=== PATIENT | male | born 1985 | race Two or more races ===

== ENCOUNTER 2020-09-03 09:59 | Emergency (ER) | payer MEDICAID, SELFPAY ==
[2020-09-03 12:18] VITALS: BP 126/74; PULSE 61; RESP 16; TEMP 36.6; O2SAT 99; BMI 31.0
--- NOTE | 2020-09-03 12:18 | ED.CHESTPAIN ---
HPI - Chest Pain General Chief Complaint: Chest Pain Stated Complaint: chest pain Time Seen by Provider: 09/03/20 12:18 Source: patient Mode of arrival: ambulatory Limitations: no limitations History of Present Illness MD complaint: chest pain Pertinent past history: other (costochondritis) Onset (ago): day(s) (yesterday) Timing of current episode: constant Prior episodes: Yes Onset: during rest Pain location: right chest Pain radiation: none Severity: moderate Quality: aching Relieving factors: nothing Exacerbating factors: movement Treatment prior to arrival: other (tried flexeril without relief) Related Data Allergies Allergy/AdvReac Type Severity Reaction Status Date / Time penicillin V Allergy Unknown rash Verified 09/21/18 00:00 Penicillins [PENICILLINS] Allergy Unknown RASH Unverified 07/26/20 17:41 pravastatin Allergy Unknown chest Verified 09/21/18 00:00 pain, constipation Review of Systems Review of Systems: Constitutional : No Weight loss, No Fever, No Chills ENT/Mouth : No sore throat, No Rhinorrhea Eyes: No Eye Pain, No Swelling Cardiovascular : pos Chest Pain, no SOB, no Dyspnea on Exertion, No Orthopnea, No Edema, No Palpitations Respiratory : No Cough, No Sputum Gastrointestinal : no Nausea, No Vomiting, No Diarrhea, No abdominal Pain, No Hematochezia, No Melena Genitourinary : No Dysuria, No Urinary Frequency Musculoskeletal : No joint pain, No Myalgias, No Joint Swelling Skin : No Skin Lesions, No rash Neuro : No Weakness, No Numbness, No Dizziness, No Headache Psych : No Anxiety/Panic, No Depression Heme/Lymph: No Bruising, No Lymphadenopathy Endocrine : No Polyuria, No Polydipsia All other systems reviewed and are negative [facility] Past Medical History Attestation statement: The following information was validated with the patient. Medical History Costochondritis Social History Social History Alcohol intake: never Smoking Status: Never smoker Use of substances other than those prescribed or required for medical reasons: No Advance Directives: No Advance Directives Information Provided: Yes Physical Exam Vital Signs: Vital Signs: Vital Signs Temp Pulse Resp BP Pulse Ox 09/03/20 12:18 97.9 F 61 16 126/74 99 Body Mass Index 31.0 Appearance: Alert. Oriented X3. No acute distress. Eyes: Pupils equal, round and reactive to light. ENT: Pharynx normal. Neck: Normal inspection. Neck supple. CVS: Normal heart rate and rhythm. Pulses normal. R sided chest ttp reproduces pain Respiratory: No respiratory distress. Breath sounds normal. Abdomen: Soft and nontender. Skin: Skin warm and dry. Normal skin color. Normal skin turgor. Extremities: No lower extremity edema. No calf ttp Neuro: Oriented X 3. No motor deficit. No sensory deficit. Course Course Course Narrative: no acute findings, stable for DC MDM - Chest Pain MDM Narrative Medical decision making narrative: 35 yo male with hx of chronic chest pain and costochondritis here with pain no change from baseline, at this time will need labs, troponin x 1, EKG, CXR seems more MSK in nature Lab Data Result diagrams: 09/03/20 12:46 09/03/20 12:46 Labs: Lab Results 09/03/20 09/03/20 09/03/20 Range/Units 12:46 12:46 12:46 WBC 8.3 (4.8-10.8) X10*3/uL RBC 4.93 (4.60-5.80) X10*6/uL Hgb 14.9 (14.0-18.0) g/dl Hct 44.3 (42-52) % MCV 89.9 (80-98) fL MCH 30.2 (27.0-33.0) pg MCHC 33.6 (31.0-36.0) g/dl RDW 13.2 (11.0-16.0) % Plt Count 226 (160-400) X10*3/uL MPV 11.5 (9.4-12.4) fL Immature Gran % (Auto) 0.4 (0.0-0.4) % Neut % (Auto) 71.1 (45-73) % Lymph % (Auto) 19.6 L (20-40) % [place] % (Auto) 7.8 (2-11) % Eos % (Auto) 0.7 (0-4) % Baso % (Auto) 0.4 (0-2) % Lymph # (Auto) 1.6 (1.2-4.9) X10*3/uL [place] # (Auto) 0.7 (0.1-1.2) X10*3/uL Eos # (Auto) 0.1 (0.0-0.4) X10*3/uL Baso # (Auto) 0.0 (0.0-0.2) X10*3/uL Abs Immat Gran (auto) 0.03 (0.00-0.03) X10*3/uL Absolute Neuts (auto) 5.9 (2.0-8.3) X10*3/uL Absolute Nucleated RBC 0.000 (0.0-0.012) X10*3/uL Nucleated RBC % (auto) 0.0 (0.0-0.2) /100WBC Hold Blue Top SEE NOTE Sodium 138 (135-145) mmol/L Potassium 4.5 (3.3-5.1) mmol/l Chloride 105 (96-108) mmol/L Carbon Dioxide 24 (22-29) mmol/L Anion Gap 14 (12-20) BUN 21 H (9-16) mg/dL Creatinine 1.17 (0.5-1.4) mg/dL Estim Creat Clear Calc 100.3 Estimated GFR > 60 Random Glucose 92 (60-115) mg/dL Calcium 9.4 (8.4-10.2) mg/dL Troponin I High Sens (<3.5-35.0) ng/L 09/03/20 Range/Units 12:46 WBC (4.8-10.8) X10*3/uL RBC (4.60-5.80) X10*6/uL Hgb (14.0-18.0) g/dl Hct (42-52) % MCV (80-98) fL MCH (27.0-33.0) pg MCHC (31.0-36.0) g/dl RDW (11.0-16.0) % Plt Count (160-400) X10*3/uL MPV (9.4-12.4) fL Immature Gran % (Auto) (0.0-0.4) % Neut % (Auto) (45-73) % Lymph % (Auto) (20-40) % [place] % (Auto) (2-11) % Eos % (Auto) (0-4) % Baso % (Auto) (0-2) % Lymph # (Auto) (1.2-4.9) X10*3/uL [place] # (Auto) (0.1-1.2) X10*3/uL Eos # (Auto) (0.0-0.4) X10*3/uL Baso # (Auto) (0.0-0.2) X10*3/uL Abs Immat Gran (auto) (0.00-0.03) X10*3/uL Absolute Neuts (auto) (2.0-8.3) X10*3/uL Absolute Nucleated RBC (0.0-0.012) X10*3/uL Nucleated RBC % (auto) (0.0-0.2) /100WBC Hold Blue Top Sodium (135-145) mmol/L Potassium (3.3-5.1) mmol/l Chloride (96-108) mmol/L Carbon Dioxide (22-29) mmol/L Anion Gap (12-20) BUN (9-16) mg/dL Creatinine (0.5-1.4) mg/dL Estim Creat Clear Calc Estimated GFR Random Glucose (60-115) mg/dL Calcium (8.4-10.2) mg/dL Troponin I High Sens 5.0 (<3.5-35.0) ng/L ECG Data ECG #1: Attestation: I personally reviewed and interpreted this ECG as follows: ECG interpretation date: 09/03/20 ECG interpretation time: 13:27 Interpretation: Rate: 76 Rhythm: NSR [place]: normal Normal P waves. Normal JAELYN. Normal QRS complex. ST T wave : normal , tall T wvae V2 qTC: normal prior studies: no change no acute ischemia The study has been interpreted contemporaneously by me. .
[2020-09-03 12:22] VITALS: PULSE 61
--- NOTE | 2020-09-03 12:23 | XR_ITS ---
EXAMINATION: XR CHEST CLINICAL INFORMATION: Pain COMPARISON: Chest radiographs 07/12/2020, 10/18/2019 TECHNIQUE: Portable upright AP view of the chest was obtained. FINDINGS: The lungs are clear. There is no pneumothorax, pleural reaction, airspace consolidation, or effusion. The heart is normal in size. The hilar and mediastinal contours are normal. Bony structures show subchondral cysts or subchondral erosive changes distal clavicle, new from 10/18/2019. No acromioclavicular separation. Remainder of the bony structures are unremarkable. XR/XR chest 1V IMPRESSION: 1. Lungs clear. No pneumothorax, infiltrate, or effusion. 2. Subchondral cysts or erosions distal left clavicle, new from 10/18/2019. No AC separation.
[2020-09-03 12:52] LABS: MANUAL DIFF FLAG NO
[2020-09-03] MEDS: Ketorolac Tromethamine 30 MG/ML VIAL IVPUSH (12:53)
[2020-09-03 12:57] LABS: Basophils Percent Auto 0.4 % (0-2); Eosinophils Absolute Auto 0.1 X10*3/uL (0.0-0.4); Eosinophils Percent Auto 0.7 % (0-4); Hematocrit 44.3 % (42-52); Hemoglobin 14.9 g/dl (14.0-18.0); Imm Gran Abs Auto 0.03 X10*3/uL (0.00-0.03); Imm Gran Pct Auto 0.4 % (0.0-0.4); Lymphocytes Absolute Auto 1.6 X10*3/uL (1.2-4.9); Lymphocytes Percent Auto 19.6 % (20-40); Mean Corpuscular HGB Conc 33.6 g/dl (31.0-36.0); Mean Corpuscular Hemoglobin 30.2 pg (27.0-33.0); Mean Corpuscular Volume 89.9 fL (80-98); Mean Platelet Volume 11.5 fL (9.4-12.4); Monocytes Absolute Auto 0.7 X10*3/uL (0.1-1.2); Monocytes Percent Auto 7.8 % (2-11); Neutrophils Absolute Auto 5.9 X10*3/uL (2.0-8.3); Neutrophils Percent Auto 71.1 % (45-73); Platelet Count 226 X10*3/uL (160-400); Red Blood Count 4.93 X10*6/uL (4.60-5.80); Red Cell Distribution Width 13.2 % (11.0-16.0); White Blood Count 8.3 X10*3/uL (4.8-10.8)
[2020-09-03 13:16] LABS: Anion Gap 14 (12-20); Blood Urea Nitrogen 21 mg/dL (9-16); Calcium 9.4 mg/dL (8.4-10.2); Carbon Dioxide 24 mmol/L (22-29); Chloride 105 mmol/L (96-108); Creatinine Clr Calc Pharmacy 100.3; Estimated Glomerular Filt Rate > 60; Glucose Random 92 mg/dL (60-115); Potassium 4.5 mmol/l (3.3-5.1); Sodium 138 mmol/L (135-145)
--- NOTE | 2020-09-04 07:56 | ECG_ITS ---
Test Reason : CP Blood Pressure : / mmHG Vent. Rate : 076 BPM Atrial Rate : 076 BPM P-R Int : 148 ms QRS Dur : 090 ms QT Int : 372 ms P-R-T Axes : 059 008 019 degrees QTc Int : 418 ms Normal sinus rhythm Normal ECG When compared with ECG of 12-JUL-2020 11:02, No significant change was found Referred By: Lucrecia Rose Electronically Signed By:ARLENE RUBY MD
== END 2020-09-03 14:07 | disposition home or self-care (01) ==
PROVIDERS: Emergency Provider Emergency Medicine
DX: R07.9 Chest pain, unspecified (principal)
CPT/HCPCS: 36415; 71045; 80048; 84484; 85025; 93005; 96374; 99284; J1885

== ENCOUNTER 2020-12-26 14:34 | Emergency (ER) | payer MEDICAID, SELFPAY | END 2020-12-26 21:32 | disposition left against medical advice (07) | PROVIDERS: Emergency Provider Emergency Medicine | DX: M79.10 Myalgia, unspecified site (principal) ==

== ENCOUNTER 2020-12-27 06:17 | Emergency (ER) | payer MEDICAID, SELFPAY ==
--- NOTE | ~2020-12-27 | XR_ITS ---
EXAMINATION: XR CHEST CLINICAL INFORMATION: Chest pain COMPARISON: 09/03/2020 TECHNIQUE: Frontal view of the chest was obtained. FINDINGS: The lungs are well expanded. There is no focal consolidation, edema, or effusion. No pneumothorax. The cardiomediastinal silhouette is within normal limits. No acute osseous abnormality. XR/XR chest 1V IMPRESSION: Clear lungs.
--- NOTE | 2020-12-27 06:22 | ECG_ITS ---
Test Reason : CHEST PAIN Blood Pressure : / mmHG Vent. Rate : 067 BPM Atrial Rate : 067 BPM P-R Int : 156 ms QRS Dur : 092 ms QT Int : 378 ms P-R-T Axes : 059 025 018 degrees QTc Int : 399 ms Normal sinus rhythm Normal ECG When compared to the previous EKG of No significant changes seen Referred By: Generic ED Physician Electronically Signed By:Drew Sweeney
[2020-12-27 08:19] VITALS: BP 121/78; PULSE 64; RESP 16; TEMP 36.7; O2SAT 99; BMI 32.5
--- NOTE | 2020-12-27 08:28 | ED_ITS ---
HPI - General Adult General Chief complaint: General Medical Stated complaint: chest pain Time Seen by Provider: 12/27/20 08:26 Source: patient Mode of arrival: ambulatory Limitations: no limitations History of Present Illness HPI narrative: 35 y/o male presenting with intermittent chest pain for the last 2-3 days, headaches, and sinus pressure for the last 1 week. He reports the pain is all along his lower chest wall and worse when he moves, lifts, coughs and touches it. He is not short of breath or having any difficultly breathing. No fever, chills, N/V/D or abdominal pain. He has nasal congestion with yellow discharge. He has constant headache and has a history of migraines and sinus infection in the past. He has no personal or family history of early cardiac disease. No personal or family history of blood clots. MD complaint: chest pain & headache Onset (ago): day(s) (3) Location: head and chest Radiation: non-radiation Severity: moderate Quality: aching Pain Consistency: constant Relieving factors: rest Exacerbating factors: movement and other (palpation) Associated symptoms: headaches Treatments prior to arrival: none Related Data Previous Rx's Medication Instructions Recorded ibuprofen 600 mg PO Q6H PRN #30 tab 09/03/20 doxycycline monohydrate 100 mg PO BID #14 cap 12/27/20 fluticasone propionate [Flonase 1 spray INTRANASAL Q12H #16 g 12/27/20 Allergy Relief] ibuprofen 600 mg PO Q6H PRN #20 tab 12/27/20 Allergies Allergy/AdvReac Type Severity Reaction Status Date / Time penicillin V Allergy Unknown rash Verified 09/21/18 00:00 Penicillins [PENICILLINS] Allergy Unknown RASH Verified 12/27/20 08:24 pravastatin Allergy Unknown chest Verified 09/21/18 00:00 pain, constipation Review of Systems Review of Systems: Constitutional: No Fever, No Chills ENT/Mouth: No sore throat, + Rhinorrhea, No Swallowing Difficulty Eyes: No Eye Pain, No Swelling, No Redness Cardiovascular: + Chest Pain, No SOB, No Orthopnea, No Edema Respiratory: No Cough, No Sputum, No Wheezing, No dyspnea Gastrointestinal: No Nausea, No Vomiting, No Diarrhea, No abdominal Pain, No Hematochezia, No Melena Genitourinary: No Dysuria, No Urinary Frequency, No Hematuria Musculoskeletal: No joint pain, + Myalgias Skin: No Skin Lesions, No rash Neuro: No Weakness, No Numbness, No Dizziness, + Headache Psych: No Anxiety/Panic, No Depression Heme/Lymph: No Bruising, No Lymphadenopathy Endocrine: No Polyuria, No Polydipsia [facility] Past Medical History Attestation statement: The following information was validated with the patient. Medical History Asthma Costochondritis Migraines Sinus congestion Surgical History (Updated 12/27/20 @ 08:23 by Dyana Bonilla) No significant past surgical history Social History Social History Alcohol intake: never Smoking Status: Never smoker Advance Directives: No Advance Directives Information Provided: Yes Physical Exam Vital Signs: Vital Signs: Last Vital Signs Temp 98.0 F 12/27/20 08:19 Pulse 64 12/27/20 08:19 Resp 16 12/27/20 08:19 BP 121/78 12/27/20 08:19 Pulse Ox 99 12/27/20 08:19 Body Mass Index 32.5 Appearance: Alert. Oriented X3. No acute distress. Eyes: Pupils equal, round and reactive to light. ENT: Pharynx normal. Nasal turbinates are erythematous w/ yellow nasal discharge. Neck: Normal inspection. Neck supple. CVS: Normal heart rate and rhythm. Pulses normal. Lower bilateral ribs are tender to touch. Respiratory: No respiratory distress. Breath sounds normal. Abdomen: Soft and nontender. +BS x4 Skin: Skin warm and dry. Normal skin color. Normal skin turgor. No rashes. Extremities: No lower extremity edema. Negative Eladia's sign. Neuro: Oriented X 3. No motor deficit. No sensory deficit. Course Course Course Narrative: 35 y/o male presenting with reproducible, non-radiating chest pain. 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 Reassuring PE with normal VS and EKG. Doubt ACS or cardiac etiology but will get troponin and medical workup. PERC negative. CXR pending. Also concern for acute sinusitis - will plan to treat with Augmentin and Flonase. Reevaluation(s) Reevaluation #1: CXR negative. EKG normal. Troponin negative. COVID is pending. Reevaluation #2: Resp viral panel is negative. Patient is resting in bed comfortably watching TV on his phone. Discussed results and plan to treat for costochondritis and acute sinusitis. Medical Decision Making Lab Data Result diagrams: 12/27/20 09:20 12/27/20 09:20 Labs: Lab Results 12/27/20 12/27/20 12/27/20 Range/Units 09:20 09:20 09:20 WBC 7.2 (4.8-10.8) X10*3/uL RBC 4.63 (4.60-5.80) X10*6/uL Hgb 13.8 L (14.0-18.0) g/dl Hct 41.7 L (42-52) % MCV 90.1 (80-98) fL MCH 29.8 (27.0-33.0) pg MCHC 33.1 (31.0-36.0) g/dl RDW 13.1 (11.0-16.0) % Plt Count 199 (160-400) X10*3/uL MPV 11.4 (9.4-12.4) fL Immature Gran % (Auto) 0.3 (0.0-0.4) % Neut % (Auto) 69.9 (45-73) % Lymph % (Auto) 19.5 L (20-40) % [place] % (Auto) 9.2 (2-11) % Eos % (Auto) 0.7 (0-4) % Baso % (Auto) 0.4 (0-2) % Lymph # (Auto) 1.4 (1.2-4.9) X10*3/uL [place] # (Auto) 0.7 (0.1-1.2) X10*3/uL Eos # (Auto) 0.1 (0.0-0.4) X10*3/uL Baso # (Auto) 0.0 (0.0-0.2) X10*3/uL Abs Immat Gran (auto) 0.02 (0.00-0.03) X10*3/uL Absolute Neuts (auto) 5.0 (2.0-8.3) X10*3/uL Absolute Nucleated RBC 0.000 (0.0-0.012) X10*3/uL Nucleated RBC % (auto) 0.0 (0.0-0.2) /100WBC Hold Blue Top SEE NOTE Sodium 139 (135-145) mmol/L Potassium 4.8 (3.3-5.1) mmol/L Chloride 106 (96-108) mmol/L Carbon Dioxide 28 (22-29) mmol/L Anion Gap 10 L (12-20) BUN 20 H (9-16) mg/dL Creatinine 0.90 (0.5-1.4) mg/dL Estim Creat Clear Calc 133.4 Estimated GFR > 60 Random Glucose 99 (60-115) mg/dL Calcium 8.7 D (8.4-10.2) mg/dL Troponin I High Sens (<3.5-35.0) ng/L Coronavirus (PCR) (Negative) Influenza Type A (PCR) (Negative) Influenza Type B (PCR) (Negative) RSV RNA Qual (PCR) (Negative) 12/27/20 12/27/20 Range/Units 09:20 09:20 WBC (4.8-10.8) X10*3/uL RBC (4.60-5.80) X10*6/uL Hgb (14.0-18.0) g/dl Hct (42-52) % MCV (80-98) fL MCH (27.0-33.0) pg MCHC (31.0-36.0) g/dl RDW (11.0-16.0) % Plt Count (160-400) X10*3/uL MPV (9.4-12.4) fL Immature Gran % (Auto) (0.0-0.4) % Neut % (Auto) (45-73) % Lymph % (Auto) (20-40) % [place] % (Auto) (2-11) % Eos % (Auto) (0-4) % Baso % (Auto) (0-2) % Lymph # (Auto) (1.2-4.9) X10*3/uL [place] # (Auto) (0.1-1.2) X10*3/uL Eos # (Auto) (0.0-0.4) X10*3/uL Baso # (Auto) (0.0-0.2) X10*3/uL Abs Immat Gran (auto) (0.00-0.03) X10*3/uL Absolute Neuts (auto) (2.0-8.3) X10*3/uL Absolute Nucleated RBC (0.0-0.012) X10*3/uL Nucleated RBC % (auto) (0.0-0.2) /100WBC Hold Blue Top Sodium (135-145) mmol/L Potassium (3.3-5.1) mmol/L Chloride (96-108) mmol/L Carbon Dioxide (22-29) mmol/L Anion Gap (12-20) BUN (9-16) mg/dL Creatinine (0.5-1.4) mg/dL Estim Creat Clear Calc Estimated GFR Random Glucose (60-115) mg/dL Calcium (8.4-10.2) mg/dL Troponin I High Sens 4.3 (<3.5-35.0) ng/L Coronavirus (PCR) NEGATIVE (Negative) Influenza Type A (PCR) NEGATIVE (Negative) Influenza Type B (PCR) NEGATIVE (Negative) RSV RNA Qual (PCR) NEGATIVE (Negative) ECG Data Attestation: I personally reviewed and interpreted this ECG as follows: Prior ECG tracings: available for review Interpretation: normal sinus rhythm, HR 67 bpm, normal CO interval, normal QTc, no ST segment elevations or depressions. Scores Heart Score History: -0- slightly suspicious ECG: -0- normal Age: -0- < or = 45 Risk factory: -0- no risk factors known Troponin: -0- < or = normal limit Score: 0 Risk: 1.7% Critical Care Time Critical Care Time Critical Care Time: No Discharge Plan Discharge Clinical Impression: Acute costochondritis Acute sinusitis Qualifiers: Sinusitis location: frontal Recurrence: recurrent Qualified Code(s): J01.11 - Acute recurrent frontal sinusitis Patient Disposition: Home, Self-Care Instructions: Sinusitis (ED), Costochondritis (ED) Additional Instructions: You were tested for COVID, Influenza and RSV - all were negative. Your EKG was normal. Your blood workup was normal. Your chest x-ray was normal. It is likely that your pain is muscular. Recommend rest, no strenuous activity or heavy lifting. Take the prescribed anti-inflammatory medication as needed for pain. Take the prescribed antibiotic as directed for sinus infection. Follow up with your doctor on Thursday. If your symptoms worsen, come back to the ER for further evaluation. Prescriptions: New doxycycline monohydrate 100 mg capsule 100 mg PO BID Qty: 14 RF: 0 fluticasone propionate [Flonase Allergy Relief] 50 mcg/actuation spray,suspension 1 spray intranasal Q12H Qty: 16 RF: 0 ibuprofen 600 mg tablet 600 mg PO Q6H PRN (Reason: pain) Qty: 20 RF: 0 No Action ibuprofen 600 mg tablet 600 mg PO Q6H PRN (Reason: pain) Qty: 30 RF: 0 Stand Alone Forms: Work/School Release Interventions: ED Discharge Assessment Last Done: 12/27/20 10:57 Discharge Date/Time: 12/27/20 10:57
[2020-12-27 09:27] LABS: MANUAL DIFF FLAG NO
[2020-12-27 09:28] LABS: Basophils Percent Auto 0.4 % (0-2); Eosinophils Absolute Auto 0.1 X10*3/uL (0.0-0.4); Eosinophils Percent Auto 0.7 % (0-4); Hematocrit 41.7 % (42-52); Hemoglobin 13.8 g/dl (14.0-18.0); Imm Gran Abs Auto 0.02 X10*3/uL (0.00-0.03); Imm Gran Pct Auto 0.3 % (0.0-0.4); Lymphocytes Absolute Auto 1.4 X10*3/uL (1.2-4.9); Lymphocytes Percent Auto 19.5 % (20-40); Mean Corpuscular HGB Conc 33.1 g/dl (31.0-36.0); Mean Corpuscular Hemoglobin 29.8 pg (27.0-33.0); Mean Corpuscular Volume 90.1 fL (80-98); Mean Platelet Volume 11.4 fL (9.4-12.4); Monocytes Absolute Auto 0.7 X10*3/uL (0.1-1.2); Monocytes Percent Auto 9.2 % (2-11); Neutrophils Percent Auto 69.9 % (45-73); Platelet Count 199 X10*3/uL (160-400); Red Blood Count 4.63 X10*6/uL (4.60-5.80); Red Cell Distribution Width 13.1 % (11.0-16.0); White Blood Count 7.2 X10*3/uL (4.8-10.8)
[2020-12-27 10:01] LABS: Troponin-I High Sensitivity 4.3 ng/L (<3.5-35.0)
[2020-12-27 10:08] LABS: Anion Gap 10 (12-20); Blood Urea Nitrogen 20 mg/dL (9-16); Calcium 8.7 mg/dL (8.4-10.2); Carbon Dioxide 28 mmol/L (22-29); Chloride 106 mmol/L (96-108); Creatinine Clr Calc Pharmacy 133.4; Estimated Glomerular Filt Rate > 60; Glucose Random 99 mg/dL (60-115); Potassium 4.8 mmol/L (3.3-5.1); Sodium 139 mmol/L (135-145)
[2020-12-27 10:38] LABS: Influenza A PCR NEGATIVE (Negative); Influenza B PCR NEGATIVE (Negative); Resp Syncy Virus RNA Qual PCR NEGATIVE (Negative); SARS COV2 PCR INHOUSE NEGATIVE (Negative)
== END 2020-12-27 10:57 | disposition home or self-care (01) ==
PROVIDERS: Physician Assistant; Emergency Provider Emergency Medicine
DX: M94.0 Chondrocostal junction syndrome [Tietze] (principal); J01.11 Acute recurrent frontal sinusitis; Z20.822 Contact with and (suspected) exposure to COVID-19; J45.909 Unspecified asthma, uncomplicated
CPT/HCPCS: 0241U; 36415; 71045; 80048; 84484; 85025; 93005; 99283

== ENCOUNTER 2021-01-23 07:10 | Emergency (ER) | payer MEDICAID, SELFPAY ==
[2021-01-23 07:24] VITALS: BP 117/69; PULSE 65; RESP 18; TEMP 36.8; O2SAT 97; BMI 32.5
--- NOTE | 2021-01-23 07:26 | ED.HA ---
HPI - Headache General Chief Complaint: Headache Stated Complaint: headache, ear pain Time Seen by Provider: 01/23/21 07:26 Source: patient Mode of arrival: ambulatory Limitations: no limitations History of Present Illness HPI Narrative: Patient history of migraine headaches complaining of headache since yesterday most located localized in the frontal area with photosensitivity denies any nausea /vomiting headache is similar to that in the past also patient complaining of both ears blocked left more than the right for last few days MD elicited complaint: headache Onset (ago): day(s) Onset description: gradually Location: frontal Severity: moderate Quality & Timing: throbbing and similar to previous headaches Exacerbating factors: light Relieving factors: nothing Context: occurred at rest Associated symptoms: none Treatments prior to arrival: ibuprofen Related Data Previous Rx's Medication Instructions Recorded ibuprofen 600 mg PO Q6H PRN #30 tab 09/03/20 doxycycline monohydrate 100 mg PO BID #14 cap 12/27/20 fluticasone propionate [Flonase 1 spray INTRANASAL Q12H #16 g 12/27/20 Allergy Relief] ibuprofen 600 mg PO Q6H PRN #20 tab 12/27/20 [id number] 1 cap PO Q6H PRN #20 cap 01/23/21 [Fioricet] sumatriptan succinate [Imitrex] See Rx Instructions .ROUTE 01/23/21 .COMPLEX #7 tab Allergies Allergy/AdvReac Type Severity Reaction Status Date / Time penicillin V Allergy Unknown rash Verified 09/21/18 00:00 Penicillins [PENICILLINS] Allergy Unknown RASH Verified 12/27/20 08:24 pravastatin Allergy Unknown chest Verified 09/21/18 00:00 pain, constipation Review of Systems Review of Systems: Yes all other systems are reviewed and are negative [facility] Past Medical History Medical History Asthma Costochondritis Migraines Sinus congestion Surgical History No significant past surgical history Social History Social History Alcohol intake: never Smoking Status: Never smoker Advance Directives: Yes Advance Directives Information Provided: Yes Advance Directives on File: No Physical Exam Vital Signs: Vital Signs: Last Vital Signs Temp 98.2 F 01/23/21 07:24 Pulse 65 01/23/21 07:24 Resp 18 01/23/21 07:24 BP 117/69 01/23/21 07:24 Pulse Ox 97 01/23/21 07:24 Body Mass Index 32.5 Appearance: Alert. Oriented X3. No acute distress. Eyes: Pupils equal, round and reactive to light. ENT: Pharynx normal. Wax in both ears blocking the tympanic membrane, nontender temporal arteries Neck: Normal inspection. Neck supple. CVS: Normal heart rate and rhythm. Pulses normal. Respiratory: No respiratory distress. Breath sounds normal. Abdomen: Soft and nontender. Bowel sounds are present, no mass palpable, Skin: Skin warm and dry. Normal skin color. Normal skin turgor. Extremities: No lower extremity edema. Neuro: Oriented X 3. No motor deficit. No sensory deficit. Procedures Ear Wax Removal Both Ears: Results: Re-examined: cerumen removed completely TM Examination: TM(s) intact, normal appearance Ear Canal Exam: atraumatic Patient Tolerated Procedure: well Complications: no problems Technique: ear canal irrigated Discharge Plan Discharge Clinical Impression: Migraine Qualifiers: Migraine type: without aura Status migrainosus presence: without status migrainosus Intractability: not intractable Qualified Code(s): G43.009 - Migraine without aura, not intractable, without status migrainosus Impacted ear wax Qualifiers: Laterality: bilateral Qualified Code(s): H61.23 - Impacted cerumen, bilateral Patient Disposition: Home, Self-Care Instructions: Migraine Headache (ED) Additional Instructions: Take medication as prescribed. Care for earwax as advised Prescriptions: New sumatriptan succinate [Imitrex] 50 mg tablet See Rx Instructions .ROUTE .COMPLEX Qty: 7 RF: 0 [id number] [Fioricet] 50-300-40 mg capsule 1 cap PO Q6H PRN (Reason: headache) Qty: 20 RF: 0 No Action ibuprofen 600 mg tablet 600 mg PO Q6H PRN (Reason: pain) Qty: 30 RF: 0 doxycycline monohydrate 100 mg capsule 100 mg PO BID Qty: 14 RF: 0 fluticasone propionate [Flonase Allergy Relief] 50 mcg/actuation spray,suspension 1 spray intranasal Q12H Qty: 16 RF: 0 ibuprofen 600 mg tablet 600 mg PO Q6H PRN (Reason: pain) Qty: 20 RF: 0 Stand Alone Forms: Work/School Release
== END 2021-01-23 09:05 | disposition home or self-care (01) ==
PROVIDERS: Emergency Provider Internal Medicine
DX: G43.009 Migraine without aura, not intractable, without status migrainosus (principal); H61.23 Impacted cerumen, bilateral; J45.909 Unspecified asthma, uncomplicated
CPT/HCPCS: 69209; 96372; 99283; 99284; J3030

== ENCOUNTER 2021-01-31 08:14 | Emergency (ER) | payer MEDICAID, SELFPAY ==
[2021-01-31 08:22] VITALS: BP 125/84; PULSE 71; RESP 16; TEMP 36.6; O2SAT 97; BMI 32.5
--- NOTE | 2021-01-31 08:30 | ED.HA ---
HPI - Headache General Chief Complaint: Headache Stated Complaint: headache Time Seen by Provider: 01/31/21 08:29 Source: patient Mode of arrival: ambulatory Limitations: language barrier (Some broken Occitan deaf interpreter present) History of Present Illness HPI Narrative: 35-year-old male with history of migraine headaches which usually are exacerbated by changes in weather states he has been suffering from this for majority of his adult life and his symptoms are consistent with his prior episodes which are pressure-like pain in the frontal sinuses and wrapping around to the side of the head. States he usually does well with Fioricet for this. States he was most recently seen at this facility a week ago he was given amitriptyline which he is not familiar with any took and help but still has episodes of the headache. He denies any fever chills. No neck pain. No vision changes. States last time he thought he was going to get a prescription of Fioricet which works for him. MD elicited complaint: migraine Pertinent past history: migraines Onset (ago): day(s) Onset description: gradually Location: frontal and temporal Severity: moderate Quality & Timing: aching Exacerbating factors: none Relieving factors: prescription medication Context: other (During weather change) Associated symptoms: none Treatments prior to arrival: none Related Data Previous Rx's Medication Instructions Recorded ibuprofen 600 mg PO Q6H PRN #30 tab 09/03/20 doxycycline monohydrate 100 mg PO BID #14 cap 12/27/20 fluticasone propionate [Flonase 1 spray INTRANASAL Q12H #16 g 12/27/20 Allergy Relief] ibuprofen 600 mg PO Q6H PRN #20 tab 12/27/20 cytseivmhi-sqwviajemmryl-ofpg 1 cap PO Q6H PRN #20 cap 01/23/21 [Fioricet] sumatriptan succinate [Imitrex] See Rx Instructions .ROUTE 01/23/21 .COMPLEX #7 tab tvslydhcqk-nyxsutnxlmuld-yivf 1 cap PO Q8H PRN #14 cap 01/31/21 [Fioricet] doxycycline monohydrate 100 mg PO BID 7 Days #14 cap 01/31/21 Allergies Allergy/AdvReac Type Severity Reaction Status Date / Time penicillin V Allergy Unknown rash Verified 09/21/18 00:00 Penicillins [PENICILLINS] Allergy Unknown RASH Verified 12/27/20 08:24 pravastatin Allergy Unknown chest Verified 09/21/18 00:00 pain, constipation Review of Systems Review of Systems: Constitutional: No Weight loss, No Fever, No Chills, No Night Sweats, No Fatigue, No Malaise ENT/Mouth: No Hearing loss, No Ear Pain, No Nasal Congestion, + Sinus Pain, No Hoarseness, No sore throat, No Rhinorrhea, No Swallowing Difficulty Eyes: No Eye Pain, No Swelling, No Redness, No Foreign Body, No Discharge, No Vision Changes Cardiovascular: No Chest Pain, No SOB, No Dyspnea on Exertion, No Orthopnea, No Edema, No Palpitations Respiratory: No Cough, No Sputum, No Wheezing, No Smoke Exposure, No Dyspnea Gastrointestinal: No Nausea, No Vomiting, No Diarrhea, No Constipation, No abdominal Pain, No Hematochezia, No Melena Genitourinary: No Dysuria, No Urinary Frequency, No Hematuria, No Urinary Incontinence, No Urgency, No Flank Pain, No Urinary Flow Changes, No Hesitancy Musculoskeletal: No joint pain, No Myalgias, No Joint Swelling Skin: No Skin Lesions, No rash Neuro: No Weakness, No Numbness, No Paresthesias, No Loss of Consciousness, No Dizziness, No Headache Psych: No Social Issues Heme/Lymph: No Bruising, No Bleeding,No Lymphadenopathy Endocrine: No Polyuria, No Polydipsia, No Temperature Intolerance Yes all other systems are reviewed and are negative [facility] Past Medical History Medical History Asthma Costochondritis Migraines Sinus congestion Surgical History No significant past surgical history Social History Social History Alcohol intake: never Smoking Status: Never smoker Advance Directives: No Advance Directives Information Provided: No Physical Exam Vital Signs: Vital Signs: Last Vital Signs Temp 97.8 F 01/31/21 08:22 Pulse 71 01/31/21 08:22 Resp 16 01/31/21 08:22 BP 125/84 01/31/21 08:22 Pulse Ox 97 01/31/21 08:22 Body Mass Index 32.5 Reviewed Const: General: cooperative and healthy appearing; No acute distress or intoxicated appearing Nutritional Appearance: average body habitus Orientation/consciousness: patient oriented x3 HENMT: Head: Yes normal to inspection Ears: hearing grossly normal bilaterally General nose exam: Normal external nose present Face and sinus: Yes sinus tenderness (Forntal sinuses) Eyes: General: appearance normal, both eyes and all related structures Visual Bolivar: normal visual bolivar by confrontation Neck: Neck: Yes normal visual inspection, No positive Brudzinski's sign, No positive Kernig's sign and No tender Thyroid: Thyroid normal Chest: Chest palpation & inspection: normal inspection of the chest Resp: Effort & Inspection: normal respiratory effort Auscultation: clear to auscultation bilaterally Cardio: Jugular venous distension: no JVD Rhythm: regular rhythm Heart sounds: S1 normal heart sound present and S2 normal heart sound present GI: Inspection: Yes normal to inspection Percussion: Yes normal to percussion Auscultation: normal bowel sounds : General: Yes no CVA tenderness Back/Spine/Pelvis: Back: no CVA tenderness Skin: General skin exam: no rashes or lesions noted Neuro: General: patient oriented x3 Extrem: General: Yes normal to inspection Course Course Course Narrative: AP consistent with migraine headache with superimposed sinusitis usually does better with Fioricet last visit appears that that was the plan however was not transmitted to his pharmacy. Will give prescription of Fioricet. Also doxycycline as there is sinus involvement and he has a penicillin allergy which is described as a rash and throat closing. He otherwise overall nontoxic appearing on his phone, no findings to suggest acute meningitis, SYED red flags. Findings/plan reviewed with him and he is comfortable plan. Stable for discharge. MDM - Headache Lab Data Labs: Lab Results 01/31/21 Range/Units 09:16 Coronavirus (PCR) NEGATIVE (Negative) Influenza Type A (PCR) NEGATIVE (Negative) Influenza Type B (PCR) NEGATIVE (Negative) RSV RNA Qual (PCR) NEGATIVE (Negative) Discharge Plan Discharge Clinical Impression: Headache, Sinusitis Patient Disposition: Home, Self-Care Instructions: Sinusitis (ED), Migraine Headache (ED) Additional Instructions: Your COVID test was negative I will give her prescription for Fioricet Also start home care for sinus infection as well as antibiotics as prescribed Return if any concerns or worsening symptoms otherwise follow-up with her primary care doctor as discussed Thank you Prescriptions: New mgaccsuczv-kwkhgqbzkacla-rnxn [Fioricet] 50-300-40 mg capsule 1 cap PO Q8H PRN (Reason: pain) Qty: 14 RF: 0 doxycycline monohydrate 100 mg capsule 100 mg PO BID 7 Days Qty: 14 RF: 0 No Action ibuprofen 600 mg tablet 600 mg PO Q6H PRN (Reason: pain) Qty: 30 RF: 0 doxycycline monohydrate 100 mg capsule 100 mg PO BID Qty: 14 RF: 0 fluticasone propionate [Flonase Allergy Relief] 50 mcg/actuation spray,suspension 1 spray intranasal Q12H Qty: 16 RF: 0 ibuprofen 600 mg tablet 600 mg PO Q6H PRN (Reason: pain) Qty: 20 RF: 0 sumatriptan succinate [Imitrex] 50 mg tablet See Rx Instructions .ROUTE .COMPLEX Qty: 7 RF: 0 nyhyiubnzt-sshhoxytfgltg-rucm [Fioricet] 50-300-40 mg capsule 1 cap PO Q6H PRN (Reason: headache) Qty: 20 RF: 0 Referrals: Jackelin Kuo MD [Primary Care Provider] - 1 week Stand Alone Forms: Work/School Release
[2021-01-31 10:09] LABS: Influenza A PCR NEGATIVE (Negative); Influenza B PCR NEGATIVE (Negative); Resp Syncy Virus RNA Qual PCR NEGATIVE (Negative); SARS COV2 PCR INHOUSE NEGATIVE (Negative)
== END 2021-01-31 11:11 | disposition home or self-care (01) ==
PROVIDERS: Nurse Practitioner Primary Care; Emergency Provider Emergency Medicine; PCP Internal Medicine
DX: R51.9 Headache, unspecified (principal); J32.9 Chronic sinusitis, unspecified; Z20.822 Contact with and (suspected) exposure to COVID-19
CPT/HCPCS: 0241U; 36415; 99283

== ENCOUNTER → 2021-03-20 14:06 | Outpatient (BNVA) | payer SELFPAY | PROVIDERS: PCP Internal Medicine; Visit Provider Physician Assistant Medical | DX: Z02.79 Encounter for issue of other medical certificate (principal) ==

== ENCOUNTER 2021-05-09 09:57 | Emergency (ER) | payer MEDICAID, SELFPAY ==
--- NOTE | ~2021-05-09 | XR_ITS ---
EXAMINATION: LEFT HAND AND RIGHT HAND. CLINICAL INFORMATION: Pain all over COMPARISON: None TECHNIQUE: 3 views each hand. FINDINGS: Right hand: There is subchondral lucency seen in the proximal segment mid phalanx second digit. No visible acute fracture, dislocation seen. The joint spaces throughout the right hand maintain normal. The soft tissues are normal. Left hand: There is no visible acute fracture, dislocation. The joint spaces are maintained normal. There is a small radiopaque metallic foreign body adjacent to the ulnar aspect of the rest measuring 3 mm. Otherwise rest of the soft tissues are normal. XR/XR hand LT min 3V IMPRESSION: Subchondral lucency proximal end mid phalanx second digit right hand likely geode. There is no acute fracture or, dislocation or subluxation involving either hands. There is a small radiopaque metallic foreign body along the ulnar aspect of the wrist left hand.
--- NOTE | ~2021-05-09 | XR_ITS ---
EXAMINATION: LEFT HAND AND RIGHT HAND. CLINICAL INFORMATION: Pain all over COMPARISON: None TECHNIQUE: 3 views each hand. FINDINGS: Right hand: There is subchondral lucency seen in the proximal segment mid phalanx second digit. No visible acute fracture, dislocation seen. The joint spaces throughout the right hand maintain normal. The soft tissues are normal. Left hand: There is no visible acute fracture, dislocation. The joint spaces are maintained normal. There is a small radiopaque metallic foreign body adjacent to the ulnar aspect of the rest measuring 3 mm. Otherwise rest of the soft tissues are normal. XR/XR hand RT min 3V IMPRESSION: Subchondral lucency proximal end mid phalanx second digit right hand likely geode. There is no acute fracture or, dislocation or subluxation involving either hands. There is a small radiopaque metallic foreign body along the ulnar aspect of the wrist left hand.
[2021-05-09 10:38] VITALS: BP 126/69; PULSE 70; RESP 18; TEMP 36.7; O2SAT 98; BMI 34.0
--- NOTE | 2021-05-09 10:52 | ED_ITS ---
HPI - General Adult General Chief complaint: Extremity Problem Stated complaint: FINGER PAIN Time Seen by Provider: 05/09/21 10:49 Source: patient Limitations: language barrier History of Present Illness HPI narrative: patient complaining of bilateral atraumatic hand pain. Pain is mostly located in the 2nd 3rd digit of the right hand. Patient denies trauma does states he works with his hands a lot. Patient also kept complaining of pa in in the left 3rd digit. It extends from the palm aspect of distal aspect of the digit. Patient denies any history of arthritis or overuse injuries in the past. Patient denies fever chills or rash. Related Data Previous Rx's Medication Instructions Recorded ibuprofen 600 mg PO Q6H PRN #30 tab 09/03/20 doxycycline monohydrate 100 mg PO BID #14 cap 12/27/20 fluticasone propionate [Flonase 1 spray INTRANASAL Q12H #16 g 12/27/20 Allergy Relief] ibuprofen 600 mg PO Q6H PRN #20 tab 12/27/20 jhjizzonoa-eriqqmaaxnvqi-fhvs 1 cap PO Q6H PRN #20 cap 01/23/21 [Fioricet] sumatriptan succinate [Imitrex] See Rx Instructions .ROUTE 01/23/21 .COMPLEX #7 tab wosryjrwtf-nczfqhphpmvdz-verb 1 cap PO Q8H PRN #14 cap 01/31/21 [Fioricet] doxycycline monohydrate 100 mg PO BID 7 Days #14 cap 01/31/21 Allergies Allergy/AdvReac Type Severity Reaction Status Date / Time penicillin V Allergy Unknown rash Verified 05/09/21 10:37 Penicillins [PENICILLINS] Allergy Unknown RASH Verified 05/09/21 10:37 pravastatin Allergy Unknown chest Verified 05/09/21 10:37 pain, constipation Review of Systems Constitutional: Constitutional: Denies chills, Denies fever(s) and Denies headache(s) ENT: Denies headache(s) Cardiovascular: Cardiovascular: Denies chest pain and Denies dyspnea Respiratory: Respiratory: Denies dyspnea Gastrointestinal: Gastrointestinal: Denies nausea and Denies vomiting Musculoskeletal: Comments: Right hand pain left hand pain positive swelling to the 2nd 3rd digits of the right hand and left hand 3rd digit Neurologic: Denies headache(s) [facility] Past Medical History Attestation statement: The following information was validated with the patient. Medical History Asthma Costochondritis Migraines Sinus congestion Surgical History No significant past surgical history Social History Social History Alcohol intake: never Advance Directives: Yes Advance Directives Information Provided: Yes Advance Directives on File: No Physical Exam Vital Signs: Vital Signs: Last Vital Signs Temp 98.0 F 05/09/21 10:38 Pulse 70 05/09/21 10:38 Resp 18 05/09/21 10:38 BP 126/69 05/09/21 10:38 Pulse Ox 98 05/09/21 10:38 Body Mass Index 34.0 vital signs have been reviewed as normal and appeared to be correct. Blood pressure normal. Heart rate normal. Respiration rate normal. Temperature normal. Oxygen saturation normal. Appearance: Alert. Oriented X3. No acute distress. Eyes: PERRLA. EOMI. ENT: Pharynx normal. Uvula midline. Moist mucous membranes. Back: No CVA tenderness. Full range of motion noted. Skin: Skin warm and dry. Normal skin color. no erythema or rashes noted Extremities: right hand positive tenderness of the 2nd 3rd digit from the palmar aspect distally. Positive capillary refill slight swelling noted. Left hand positive tenderness extending from the palmar aspect of the 3rd digit posi Neuro: Oriented X 3. No motor deficit. No sensory deficit. Reflexes normal. Course Course Course Narrative: Bilateral hand arthritis Overuse injury Hand sprain bilateral hand x-rays pending hand x-ray shows no fractures but some retained foreign bodies in the hand that may causing patient [facility] will recommend follow-up with orthopedics for further evaluat Medical Decision Making Imaging Data hand: Radiologist's impression: [address] [id number] ReportSigned Patient: Antione Lorenzana LMR#: [id number]: [id number]:[id number]/Sex: 36 / MADM Date: 05/09/21Loc: HO.EDAttending Dr: Ordering Physician: Lion Gale Date of Service: 05/09/21 Procedure(s): XR hand LT min 3V Accession Number(s): [id number] cc: Lion Gale EXAMINATION: LEFT HAND AND RIGHT HAND. CLINICAL INFORMATION: Pain all over COMPARISON: None TECHNIQUE: 3 views each hand. FINDINGS: Right hand: There is subchondral lucency seen in the proximal segment mid phalanx second digit. No visible acute fracture, dislocation seen. The joint spaces throughout the right hand maintain normal. The soft tissues are normal. Left hand: There is no visible acute fracture, dislocation. The joint spaces are maintained normal. There is a small radiopaque metallic foreign body adjacent to the ulnar aspect of the rest measuring 3 mm. Otherwise rest of the soft tissues are normal. XR/XR hand LT min 3V IMPRESSION: Subchondral lucency proximal end mid phalanx second digit right hand likely geode. There is no acute fracture or, dislocation or subluxation involving either hands. There is a small radiopaque metallic foreign body along the ulnar aspect of the wrist left hand. Dictated By:DIGNA WAYNE MDSigned By:<Electronically signed by DIGNA WAYNE MD in OV>05/09/21 1126 DD/ 1052TD/TT: [place] [facility] [place] Discharge Clinical Impression: Bilateral hand pain Patient Disposition: Home, Self-Care Additional Instructions: It is recommended you follow-up with orthopedics. x-rays show no broken bones It does appear to have some retained metallic foreign bodies in your hand likely from a prior injury Prescriptions: No Action ibuprofen 600 mg tablet 600 mg PO Q6H PRN (Reason: pain) Qty: 30 RF: 0 doxycycline monohydrate 100 mg capsule 100 mg PO BID Qty: 14 RF: 0 fluticasone propionate [Flonase Allergy Relief] 50 mcg/actuation spray,suspension 1 spray intranasal Q12H Qty: 16 RF: 0 ibuprofen 600 mg tablet 600 mg PO Q6H PRN (Reason: pain) Qty: 20 RF: 0 sumatriptan succinate [Imitrex] 50 mg tablet See Rx Instructions .ROUTE .COMPLEX Qty: 7 RF: 0 tcpequftba-gadicubisnyvf-zkan [Fioricet] 50-300-40 mg capsule 1 cap PO Q6H PRN (Reason: headache) Qty: 20 RF: 0 bjfjsdxmtt-lwzybwebvqiua-iynd [Fioricet] 50-300-40 mg capsule 1 cap PO Q8H PRN (Reason: pain) Qty: 14 RF: 0 doxycycline monohydrate 100 mg capsule 100 mg PO BID 7 Days Qty: 14 RF: 0 Referrals: Kusum Pena MD [Physician] - 2 days
== END 2021-05-09 11:59 | disposition home or self-care (01) ==
PROVIDERS: Emergency Provider Emergency Medicine Emergency Medical Services; PCP Internal Medicine
DX: M79.642 Pain in left hand (principal); M79.641 Pain in right hand
CPT/HCPCS: 73130; 99283

== ENCOUNTER 2021-05-31 09:32 | Emergency (ER) | payer MEDICAID, SELFPAY ==
--- NOTE | ~2021-05-31 | XR_ITS ---
EXAMINATION: XR CHEST CLINICAL INFORMATION: Right-sided chest pain COMPARISON: Chest radiographs 12/27/2020, 09/03/2020 TECHNIQUE: Portable upright AP view of the chest was obtained. FINDINGS: There are low lung volumes. The lungs are clear and there is no airspace consolidation, pneumothorax, pleural reaction, or effusion. The heart is normal in size. The vascularity is normal. The hilar and mediastinal contours and visualized bony structures are unremarkable. XR/XR chest 1V IMPRESSION: Low lung volumes. Lungs clear.
--- NOTE | 2021-05-31 10:04 | ECG_ITS ---
Test Reason : CHEST PAIN Blood Pressure : / mmHG Vent. Rate : 070 BPM Atrial Rate : 070 BPM P-R Int : 162 ms QRS Dur : 088 ms QT Int : 372 ms P-R-T Axes : 048 022 014 degrees QTc Int : 401 ms Normal sinus rhythm Normal ECG When compared to the previous EKG of No significant changes seen Referred By: Aniceto Hyman Electronically Signed By:GARRY GROE MD
--- NOTE | 2021-05-31 10:06 | ED.GENADULT ---
HPI - General Adult General Chief complaint: General Medical Stated complaint: CHEST PAIN POISON LEIDY Time Seen by Provider: 05/31/21 10:00 Source: patient Mode of arrival: ambulatory Limitations: no limitations History of Present Illness HPI narrative: Patient presents to ED for multiple complaints. Patient's 1st complaint is right-sided chest pain is worse on movement past 2 weeks. Patient says he was seen by his PCP but there was no EKG or blood work done. Patient states history of cholesterol. Patient denies any swelling of lower extremity or shortness of breath. Patient's secondary complaint is poison leidy rash on shoulders, face, and behind ears. Patient states yesterday he came contact with poison leidy plants yesterday. Patient denies any swelling of lips, swelling of tongue, or sensation of throat closing. Patient does admit to heavy lifting. Related Data Previous Rx's Medication Instructions Recorded ibuprofen 600 mg PO Q6H PRN #30 tab 09/03/20 doxycycline monohydrate 100 mg PO BID #14 cap 12/27/20 fluticasone propionate [Flonase 1 spray INTRANASAL Q12H #16 g 12/27/20 Allergy Relief] ibuprofen 600 mg PO Q6H PRN #20 tab 12/27/20 fsvabkoztl-txuvtubtufsmn-inhm 1 cap PO Q6H PRN #20 cap 01/23/21 [Fioricet] sumatriptan succinate [Imitrex] See Rx Instructions .ROUTE 01/23/21 .COMPLEX #7 tab hdxhxxxxer-ujqpknwzpyduh-uedy 1 cap PO Q8H PRN #14 cap 01/31/21 [Fioricet] doxycycline monohydrate 100 mg PO BID 7 Days #14 cap 01/31/21 famotidine [Pepcid] 20 mg PO BID 7 Days #14 tab 05/31/21 hydroxyzine HCl 25 mg PO TID PRN #21 tab 05/31/21 prednisone 40 mg PO DAILY 5 Days #10 tab 05/31/21 Allergies Allergy/AdvReac Type Severity Reaction Status Date / Time penicillin V Allergy Unknown rash Verified 05/09/21 10:37 Penicillins [PENICILLINS] Allergy Unknown RASH Verified 05/09/21 10:37 pravastatin Allergy Unknown chest Verified 05/09/21 10:37 pain, constipation Review of Systems Review of Systems: Yes all other systems are reviewed and are negative Constitutional: Constitutional: Reports as per HPI and Reports no additional constitutional complaints Eyes: Eyes: Reports as per HPI and Reports no additional eye complaints ENT: Reports system reviewed and no additional complaints, except as documented and Reports as per HPI Cardiovascular: Cardiovascular: Reports as per HPI, Reports no additional cardiovascular complaints and Reports chest pain (Right-sided chest pain) Respiratory: Respiratory: Reports as per HPI and Reports no additional respiratory complaints Gastrointestinal: Gastrointestinal: Reports as per HPI and Reports no additional gastrointestinal complaints Genitourinary: Genitourinary: Reports no additional male genitourinary complaints and Reports as per HPI Musculoskeletal: Musculoskeletal: Reports no additional musculoskeletal complaints and Reports as per HPI Comments: Poison leidy rash Neurologic: Reports system reviewed and no additional complaints, except as documented and Reports as per HPI FOR[facility]LY [facility], [facility] Past Medical History Medical History Asthma Costochondritis Migraines Sinus congestion Surgical History No significant past surgical history Social History Social History Alcohol intake: never Advance Directives: Yes Advance Directives Information Provided: No Advance Directives on File: No Physical Exam Vital Signs: Vital Signs: Last Vital Signs Temp 98.7 F 05/31/21 11:58 Pulse 59 05/31/21 11:58 Resp 16 05/31/21 11:58 BP 121/72 05/31/21 11:58 Pulse Ox 98 05/31/21 11:58 Body Mass Index 33.5 Const: General: cooperative, healthy appearing, comfortable, no acute distress, well developed, alert and awake Orientation/consciousness: patient oriented x3 HENMT: Head: Yes normal to inspection, Yes No palpable skull fracture present, Yes normocephalic, Yes atraumatic and No abrasion Eyes: General: appearance normal, both eyes and all related structures Neck: Neck: Yes normal visual inspection, Yes full ROM, Yes no lymphadenopathy, Yes no meningeal signs, Yes trachea midline, Yes supple and No tender Chest: Chest/axillae images: 1. Positive for right-sided chest wall tenderness. Resp: Effort & Inspection: normal respiratory effort and able to speak in complete sentences Auscultation: clear to auscultation bilaterally Cardio: Jugular venous distension: no JVD Heart sounds: S1 normal heart sound present and S2 normal heart sound present GI: Inspection: Yes normal to inspection and No abdominal wall ecchymosis Palpation (GI): Soft to palpation, not firm, nontender, no guarding and not rigid : General: No CVA tenderness and Yes no CVA tenderness Back/Spine/Pelvis: Back: no CVA tenderness, No CVA tenderness and No back tenderness Skin: Other: Poison leidy rash on bilateral shoulders, face, behind both ears, Rashes: rashes noted (Dermatitis poison leidy) Neuro: General: patient oriented x3, gait normal, no meningeal signs and CN's II-XI intact bilaterally Extrem: Other: Lower extremity negative for swelling, pitting edema, or calf tenderness General: Yes normal to inspection and Yes full ROM Psych: Appearance: grossly normal, well kempt and not disheveled Course Course Course Narrative: Patient diagnose it is poison leidy. Due to right-sided chest pain and no workup for the past 3 weeks most likely musculoskeletal but will do EKG and blood work. Negative for unilateral rash interest to indicate shingles. Reevaluation(s) Reevaluation #1: EKG normal negative for STEMI. D-dimer and troponin negative after week of right chest wall muscular pain. Awaiting chest x-ray results. Perc score is 0 Time: 10:30 Reevaluation #2: Chest x-ray results normal. Medical Decision Making [facility] Narrative Medical decision making narrative: Poison leidy. Chest wall pain Lab Data Result diagrams: 05/31/21 10:30 05/31/21 10:30 Labs: Lab Results 05/31/21 05/31/21 05/31/21 Range/Units 10:30 10:30 10:30 WBC 6.6 (4.8-10.8) X10*3/uL RBC 4.32 L (4.60-5.80) X10*6/uL Hgb 13.2 L (14.0-18.0) g/dl Hct 38.4 L (42-52) % MCV 88.9 (80-98) fL MCH 30.6 (27.0-33.0) pg MCHC 34.4 (31.0-36.0) g/dl RDW 13.2 (11.0-16.0) % Plt Count 199 (160-400) X10*3/uL MPV 11.4 (9.4-12.4) fL Immature Gran % (Auto) 0.3 (0.0-0.4) % Neut % (Auto) 69.9 (45-73) % Lymph % (Auto) 17.4 L (20-40) % [place] % (Auto) 10.9 (2-11) % Eos % (Auto) 1.2 (0-4) % Baso % (Auto) 0.3 (0-2) % Lymph # (Auto) 1.2 (1.2-4.9) X10*3/uL [place] # (Auto) 0.7 (0.1-1.2) X10*3/uL Eos # (Auto) 0.1 (0.0-0.4) X10*3/uL Baso # (Auto) 0.0 (0.0-0.2) X10*3/uL Abs Immat Gran (auto) 0.02 (0.00-0.03) X10*3/uL Absolute Neuts (auto) 4.6 (2.0-8.3) X10*3/uL Absolute Nucleated RBC 0.000 (0.0-0.012) X10*3/uL Nucleated RBC % (auto) 0.0 (0.0-0.2) /100WBC PT (9.9-13.0) SEC INR (0.9-1.1) APTT (24.1-38.0) SEC D-Dimer < 200 NG/ML Sodium 140 (135-145) mmol/L Potassium 4.0 (3.3-5.1) mmol/L Chloride 110 H (96-108) mmol/L Carbon Dioxide 24 (22-29) mmol/L Anion Gap 10 L (12-20) BUN 18 H (9-16) mg/dL Creatinine 0.92 (0.5-1.4) mg/dL Estim Creat Clear Calc 131.2 Estimated GFR > 60 Random Glucose 124 H (60-115) mg/dL Calcium 9.3 D (8.4-10.2) mg/dL Total Bilirubin 0.4 (0.0-1.0) mg/dL AST 17 (5-37) U/L ALT 22 (0-40) U/L Alkaline Phosphatase 74 (39-117) U/L Troponin I High Sens (<3.5-35.0) ng/L Total Protein 6.7 (6.5-8.0) g/dL Albumin 4.1 (3.5-5.0) g/dL 05/31/21 05/31/21 Range/Units 10:30 10:31 WBC (4.8-10.8) X10*3/uL RBC (4.60-5.80) X10*6/uL Hgb (14.0-18.0) g/dl Hct (42-52) % MCV (80-98) fL MCH (27.0-33.0) pg MCHC (31.0-36.0) g/dl RDW (11.0-16.0) % Plt Count (160-400) X10*3/uL MPV (9.4-12.4) fL Immature Gran % (Auto) (0.0-0.4) % Neut % (Auto) (45-73) % Lymph % (Auto) (20-40) % [place] % (Auto) (2-11) % Eos % (Auto) (0-4) % Baso % (Auto) (0-2) % Lymph # (Auto) (1.2-4.9) X10*3/uL [place] # (Auto) (0.1-1.2) X10*3/uL Eos # (Auto) (0.0-0.4) X10*3/uL Baso # (Auto) (0.0-0.2) X10*3/uL Abs Immat Gran (auto) (0.00-0.03) X10*3/uL Absolute Neuts (auto) (2.0-8.3) X10*3/uL Absolute Nucleated RBC (0.0-0.012) X10*3/uL Nucleated RBC % (auto) (0.0-0.2) /100WBC PT 11.5 (9.9-13.0) SEC INR 1.0 (0.9-1.1) APTT 37.3 (24.1-38.0) SEC D-Dimer NG/ML Sodium (135-145) mmol/L Potassium (3.3-5.1) mmol/L Chloride (96-108) mmol/L Carbon Dioxide (22-29) mmol/L Anion Gap (12-20) BUN (9-16) mg/dL Creatinine (0.5-1.4) mg/dL Estim Creat Clear Calc Estimated GFR Random Glucose (60-115) mg/dL Calcium (8.4-10.2) mg/dL Total Bilirubin (0.0-1.0) mg/dL AST (5-37) U/L ALT (0-40) U/L Alkaline Phosphatase (39-117) U/L Troponin I High Sens 4.6 (<3.5-35.0) ng/L Total Protein (6.5-8.0) g/dL Albumin (3.5-5.0) g/dL ECG Data Interpretation: Normal sinus rhythm. Normal EKG. Ventricular rate 70. Parents of 162. QRS 88. QTC 401. Negative STEMI Discharge Plan Discharge Clinical Impression: Poison leidy dermatitis, Chest wall pain Patient Disposition: Home, Self-Care Instructions: Poison Leidy (ED), Chest Wall Pain (ED) Additional Instructions: Get EKG and troponin came back negative for heart attack. Your D-dimer came back negative for risk of blood clot. Chest x-ray came back normal. Rest of blood work came back normal. Your diagnosis is for his NIV and muscular chest wall pain. Motrin can be used for chest wall pain. You will be discharged with steroids, Pepcid, and Atarax for poison leidy. Follow-up with PCP Prescriptions: New prednisone 20 mg tablet 40 mg PO DAILY 5 Days Qty: 10 RF: 0 famotidine [Pepcid] 20 mg tablet 20 mg PO BID 7 Days Qty: 14 RF: 0 hydroxyzine HCl 25 mg tablet 25 mg PO TID PRN (Reason: itching) Qty: 21 RF: 0 No Action ibuprofen 600 mg tablet 600 mg PO Q6H PRN (Reason: pain) Qty: 30 RF: 0 doxycycline monohydrate 100 mg capsule 100 mg PO BID Qty: 14 RF: 0 fluticasone propionate [Flonase Allergy Relief] 50 mcg/actuation spray,suspension 1 spray intranasal Q12H Qty: 16 RF: 0 ibuprofen 600 mg tablet 600 mg PO Q6H PRN (Reason: pain) Qty: 20 RF: 0 sumatriptan succinate [Imitrex] 50 mg tablet See Rx Instructions .ROUTE .COMPLEX Qty: 7 RF: 0 qyfbtnnvaw-nmokoukpbhdzo-urmk [Fioricet] 50-300-40 mg capsule 1 cap PO Q6H PRN (Reason: headache) Qty: 20 RF: 0 fitvdtkgfz-ldtvlihhqlzuf-hziw [Fioricet] 50-300-40 mg capsule 1 cap PO Q8H PRN (Reason: pain) Qty: 14 RF: 0 doxycycline monohydrate 100 mg capsule 100 mg PO BID 7 Days Qty: 14 RF: 0 Stand Alone Forms: Work/School Release Interventions: ED Discharge Assessment Last Done: 05/31/21 12:03 Discharge Date/Time: 05/31/21 12:08 Print Language: Italian
[2021-05-31 10:08] VITALS: BP 128/69; PULSE 77; RESP 16; TEMP 36.3; O2SAT 98; BMI 33.5
[2021-05-31] MEDS: predniSONE 20 MG TABLET 60 MG PO (10:19)
[2021-05-31] MEDS: Famotidine 20 MG TABLET PO (10:19)
[2021-05-31] MEDS: hydrOXYzine HCL 50 MG TABLET PO (10:19)
[2021-05-31 10:40] LABS: MANUAL DIFF FLAG NO
[2021-05-31 10:43] LABS: Basophils Percent Auto 0.3 % (0-2); Eosinophils Absolute Auto 0.1 X10*3/uL (0.0-0.4); Eosinophils Percent Auto 1.2 % (0-4); Hematocrit 38.4 % (42-52); Hemoglobin 13.2 g/dl (14.0-18.0); Imm Gran Abs Auto 0.02 X10*3/uL (0.00-0.03); Imm Gran Pct Auto 0.3 % (0.0-0.4); Lymphocytes Absolute Auto 1.2 X10*3/uL (1.2-4.9); Lymphocytes Percent Auto 17.4 % (20-40); Mean Corpuscular HGB Conc 34.4 g/dl (31.0-36.0); Mean Corpuscular Hemoglobin 30.6 pg (27.0-33.0); Mean Corpuscular Volume 88.9 fL (80-98); Mean Platelet Volume 11.4 fL (9.4-12.4); Monocytes Absolute Auto 0.7 X10*3/uL (0.1-1.2); Monocytes Percent Auto 10.9 % (2-11); Neutrophils Absolute Auto 4.6 X10*3/uL (2.0-8.3); Neutrophils Percent Auto 69.9 % (45-73); Platelet Count 199 X10*3/uL (160-400); Red Blood Count 4.32 X10*6/uL (4.60-5.80); Red Cell Distribution Width 13.2 % (11.0-16.0); White Blood Count 6.6 X10*3/uL (4.8-10.8)
[2021-05-31 10:49] LABS: Prothrombin Time 11.5 SEC (9.9-13.0)
[2021-05-31 10:52] LABS: Partial Thromboplastin Time 37.3 SEC (24.1-38.0)
[2021-05-31 10:54] LABS: D Dimer < 200 NG/ML
[2021-05-31 11:11] LABS: Alanine Aminotransferase 22 U/L (0-40); Albumin Level 4.1 g/dL (3.5-5.0); Alkaline Phosphatase 74 U/L (39-117); Anion Gap 10 (12-20); Aspartate Amino Transferase 17 U/L (5-37); Bilirubin Total 0.4 mg/dL (0.0-1.0); Blood Urea Nitrogen 18 mg/dL (9-16); Calcium 9.3 mg/dL (8.4-10.2); Carbon Dioxide 24 mmol/L (22-29); Chloride 110 mmol/L (96-108); Creatinine Clr Calc Pharmacy 131.2; Estimated Glomerular Filt Rate > 60; Glucose Random 124 mg/dL (60-115); Sodium 140 mmol/L (135-145); Total Protein 6.7 g/dL (6.5-8.0)
[2021-05-31 11:13] LABS: Troponin-I High Sensitivity 4.6 ng/L (<3.5-35.0)
[2021-05-31 11:58] VITALS: BP 121/72; PULSE 59; RESP 16; TEMP 37.1; O2SAT 98
== END 2021-05-31 12:08 | disposition home or self-care (01) ==
PROVIDERS: Physician Assistant; Emergency Provider Emergency Medicine Emergency Medical Services
DX: L23.7 Allergic contact dermatitis due to plants, except food (principal); R07.89 Other chest pain; Z79.899 Other long term (current) drug therapy
CPT/HCPCS: 36415; 71045; 80053; 84484; 85025; 85379; 85610; 85730; 93005; 99284

== ENCOUNTER 2021-07-11 13:49 | Emergency (ER) | payer MEDICAID, SELFPAY ==
--- NOTE | 2021-07-11 | ECG_ITS ---
Test Reason : CHEST PAIN Blood Pressure : / mmHG Vent. Rate : 096 BPM Atrial Rate : 096 BPM P-R Int : 150 ms QRS Dur : 086 ms QT Int : 332 ms P-R-T Axes : 058 015 014 degrees QTc Int : 419 ms Normal sinus rhythm Normal ECG When compared with ECG of 31-MAY-2021 10:18, No significant change was found Referred By: Adam Veloz Electronically Signed By:PAGE CULVER
[2021-07-11 13:53] VITALS: BP 145/85; PULSE 97; RESP 18; TEMP 36.8; O2SAT 98; BMI 32.7
[2021-07-11 16:00] VITALS: BP 120/65; PULSE 62; RESP 16; TEMP 36.9; O2SAT 98
--- NOTE | 2021-07-11 16:03 | ED.CHESTPAIN ---
HPI - Chest Pain General Chief Complaint: Chest Pain Stated Complaint: chest pain Time Seen by Provider: 07/11/21 15:46 Source: patient Mode of arrival: ambulatory Limitations: no limitations History of Present Illness HPI narrative: 36-year-old male who presents emergency department for evaluation of chest pain and headache. 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 when he had a sudden onset of right-sided chest pain. Points to his right anterior chest when asked to localize the pain. The pain is a sharp pain which is intermittent will last 30 minutes and then returned. States the pain is 8/10 at its worst. The pain does radiate to his right shoulder. He has associated nausea and dizziness. The patient states that he has had similar pain in the past and has had several visits the emergency department for similar pain. Patient also has a history of migraine headache. He states that he is currently having a migraine headache. The headache is located on the left side of his head, the pain is a constant, throbbing sensation which is 10/10 at its worst, the headaches associated with dizziness nausea but no vomiting. He denies numbness or weakness. Patient denied fever, chills, shortness of breath, dyspnea on exertion, pleuritic pain, abdominal pain, pain or swelling in his lower extremities. Related Data Previous Rx's Medication Instructions Recorded ibuprofen 600 mg tablet 600 mg PO Q6H PRN #30 tab 09/03/20 doxycycline monohydrate 100 mg 100 mg PO BID #14 cap 12/27/20 capsule fluticasone propionate 50 1 spray INTRANASAL Q12H #16 g 12/27/20 mcg/actuation nasal spray,suspension (Flonase Allergy Relief) ibuprofen 600 mg tablet 600 mg PO Q6H PRN #20 tab 12/27/20 ojbibnbrae-tlsmlifccsbiy-qdatdzil 1 cap PO Q6H PRN #20 cap 01/23/21 50 mg-300 mg-40 mg capsule (Fioricet) sumatriptan succinate 50 mg tablet See Rx Instructions .ROUTE 01/23/21 (Imitrex) .COMPLEX #7 tab pkkzczcjtz-ovfrqbkgfuctj-fuekudmd 1 cap PO Q8H PRN #14 cap 01/31/21 50 mg-300 mg-40 mg capsule (Fioricet) doxycycline monohydrate 100 mg 100 mg PO BID 7 Days #14 cap 01/31/21 capsule famotidine 20 mg tablet (Pepcid) 20 mg PO BID 7 Days #14 tab 05/31/21 hydroxyzine HCl 25 mg tablet 25 mg PO TID PRN #21 tab 05/31/21 prednisone 20 mg tablet 40 mg PO DAILY 5 Days #10 tab 05/31/21 metoclopramide HCl 10 mg tablet 10 mg PO Q6H PRN #14 tab 07/11/21 (Reglan) Allergies Allergy/AdvReac Type Severity Reaction Status Date / Time penicillin V Allergy Unknown rash Verified 07/11/21 13:53 Penicillins [PENICILLINS] Allergy Unknown RASH Verified 07/11/21 13:53 pravastatin Allergy Unknown chest Verified 07/11/21 13:53 pain, constipation Review of Systems Review of Systems: Yes all other systems are reviewed and are negative [facility] Past Medical History [facility] Narrative: Social history: The patient denies tobacco use. He denies alcohol use. He denies drug use. Medical History Asthma Costochondritis Migraines Sinus congestion Surgical History No significant past surgical history Social History Social History Alcohol intake: never Advance Directives: No Advance Directives Information Provided: No Physical Exam Vital Signs: Vital Signs: Last Vital Signs Temp 98.3 F 07/11/21 13:53 Pulse 97 07/11/21 13:53 Resp 18 07/11/21 13:53 BP 145/85 H 07/11/21 13:53 Pulse Ox 98 07/11/21 13:53 Body Mass Index 32.7 Const: General: cooperative and no acute distress Orientation/consciousness: oriented to person and oriented to place Limitations: no limitations HENMT: Head: Yes normal to inspection, Yes normocephalic and Yes atraumatic Ears: external ears normal General nose exam: Normal external nose present Face and sinus: Yes normal facial exam Mouth: Normal oral and palatal mucosa present Throat: Yes posterior oropharynx normal Eyes: General: appearance normal, both eyes and all related structures Pupils: Equal, round and reactive pupils present Neck: Neck: Yes normal visual inspection, Yes no lymphadenopathy, Yes trachea midline and Yes supple Chest: Chest palpation & inspection: normal inspection of the chest and tenderness (Left anterior chest, moderate tenderness) Resp: Effort & Inspection: normal respiratory effort and able to speak in complete sentences Auscultation: clear to auscultation bilaterally Cardio: Rate: regular rate Rhythm: regular rhythm Heart sounds: S1 normal heart sound present, S2 normal heart sound present and no murmurs GI: Inspection: Yes normal to inspection Palpation (GI): Soft to palpation, nontender and no guarding Auscultation: normal bowel sounds : General: Yes no CVA tenderness Back/Spine/Pelvis: Back: no CVA tenderness Skin: General skin exam: no rashes or lesions noted Neuro: General: oriented to person and oriented to place Cranial nerves: Yes CN's II-XII intact bilaterally and Yes Equal, round and reactive pupils present Cognition (Neuro): normal cognition Motor exam (neuro): 5/5 motor strength present throughout Extrem: General: Yes normal to inspection Psych: Appearance: grossly normal Speech and movement: Normal speech and movement present Affect: normal affect Attitude: cooperative Thought process: Normal thought process present Thought content: Normal thought content present Course Course Course Narrative: 36-year-old male who presents emergency department for evaluation of right-sided chest pain which began this morning around 11:00 a.m. when he was emptying trash. The patient has had similar pain in the past. The pain has been intermittent will last 30 minutes he has had all day. Patient is also complaining of a left-sided migraine-like headache. Vital signs were normal. The patient's physical exam revealed right-sided chest wall tenderness otherwise was unremarkable. Laboratory evaluation and EKG were ordered. Patient's chest pain and headache will be treated with Reglan 10 mg IV, Benadryl 50 mg IV and Toradol 30 mg IV. He was also ordered to get normal saline IV x1 L. 1823: The patient's laboratory evaluation [place] [id number] otherwise was unremarkable. The patient's high sensitivity troponin was detectable at 6.4 but not elevated, given the patient's presentation I do not think the patient's pain is secondary to myocardial injury and is more consistent with musculoskeletal/costochondritis pain. The patient did get complete relief of his chest pain and migraine with the above medications. The patient will be started on a migraine regimen of Reglan, Benadryl and Excedrin migraine. He was also advised to take ibuprofen for his chest pain. The patient was discharged home. The patient was given verbal and printed instructions prior to discharge. The patient was advised to follow-up with his PCP in 2 days and to return to the emergency department if his symptoms get worse or if he develops any new symptoms that are concerning to him. MDM - Chest Pain Lab Data Result diagrams: 07/11/21 16:21 07/11/21 16:21 Labs: Lab Results 07/11/21 07/11/21 07/11/21 Range/Units 16:21 16:21 16:21 WBC 12.2 H (4.8-10.8) X10*3/uL RBC 4.66 (4.60-5.80) X10*6/uL Hgb 14.1 (14.0-18.0) g/dl Hct 41.0 L (42-52) % MCV 88.0 (80-98) fL MCH 30.3 (27.0-33.0) pg MCHC 34.4 (31.0-36.0) g/dl RDW 13.1 (11.0-16.0) % Plt Count 255 D (160-400) X10*3/uL MPV 11.0 (9.4-12.4) fL Immature Gran % (Auto) 0.3 (0.0-0.4) % Neut % (Auto) 76.5 H (45-73) % Lymph % (Auto) 14.6 L (20-40) % [place] % (Auto) 8.1 (2-11) % Eos % (Auto) 0.3 (0-4) % Baso % (Auto) 0.2 (0-2) % Lymph # (Auto) 1.8 (1.2-4.9) X10*3/uL [place] # (Auto) 1.0 (0.1-1.2) X10*3/uL Eos # (Auto) 0.0 (0.0-0.4) X10*3/uL Baso # (Auto) 0.0 (0.0-0.2) X10*3/uL Abs Immat Gran (auto) 0.04 H (0.00-0.03) X10*3/uL Absolute Neuts (auto) 9.3 H (2.0-8.3) X10*3/uL Absolute Nucleated RBC 0.000 (0.0-0.012) X10*3/uL Nucleated RBC % (auto) 0.0 (0.0-0.2) /100WBC Sodium 141 (135-145) mmol/L Potassium 4.2 (3.3-5.1) mmol/L Chloride 111 H (96-108) mmol/L Carbon Dioxide 24 (22-29) mmol/L Anion Gap 10 L (12-20) BUN 18 H (9-16) mg/dL Creatinine 0.84 (0.5-1.4) mg/dL Estim Creat Clear Calc 142.0 Estimated GFR > 60 Random Glucose 86 (60-115) mg/dL Calcium 9.6 (8.4-10.2) mg/dL Total Bilirubin 0.4 (0.0-1.0) mg/dL AST 21 (5-37) U/L ALT 30 (0-40) U/L Alkaline Phosphatase 79 (39-117) U/L Troponin I High Sens 6.4 (<3.5-35.0) ng/L Total Protein 7.5 (6.5-8.0) g/dL Albumin 4.7 (3.5-5.0) g/dL Discharge Plan Discharge Clinical Impression: Costalchondritis, Migraine Patient Disposition: Home, Self-Care Instructions: Costochondritis (ED), Acute Headache (ED) Additional Instructions: Your laboratory evaluation was unremarkable, your EKG was normal and your chest x-ray was normal. Your chest pain is consistent with inflammation of the muscles and joints of your chest (costochondritis) Take ibuprofen 200 mg pills, 3 pills every 6 hours as needed for your chest pain. Your headache is consistent with your migraine syndrome. I want you to take the following 3 medications together every 6 hours as needed for headache, nausea or vomiting. Reglan (metoclopramide) in 10 mg, 1 pill Benadryl 25 mg, 2 pills Excedrin migraine, 2 pills. After you take these medications, lie down in a dark quiet room and try to fall asleep. These medications will make you sleepy, do not drive or work after taking these medications. Follow-up with your doctor in 2 days. Please return to the emergency department if your symptoms get worse or if you develop any symptoms that are concerning to you. Prescriptions: New metoclopramide HCl [Reglan] 10 mg tablet 10 mg PO Q6H PRN (Reason: nausea and vomiting) Qty: 14 RF: 0 No Action ibuprofen 600 mg tablet 600 mg PO Q6H PRN (Reason: pain) Qty: 30 RF: 0 doxycycline monohydrate 100 mg capsule 100 mg PO BID Qty: 14 RF: 0 fluticasone propionate [Flonase Allergy Relief] 50 mcg/actuation spray,suspension 1 spray intranasal Q12H Qty: 16 RF: 0 ibuprofen 600 mg tablet 600 mg PO Q6H PRN (Reason: pain) Qty: 20 RF: 0 sumatriptan succinate [Imitrex] 50 mg tablet See Rx Instructions .ROUTE .COMPLEX Qty: 7 RF: 0 kscpgopbvz-taoiecvzbpibz-pnky [Fioricet] 50-300-40 mg capsule 1 cap PO Q6H PRN (Reason: headache) Qty: 20 RF: 0 sdxepxfwaq-qhwcrryczvccn-imwp [Fioricet] 50-300-40 mg capsule 1 cap PO Q8H PRN (Reason: pain) Qty: 14 RF: 0 doxycycline monohydrate 100 mg capsule 100 mg PO BID 7 Days Qty: 14 RF: 0 prednisone 20 mg tablet 40 mg PO DAILY 5 Days Qty: 10 RF: 0 famotidine [Pepcid] 20 mg tablet 20 mg PO BID 7 Days Qty: 14 RF: 0 hydroxyzine HCl 25 mg tablet 25 mg PO TID PRN (Reason: itching) Qty: 21 RF: 0 Stand Alone Forms: Work/School Release
[2021-07-11 16:25] LABS: MANUAL DIFF FLAG NO
[2021-07-11 16:27] LABS: Basophils Percent Auto 0.2 % (0-2); Eosinophils Percent Auto 0.3 % (0-4); Hemoglobin 14.1 g/dl (14.0-18.0); Imm Gran Abs Auto 0.04 X10*3/uL (0.00-0.03); Imm Gran Pct Auto 0.3 % (0.0-0.4); Lymphocytes Absolute Auto 1.8 X10*3/uL (1.2-4.9); Lymphocytes Percent Auto 14.6 % (20-40); Mean Corpuscular HGB Conc 34.4 g/dl (31.0-36.0); Mean Corpuscular Hemoglobin 30.3 pg (27.0-33.0); Monocytes Percent Auto 8.1 % (2-11); Neutrophils Absolute Auto 9.3 X10*3/uL (2.0-8.3); Neutrophils Percent Auto 76.5 % (45-73); Platelet Count 255 X10*3/uL (160-400); Red Blood Count 4.66 X10*6/uL (4.60-5.80); Red Cell Distribution Width 13.1 % (11.0-16.0); White Blood Count 12.2 X10*3/uL (4.8-10.8)
[2021-07-11] MEDS: 0.9 % Sodium Chloride 1,000 ML 999 ML IV (16:35)
[2021-07-11] MEDS: Ketorolac Tromethamine 15 MG/ML VIAL 30 MG IVPUSH (16:35)
[2021-07-11] MEDS: diphenhydrAMINE HCL 50 MG/ML VIAL IVPUSH (16:35)
[2021-07-11] MEDS: Metoclopramide HCl 10 MG/2 ML VIAL IVPUSH (16:36)
[2021-07-11 16:48] LABS: Alanine Aminotransferase 30 U/L (0-40); Albumin Level 4.7 g/dL (3.5-5.0); Alkaline Phosphatase 79 U/L (39-117); Anion Gap 10 (12-20); Aspartate Amino Transferase 21 U/L (5-37); Bilirubin Total 0.4 mg/dL (0.0-1.0); Blood Urea Nitrogen 18 mg/dL (9-16); Calcium 9.6 mg/dL (8.4-10.2); Carbon Dioxide 24 mmol/L (22-29); Chloride 111 mmol/L (96-108); Estimated Glomerular Filt Rate > 60; Glucose Random 86 mg/dL (60-115); Potassium 4.2 mmol/L (3.3-5.1); Sodium 141 mmol/L (135-145); Total Protein 7.5 g/dL (6.5-8.0); Troponin-I High Sensitivity 6.4 ng/L (<3.5-35.0)
[2021-07-11 18:45] VITALS: BP 117/71; PULSE 73; RESP 16; TEMP 36.6; O2SAT 98
== END 2021-07-11 19:08 | disposition home or self-care (01) ==
PROVIDERS: Emergency Provider Emergency Medicine Emergency Medical Services
DX: M94.0 Chondrocostal junction syndrome [Tietze] (principal); G43.909 Migraine, unspecified, not intractable, without status migrainosus; Z79.899 Other long term (current) drug therapy
CPT/HCPCS: 36415; 80053; 84484; 85025; 93005; 96361; 96374; 96375; 99284; J1200; J1885; J2765

== ENCOUNTER 2021-12-11 12:12 | Emergency (ER) | payer OTHER, SELFPAY ==
[2021-12-11 12:15] VITALS: BP 137/80; PULSE 96; RESP 16; TEMP 37.1; O2SAT 97; BMI 32.5
--- NOTE | 2021-12-11 12:53 | ED_ITS ---
HPI - Head Injury General Chief complaint: Head Injury Stated complaint: Head inj/work inj Time Seen by Provider: 12/11/21 12:45 Source: patient History of Present Illness HPI Narrative: Patient states he was moving a refrigerator 20 got stuck in a hallway. He went to pull it and it suddenly broke loose and hit him in the left side of his head. No loss of consciousness. Patient states we saw the blood got nauseous but those symptoms resolved. He complains of pain on the left side of his head where the injury occurred. No vision changes. No weakness numbness or paresthesias. No medical history. He takes no medications or blood thinners. Bleeding controlled prior to arrival Related Data Previous Rx's Medication Instructions Recorded ibuprofen 600 mg tablet 600 mg PO Q6H PRN #30 tab 09/03/20 doxycycline monohydrate 100 mg 100 mg PO BID #14 cap 12/27/20 capsule fluticasone propionate 50 1 spray INTRANASAL Q12H #16 g 12/27/20 mcg/actuation nasal spray,suspension (Flonase Allergy Relief) ibuprofen 600 mg tablet 600 mg PO Q6H PRN #20 tab 12/27/20 nkoydisnzu-dordccgfnhtbi-osgrzpnb 1 cap PO Q6H PRN #20 cap 01/23/21 50 mg-300 mg-40 mg capsule (Fioricet) sumatriptan succinate 50 mg tablet See Rx Instructions .ROUTE 01/23/21 (Imitrex) .COMPLEX #7 tab wxdwicfrxt-ylrlxjjcwarck-dsnbucdq 1 cap PO Q8H PRN #14 cap 01/31/21 50 mg-300 mg-40 mg capsule (Fioricet) doxycycline monohydrate 100 mg 100 mg PO BID 7 Days #14 cap 01/31/21 capsule famotidine 20 mg tablet (Pepcid) 20 mg PO BID 7 Days #14 tab 05/31/21 hydroxyzine HCl 25 mg tablet 25 mg PO TID PRN #21 tab 05/31/21 prednisone 20 mg tablet 40 mg PO DAILY 5 Days #10 tab 05/31/21 metoclopramide HCl 10 mg tablet 10 mg PO Q6H PRN #14 tab 07/11/21 (Reglan) Allergies Allergy/AdvReac Type Severity Reaction Status Date / Time penicillin V Allergy Unknown rash Verified 07/11/21 13:53 Penicillins Allergy Unknown RASH Verified 07/11/21 13:53 [PENICILLINS] pravastatin Allergy Unknown chest Verified 07/11/21 13:53 pain, constipation Review of Systems Verdana 4l Constitutional: Verdana 4d Comments: Verdana 4d Verdana 4d Verdana 4d No weakness Verdana 4d Verdana 4l Eyes: Verdana 4d Verdana 4d Comments: Verdana 4d Verdana 4d No vision changes Verdana 4d Verdana 4l ENT: Verdana 4d Verdana 4d Comments: Verdana 4d Verdana 4d Left-sided scalp laceration Verdana 4d Verdana 4l Cardiovascular: Verdana 4d Comments: Verdana 4d Verdana 4d Verdana 4d No chest pain or palpitations Verdana 4d Verdana 4l Gastrointestinal: Verdana 4d Comments: Verdana 4d Verdana 4d Verdana 4d Nausea which has resolved Verdana 4d Verdana 4l Musculoskeletal: Verdana 4d Comments: Verdana 4d Verdana 4d Verdana 4d No neck pain Verdana 4d Verdana 4l Integumentary/Breasts: Verdana 4d Comments: Verdana 4d Verdana 4d Verdana 4d Scalp laceration Verdana 4d [facility] Past Medical History Medical History Asthma Costochondritis Migraines Sinus congestion Surgical History No significant past surgical history Social History Social History Alcohol intake: never Advance Directives: No Advance Directives Information Provided: Yes Physical Exam Verdana 4l Vital Signs: Verdana 4d Verdana 4d Vital Signs: Verdana 4d Verdana 4Bd Last Vital Signs Verdana 4d [employer] New 4d [employer] New 4d Temp 98.7 F 12/11/21 12:15 [employer]st New 4d Pulse 96 12/11/21 12:15 [employer] New 4d Resp 16 12/11/21 12:15 BP 137/80 12/11/21 12:15 Pulse Ox 97 12/11/21 12:15 BMI result Body Mass Index 32.5 Const: Other: Awake and alert in no acute distress HENMT: Other: 1.5 cm laceration left parietal scalp. Fairly well approximated. No active bleeding. Eyes: Other: Pupils equal round reactive to light and extraocular muscles intact Neck: Other: Nontender full range of motion Resp: Other: No respiratory distress Skin: Other: Warm pink and dry. Laceration as mentioned above Neuro: Other: Awake and alert in no acute distress. Ambulates without difficulty. Course Course Course Narrative: Left sided parietal scalp laceration. No evidence of intracranial hemorrhage. Possible mild concussion given transient nausea. Given complete resolution of symptoms and otherwise healthy 36-year-old, imaging not indicated. Procedures Laceration Laceration 1: Site: scalp Size (cm): 1.5 Description: linear Depth: simple, single layer Local Anesthetic: lidocaine 1% Amount of anesthesia used (mL): 5 Pre-repair: wound explored, irrigated extensively and deep structures intact Skin layer closed with: other (Surgical saira. Total of 3. Good resulting good hemostasis with good wound approximation) Discharge Plan Discharge Clinical Impression: Laceration of scalp Patient Disposition: Home, Self-Care Instructions: Laceration (DC), Staple Care (ED) Additional Instructions: Saira need to be removed in 7 days. Tylenol or ibuprofen for discomfort. Prescriptions: No Action ibuprofen 600 mg tablet 600 mg PO Q6H PRN (Reason: pain) Qty: 30 0RF doxycycline monohydrate 100 mg capsule 100 mg PO BID Qty: 14 0RF fluticasone propionate [Flonase Allergy Relief] 50 mcg/actuation spray,suspension 1 spray intranasal Q12H Qty: 16 0RF Rx Instructions: administer into each nostril ibuprofen 600 mg tablet 600 mg PO Q6H PRN (Reason: pain) Qty: 20 0RF metoclopramide HCl [Reglan] 10 mg tablet 10 mg PO Q6H PRN (Reason: nausea and vomiting) Qty: 14 0RF sumatriptan succinate [Imitrex] 50 mg tablet See Rx Instructions .ROUTE .COMPLEX Qty: 7 0RF Rx Instructions: take 1 tab at onset of headache; if no relief may repeat 1 tab after at least 2 hrs; max = 2 tabs/24 hr wlgakihdqm-wvtjobrcbrvon-kwfq [Fioricet] 50-300-40 mg capsule 1 cap PO Q6H PRN (Reason: headache) Qty: 20 0RF wbvuwusvsq-yrlhlinmbrymz-abta [Fioricet] 50-300-40 mg capsule 1 cap PO Q8H PRN (Reason: pain) Qty: 14 0RF doxycycline monohydrate 100 mg capsule 100 mg PO BID 7 Days Qty: 14 0RF prednisone 20 mg tablet 40 mg PO DAILY 5 Days Qty: 10 0RF famotidine [Pepcid] 20 mg tablet 20 mg PO BID 7 Days Qty: 14 0RF hydroxyzine HCl 25 mg tablet 25 mg PO TID PRN (Reason: itching) Qty: 21 0RF
[2021-12-11] MEDS: Diphth,Pertus(ACell),Tet Adult 0.5 ML SYRINGE IM (13:08)
[2021-12-11] MEDS: Lidocaine HCl 1 % 20 ML VIAL 5 ML INFILTRATI (13:08)
== END 2021-12-11 13:16 | disposition home or self-care (01) ==
PROVIDERS: Emergency Provider Emergency Medicine
DX: S01.01XA Laceration without foreign body of scalp, initial encounter (principal); G44.309 Post-traumatic headache, unspecified, not intractable; W26.9XXA Contact with unspecified sharp object(s), initial encounter; Y93.9 Activity, unspecified; Y92.009 Unspecified place in unspecified non-institutional (private) residence as the place of occurrence of the external cause; Y99.9 Unspecified external cause status; Z79.899 Other long term (current) drug therapy
CPT/HCPCS: 12001; 90471; 90715; 99283; 99284

== ENCOUNTER 2022-02-04 10:55 | Emergency (ER) | payer MEDICAID, SELFPAY ==
--- NOTE | 2022-02-04 12:14 | ECG_ITS ---
Test Reason : CHEST PAIN Blood Pressure : / mmHG Vent. Rate : 072 BPM Atrial Rate : 072 BPM P-R Int : 150 ms QRS Dur : 088 ms QT Int : 370 ms P-R-T Axes : 065 018 014 degrees QTc Int : 405 ms Normal sinus rhythm Normal ECG When compared with ECG of 11-JUL-2021 13:57, No significant change was found Referred By: Kay Monroe Electronically Signed By:MAREN MARTE
[2022-02-04 12:30] VITALS: BP 124/77; PULSE 70; RESP 16; TEMP 37.4; O2SAT 96; BMI 31.5
--- NOTE | 2022-02-04 12:50 | ED.CHESTPAIN ---
HPI - Chest Pain General Chief Complaint: Chest Pain Stated Complaint: chest pains/abd pain Time Seen by Provider: 02/04/22 12:08 Source: patient Mode of arrival: ambulatory Limitations: no limitations History of Present Illness HPI narrative: 36 yold male presents to the ED for epigastric pain and diarrhea 5 times a day for 5 days. patient states no chest pain, shortness of breath, coughing, fever, or chills. Patient's daughers has viral symptosms Related Data Previous Rx's Medication Instructions Recorded ibuprofen 600 mg tablet 600 mg PO Q6H PRN #30 tab 09/03/20 doxycycline monohydrate 100 mg 100 mg PO BID #14 cap 12/27/20 capsule fluticasone propionate 50 1 spray INTRANASAL Q12H #16 g 12/27/20 mcg/actuation nasal spray,suspension (Flonase Allergy Relief) ibuprofen 600 mg tablet 600 mg PO Q6H PRN #20 tab 12/27/20 vqivwvbxwx-tfzeteekntlin-qilsgkbd 1 cap PO Q6H PRN #20 cap 01/23/21 50 mg-300 mg-40 mg capsule (Fioricet) sumatriptan succinate 50 mg tablet See Rx Instructions .ROUTE 01/23/21 (Imitrex) .COMPLEX #7 tab rjxxakazud-makijlbcvqvia-czcrcxlw 1 cap PO Q8H PRN #14 cap 01/31/21 50 mg-300 mg-40 mg capsule (Fioricet) doxycycline monohydrate 100 mg 100 mg PO BID 7 Days #14 cap 01/31/21 capsule famotidine 20 mg tablet (Pepcid) 20 mg PO BID 7 Days #14 tab 05/31/21 hydroxyzine HCl 25 mg tablet 25 mg PO TID PRN #21 tab 05/31/21 prednisone 20 mg tablet 40 mg PO DAILY 5 Days #10 tab 05/31/21 metoclopramide HCl 10 mg tablet 10 mg PO Q6H PRN #14 tab 07/11/21 (Reglan) Allergies Allergy/AdvReac Type Severity Reaction Status Date / Time penicillin V Allergy Unknown rash Verified 07/11/21 13:53 Penicillins [PENICILLINS] Allergy Unknown RASH Verified 07/11/21 13:53 pravastatin Allergy Unknown chest Verified 07/11/21 13:53 pain, constipation Review of Systems Review of Systems: Abdominal pain epigastric and diarrhea. Yes all other systems are reviewed and are negative [facility] Past Medical History Medical History Asthma Costochondritis Migraines Sinus congestion Surgical History No significant past surgical history Social History Social History Alcohol intake: never Advance Directives: No Advance Directives Information Provided: No Physical Exam Vital Signs: Vital Signs: Last Vital Signs Temp 99.3 F 02/04/22 12:30 Pulse 70 02/04/22 12:30 Resp 16 02/04/22 12:30 BP 124/77 02/04/22 12:30 Pulse Ox 96 02/04/22 12:30 BMI result Body Mass Index 31.5 Const: General: cooperative, healthy appearing, comfortable, no acute distress, well developed, alert, awake and Physically active Orientation/consciousness: patient oriented x3 HEENT: Head: Yes normal to inspection, Yes No palpable skull fracture present, Yes normocephalic, Yes atraumatic and No abrasion Eyes: General: appearance normal, both eyes and all related structures Neck: Neck: Yes normal visual inspection, Yes full ROM, Yes no lymphadenopathy, Yes no meningeal signs, Yes trachea midline, Yes supple, No anterior neck swelling and No tender Chest: Chest palpation & inspection: normal inspection of the chest and normal palpation of entire chest wall Resp: Effort & Inspection: normal respiratory effort and able to speak in complete sentences Auscultation: clear to auscultation bilaterally Cardio: Jugular venous distension: no JVD Heart sounds: S1 normal heart sound present and S2 normal heart sound present GI: Inspection: Yes normal to inspection and No abdominal wall ecchymosis Palpation (GI): Soft to palpation, not firm, nontender, no guarding and not rigid : General: No CVA tenderness and Yes no CVA tenderness Back/Spine/Pelvis: Back: no CVA tenderness, No CVA tenderness and No back tenderness Skin: General skin exam: no rashes or lesions noted and elasticity normal Neuro: General: patient oriented x3, gait normal, no meningeal signs and CN's II-XI intact bilaterally Cranial nerves: Yes CN's II-XII intact bilaterally Extrem: General: Yes normal to inspection and Yes full ROM Psych: Appearance: grossly normal, well kempt and not disheveled Course Course Course Narrative: Labs, EKG, troponin, and Covid/influenza ordered Reevaluation(s) Reevaluation #1: normal work up. Troponin 5.9 after 1 week of abdominal pain and diarrhea. No need for repeat troponin. EKG negative STEMI. Patient is playful playing with his children. Patient well-appearing. Diagnosis gastroenteritis versus viral syndrome. No need for Abdomen CT scan imaging or chest xray.. I MDM - Chest Pain MDM Narrative Medical decision making narrative: Gastroenteritis. Viral syndrome Lab Data Result diagrams: 02/04/22 13:53 02/04/22 13:53 Labs: Lab Results 02/04/22 02/04/22 02/04/22 Range/Units 12:37 12:37 13:53 WBC 9.8 (4.8-10.8) X10*3/uL RBC 4.75 (4.60-5.80) X10*6/uL Hgb 13.9 L (14.0-18.0) g/dl Hct 41.0 L (42.0-52.0) % MCV 86.3 (80.0-98.0) fL MCH 29.3 (27.0-33.0) pg MCHC 33.9 (31.0-36.0) g/dl RDW 13.2 (11.0-16.0) % Plt Count 245 (160-400) X10*3/uL MPV 10.8 (9.4-12.4) fL Immature Gran % (Auto) 0.3 (0.0-0.4) % Neut % (Auto) 73.1 H (45-73) % Lymph % (Auto) 18.5 L (20-40) % Bleck[place] % (Auto) 7.5 (2-11) % Eos % (Auto) 0.4 (0-4) % Baso % (Auto) 0.2 (0-2) % Lymph # (Auto) 1.8 (1.2-4.9) X10*3/uL [place] # (Auto) 0.7 (0.1-1.2) X10*3/uL Eos # (Auto) 0.0 (0.0-0.4) X10*3/uL Baso # (Auto) 0.0 (0.0-0.2) X10*3/uL Abs Immat Gran (auto) 0.03 (0.00-0.03) X10*3/uL Absolute Neuts (auto) 7.2 (2.0-8.3) x10*3/uL Absolute Nucleated RBC 0.000 (0.0-0.012) X10*3/uL Nucleated RBC % (auto) 0.0 (0.0-0.2) /100WBC Sodium (135-145) mmol/L Potassium (3.3-5.1) mmol/L Chloride (96-108) mmol/L Carbon Dioxide (22-29) mmol/L Anion Gap (12-20) BUN (9-16) mg/dL Creatinine (0.5-1.4) mg/dL Estim Creat Clear Calc Estimated GFR Random Glucose (60-115) mg/dL Calcium (8.4-10.2) mg/dL Total Bilirubin (0.0-1.0) mg/dL Direct Bilirubin (0.0-0.5) mg/dL AST (5-37) U/L ALT (0-40) U/L Alkaline Phosphatase (39-117) U/L Troponin I High Sens (<3.5-35.0) ng/L Total Protein (6.5-8.0) g/dL Albumin (3.5-5.0) g/dL Lipase (8-78) U/L COVID-19 (MAYA) Negative (Negative) COVID-19 Clin Com See Note Influenza Type A (JERICA) Negative (Negative) Influenza Type B (JERICA) Negative (Negative) Influenza A & B Note See Note 02/04/22 02/04/22 02/04/22 Range/Units 13:53 13:53 13:53 WBC (4.8-10.8) X10*3/uL RBC (4.60-5.80) X10*6/uL Hgb (14.0-18.0) g/dl Hct (42.0-52.0) % MCV (80.0-98.0) fL MCH (27.0-33.0) pg MCHC (31.0-36.0) g/dl RDW (11.0-16.0) % Plt Count (160-400) X10*3/uL MPV (9.4-12.4) fL Immature Gran % (Auto) (0.0-0.4) % Neut % (Auto) (45-73) % Lymph % (Auto) (20-40) % [place]ck[place] % (Auto) (2-11) % Eos % (Auto) (0-4) % Baso % (Auto) (0-2) % Lymph # (Auto) (1.2-4.9) X10*3/uL [place] # (Auto) (0.1-1.2) X10*3/uL Eos # (Auto) (0.0-0.4) X10*3/uL Baso # (Auto) (0.0-0.2) X10*3/uL Abs Immat Gran (auto) (0.00-0.03) X10*3/uL Absolute Neuts (auto) (2.0-8.3) x10*3/uL Absolute Nucleated RBC (0.0-0.012) X10*3/uL Nucleated RBC % (auto) (0.0-0.2) /100WBC Sodium 141 (135-145) mmol/L Potassium 4.2 (3.3-5.1) mmol/L Chloride 106 (96-108) mmol/L Carbon Dioxide 28 (22-29) mmol/L Anion Gap 11 L (12-20) BUN 18 H (9-16) mg/dL Creatinine 0.95 (0.5-1.4) mg/dL Estim Creat Clear Calc 127.2 Estimated GFR > 60 Random Glucose 112 (60-115) mg/dL Calcium 10.0 (8.4-10.2) mg/dL Total Bilirubin 0.5 (0.0-1.0) mg/dL Direct Bilirubin 0.2 (0.0-0.5) mg/dL AST 20 (5-37) U/L ALT 29 (0-40) U/L Alkaline Phosphatase 72 (39-117) U/L Troponin I High Sens 5.9 (<3.5-35.0) ng/L Total Protein 7.5 (6.5-8.0) g/dL Albumin 4.7 (3.5-5.0) g/dL Lipase 32 32 (8-78) U/L COVID-19 (MAYA) (Negative) COVID-19 Clin Com Influenza Type A (JERICA) (Negative) Influenza Type B (J[facility]ICA) (Negative) Influenza A & B Note ECG Data ECG #1: Interpretation: Normal sinus rhythm. Normal EKG. Ventricular rate 72. Pr interval 150. QRS 88. QTC 405. Negative STEMI Discharge Plan Discharge Clinical Impression: Gastroenteritis, Viral syndrome Patient Disposition: Home, Self-Care Instructions: Gastroenteritis (ED), Viral Syndrome (ED) Prescriptions: No Action ibuprofen 600 mg tablet 600 mg PO Q6H PRN (Reason: pain) Qty: 30 0RF doxycycline monohydrate 100 mg capsule 100 mg PO BID Qty: 14 0RF fluticasone propionate [Flonase Allergy Relief] 50 mcg/actuation spray,suspension 1 spray intranasal Q12H Qty: 16 0RF Rx Instructions: administer into each nostril ibuprofen 600 mg tablet 600 mg PO Q6H PRN (Reason: pain) Qty: 20 0RF metoclopramide HCl [Reglan] 10 mg tablet 10 mg PO Q6H PRN (Reason: nausea and vomiting) Qty: 14 0RF sumatriptan succinate [Imitrex] 50 mg tablet See Rx Instructions .ROUTE .COMPLEX Qty: 7 0RF Rx Instructions: take 1 tab at onset of headache; if no relief may repeat 1 tab after at least 2 hrs; max = 2 tabs/24 hr tvpyusqcfl-hgnypobwkbcaf-vjjq [Fioricet] 50-300-40 mg capsule 1 cap PO Q6H PRN (Reason: headache) Qty: 20 0RF kppgyrdajq-oglopaehwykji-tmfd [Fioricet] 50-300-40 mg capsule 1 cap PO Q8H PRN (Reason: pain) Qty: 14 0RF doxycycline monohydrate 100 mg capsule 100 mg PO BID 7 Days Qty: 14 0RF prednisone 20 mg tablet 40 mg PO DAILY 5 Days Qty: 10 0RF famotidine [Pepcid] 20 mg tablet 20 mg PO BID 7 Days Qty: 14 0RF hydroxyzine HCl 25 mg tablet 25 mg PO TID PRN (Reason: itching) Qty: 21 0RF Stand Alone Forms: Work/School Release Interventions: ED Discharge Assessment Last Done: 02/04/22 15:35 Discharge Date/Time: 02/04/22 15:35 Print Language: Sri Lankan
[2022-02-04 13:05] LABS: COVID-19 Test Negative (Negative); Influenza A Negative (Negative); Influenza B2 Negative (Negative)
[2022-02-04 13:59] LABS: MANUAL DIFF FLAG NO
[2022-02-04 14:00] LABS: Basophils Percent Auto 0.2 % (0-2); Eosinophils Percent Auto 0.4 % (0-4); Hemoglobin 13.9 g/dl (14.0-18.0); Imm Gran Abs Auto 0.03 X10*3/uL (0.00-0.03); Imm Gran Pct Auto 0.3 % (0.0-0.4); Lymphocytes Absolute Auto 1.8 X10*3/uL (1.2-4.9); Lymphocytes Percent Auto 18.5 % (20-40); Mean Corpuscular HGB Conc 33.9 g/dl (31.0-36.0); Mean Corpuscular Hemoglobin 29.3 pg (27.0-33.0); Mean Corpuscular Volume 86.3 fL (80.0-98.0); Mean Platelet Volume 10.8 fL (9.4-12.4); Monocytes Absolute Auto 0.7 X10*3/uL (0.1-1.2); Monocytes Percent Auto 7.5 % (2-11); Neutrophils Absolute Auto 7.2 x10*3/uL (2.0-8.3); Neutrophils Percent Auto 73.1 % (45-73); Platelet Count 245 X10*3/uL (160-400); Red Blood Count 4.75 X10*6/uL (4.60-5.80); Red Cell Distribution Width 13.2 % (11.0-16.0); White Blood Count 9.8 X10*3/uL (4.8-10.8)
[2022-02-04 14:15] LABS: Lipase 32 U/L (8-78)
[2022-02-04 14:17] LABS: Alanine Aminotransferase 29 U/L (0-40); Albumin Level 4.7 g/dL (3.5-5.0); Alkaline Phosphatase 72 U/L (39-117); Anion Gap 11 (12-20); Aspartate Amino Transferase 20 U/L (5-37); Bilirubin Direct 0.2 mg/dL (0.0-0.5); Bilirubin Total 0.5 mg/dL (0.0-1.0); Blood Urea Nitrogen 18 mg/dL (9-16); Carbon Dioxide 28 mmol/L (22-29); Chloride 106 mmol/L (96-108); Creatinine Clr Calc Pharmacy 127.2; Estimated Glomerular Filt Rate > 60; Glucose Random 112 mg/dL (60-115); Lipase 32 U/L (8-78); Potassium 4.2 mmol/L (3.3-5.1); Sodium 141 mmol/L (135-145); Total Protein 7.5 g/dL (6.5-8.0)
[2022-02-04 14:21] LABS: Troponin-I High Sensitivity 5.9 ng/L (<3.5-35.0)
--- NOTE | 2022-02-04 15:33 | PC.NURSE ---
PT PRESENTED WITH FLU LIKE SYMPTOMS, COUGH, SORE THROAT, REST OF FAMILY IS FLU +. PREVIOUSLY STATED HE HAD SOME CHEST WALL PAIN WITH INSP.
== END 2022-02-04 15:35 | disposition home or self-care (01) ==
PROVIDERS: Physician Assistant; Emergency Provider Emergency Medicine
DX: A08.4 Viral intestinal infection, unspecified (principal); B34.9 Viral infection, unspecified; R07.89 Other chest pain; R10.13 Epigastric pain; R19.7 Diarrhea, unspecified; Z20.822 Contact with and (suspected) exposure to COVID-19; Z79.899 Other long term (current) drug therapy
CPT/HCPCS: 36415; 80048; 80076; 83690; 84484; 85025; 87502; 87635; 93005; 99283; 99284

== ENCOUNTER 2022-10-14 09:51 | Outpatient (REF) | payer MEDICAID, SELFPAY ==
--- NOTE | ~2022-10-14 | XR_ITS ---
EXAMINATION: XR LUMBOSACRAL SPINE CLINICAL INFORMATION: Dorsalgia. COMPARISON: None TECHNIQUE: Three views of the lumbosacral spine. FINDINGS: The vertebral bodies and posterior elements are normal. The disc spaces are preserved and the vertebral alignment is normal. The paraspinal soft tissues are normal. XR/XR lumbar spine 2-3V IMPRESSION: Unremarkable chest examination.
== END 2022-10-14 09:52 | disposition home or self-care (01) ==
LOC: HO.XRAY 09:51
PROVIDERS: PCP Internal Medicine; Visit Provider Internal Medicine
DX: M54.89 Other dorsalgia (principal)
CPT/HCPCS: 72100

== ENCOUNTER 2023-02-11 16:32 | Emergency (ER) | payer MEDICAID, SELFPAY ==
--- NOTE | ~2023-02-11 | XR_ITS ---
EXAMINATION: XR CHEST CLINICAL INFORMATION: Chest pain. COMPARISON: 05/31/2021 chest radiograph. TECHNIQUE: 2 views of the chest were obtained. FINDINGS: No significant abnormality is noted involving the heart, lungs, mediastinum, bony thorax or soft tissues. XR/XR chest 2V IMPRESSION: No acute cardiopulmonary process.
--- NOTE | 2023-02-11 16:33 | ECG_ITS ---
Test Reason : CHEST PAIN Blood Pressure : / mmHG Vent. Rate : 071 BPM Atrial Rate : 071 BPM P-R Int : 162 ms QRS Dur : 094 ms QT Int : 368 ms P-R-T Axes : 069 029 026 degrees QTc Int : 399 ms Normal sinus rhythm Normal ECG When compared with ECG of 04-FEB-2022 13:20, No significant change was found Referred By: Natacha Claire Electronically Signed By:GARRY GORE MD
[2023-02-11 16:39] VITALS: BP 130/73; PULSE 72; RESP 18; TEMP 36.6; O2SAT 97; BMI 32.5
--- NOTE | 2023-02-11 16:40 | ED_ITS ---
HPI - Chest Pain General Chief Complaint: Chest Pain <ELIZABET Carrillo - Last Filed: 02/11/23 16:42> Stated Complaint: chest pain <ELIZABET Carrillo - Last Filed: 02/11/23 16:42> Time Seen by Provider: 02/11/23 18:21 <ELIZABET Carrillo - Last Filed: 02/11/23 16:42> Source: patient <ELIZABET Johnson - Last Filed: 02/11/23 19:54> Mode of arrival: ambulatory <ELIZABET Johnson - Last Filed: 02/11/23 19:54> Limitations: no limitations <ELIZABET Johnson Last Filed: 02/11/23 19:54> History of Present Illness HPI narrative: This is a 37-year-old male history of depression, allergic rhinitis, chronic lower back pain presenting to the emergency department for evaluation of substernal chest pain for the past week with intermittent radiation to right upper extremity. He reports associated shortness of breath intermittently however not constantly. He tells me this is all worse with exertion. Patient has never experienced anything like this before. He does report he has been doing heavy lifting at work recently. No significant personal or family cardiac history. No history of PE or DVT, no long travel, not on hormone replacement therapy, no history of hypercoagulable disorders, no trauma to the chest. Patient denies fevers, chills, cough, nausea, vomiting, abdominal pain, headache, vision changes, dizziness and weakness. <ELIZABET Johnson Last Filed: 02/11/23 19:54> Related Data Home Medications: Previous Rx's Medication Instructions Recorded ibuprofen 600 mg tablet 600 mg PO Q6H PRN pain #30 tabs 09/03/20 doxycycline monohydrate 100 mg 100 mg PO BID #14 caps 12/27/20 capsule fluticasone propionate 50 1 spray intranasal Q12H #16 grams 12/27/20 mcg/actuation nasal spray,suspension (Flonase Allergy Relief) ibuprofen 600 mg tablet 600 mg PO Q6H PRN pain #20 tabs 12/27/20 igplrdqhmi-nujxeifbshofw-wexcijvz 1 cap PO Q6H PRN headache #20 caps 01/23/21 50 mg-300 mg-40 mg capsule (Fioricet) sumatriptan succinate 50 mg tablet See Rx Instructions PO .COMPLEX #7 01/23/21 (Imitrex) tabs mqvkqqtlxa-tayjecvbxygcb-fecexynn 1 cap PO Q8H PRN pain #14 caps 01/31/21 50 mg-300 mg-40 mg capsule (Fioricet) doxycycline monohydrate 100 mg 100 mg PO BID 7 days #14 caps 01/31/21 capsule famotidine 20 mg tablet (Pepcid) 20 mg PO BID 7 days #14 tabs 05/31/21 hydroxyzine HCl 25 mg tablet 25 mg PO TID PRN itching #21 tabs 05/31/21 prednisone 20 mg tablet 40 mg PO DAILY 5 days #10 tabs 05/31/21 metoclopramide HCl 10 mg tablet 10 mg PO Q6H PRN nausea and 07/11/21 (Reglan) vomiting #14 tabs cyclobenzaprine 10 mg tablet 10 mg PO BEDTIME PRN muscle spasm 02/11/23 #7 tabs ketorolac 10 mg tablet 10 mg PO TID PRN pain 5 days #15 02/11/23 tabs prednisone 20 mg tablet 40 mg PO DAILY 5 days #10 tabs 02/11/23 <ELIZABET Carrillo - Last Filed: 02/11/23 16:42> Allergies/Adverse Reactions: Allergies Allergy/AdvReac Type Severity Reaction Status Date / Time penicillin V Allergy Unknown rash Verified 07/11/21 13:53 Penicillins [PENICILLINS] Allergy Unknown RASH Verified 07/11/21 13:53 pravastatin Allergy Unknown chest Verified 07/11/21 13:53 pain, constipation <ELIZABET Carrillo - Last Filed: 02/11/23 16:42> Review of Systems Review of Systems: Constitutional : No Weight loss, No Fever, No Chills, No Fatigue, No Malaise ENT/Mouth : No sore throat, No Rhinorrhea Eyes: No Eye Pain, No Swelling, No Redness Cardiovascular : + Chest Pain, + SOB, + Dyspnea on Exertion, No Orthopnea, No Edema, No Palpitations Respiratory : No Cough, No Sputum, No Wheezing Gastrointestinal : No Nausea, No Vomiting, No Diarrhea, No Constipation, No abdominal Pain, No Hematochezia, No Melena Genitourinary : No Dysuria, No Urinary Frequency, No Hematuria, Musculoskeletal : No joint pain, No Myalgias, No Joint Swelling Skin : No Skin Lesions, No rash Neuro : No Weakness, No Numbness, No Dizziness, No Headache Psych : No Anxiety/Panic, No Depression All other systems reviewed and are negative <ELIZABET Johnson - Last Filed: 02/11/23 19:54> Yes all other systems are reviewed and are negative <ELIZABET Johnson - Last Filed: 02/11/23 19:54> [facility] Past Medical History Attestation statement: The following information was validated with the patient. <ELIZABET Johnson - Last Filed: 02/11/23 19:54> Source: old records reviewed and nursing notes reviewed <ELIZABET Johnson - Last Filed: 02/11/23 19:54> Medical History: Medical History (Updated 02/11/23 @ 18:43 by ELIZABET Johnson) Asthma Costochondritis High cholesterol HTN (hypertension), benign Migraines Sinus congestion <ELIZABET Carrillo - Last Filed: 02/11/23 16:42> Surgical History: Surgical History No significant past surgical history <ELIZABET Carrillo - Last Filed: 02/11/23 16:42> Social History Social History: Social History Alcohol intake: never Smoked in Last 30 Days: No Use of substances other than those prescribed or required for medical reasons: No Advance Directives: No Advance Directives Information Provided: No <ELIZABET Carrillo - Last Filed: 02/11/23 16:42> Physical Exam Vital Signs: Vital Signs: Last Vital Signs Temp 98.0 F 02/11/23 19:32 Pulse 68 02/11/23 19:32 Resp 16 02/11/23 19:32 BP 134/89 02/11/23 19:32 Pulse Ox 97 02/11/23 19:32 O2 Del Method Room Air 02/11/23 19:32 BMI result Body Mass Index 32.5 <ELIZABET Carrillo - Last Filed: 02/11/23 16:42> Vital Signs: Last Vital Signs Temp 98.0 F 02/11/23 19:32 Pulse 68 02/11/23 19:32 Resp 16 02/11/23 19:32 BP 134/89 02/11/23 19:32 Pulse Ox 97 02/11/23 19:32 O2 Del Method Room Air 02/11/23 19:32 BMI result Body Mass Index 32.5 vss <ELIZABET Johnson Last Filed: 02/11/23 19:54> Appearance: Alert.? Oriented X3.? No acute distress.? Head: Normocephalic, atraumatic, no step-offs or deformities Eyes: Pupils equal, round and reactive to light.? CVS: Normal heart rate and rhythm.? Pulses normal.?+ anterior chest wall pain on palpation Respiratory: No respiratory distress.? Breath sounds normal.? Abdomen: Soft and nontender.? Skin: Skin warm and dry.? Normal skin color.? Normal skin turgor.? Extremities: No lower extremity edema.? No calf ttp, negative juancho b/l. 5/5 strength to bilateral upper and lower extremities Neuro: Oriented X 3.? No motor deficit.? No sensory deficit. CN 2-12 intact <ELIZABET Johnson - Last Filed: 02/11/23 19:54> Course Course Course Narrative: RME - 37 yo male presents to the ER for evaluation of constant middle chest pains for the last 1 week. He woke up with the pain. It is sharp and sometimes radiates to the left side and sometimes the right side of his chest and down the right arm. Sometimes short of breath when the pain intensifies. No URI sxs, cough, N/V/D or abdominal pain. VSS in triage Plan: EKG, CXR, lab workup <ELIZABET Carrillo - Last Filed: 02/11/23 16:42> Reevaluation(s) Reevaluation #1: Patient's CBC appears to be around patient's baseline. Chemistry with no acute findings requiring intervention. Troponin negative, EKG nonischemic unlikely ACS. I did add a BNP and a D-dimer as well as viral tests which are pending at this time. Will give patient Toradol for pain <ELIZABET Johnson - Last Filed: 02/11/23 19:54> Time: 18:30 <LEIZABET Johnson - Last Filed: 02/11/23 19:54> Reevaluation #2: BNP within normal limits. Pending D-dimer. <ELIZABET Johnson - Last Filed: 02/11/23 19:54> Time: 19:38 <ELIZABET Johnson - Last Filed: 02/11/23 19:54> Reevaluation #3: CXR unremarkable, dimer negative unlikeley PE. <ELIZABET Johnson - Last Filed: 02/11/23 19:54> Time: 19:51 <ELIZABET Johnson - Last Filed: 02/11/23 19:54> Additional Reevaluation(s): 1950 Patient feeling better I suspect this is musculoskeletal in nature, not ACS, PE, dissection. HEART score zero. No signs of pneumonia. Patient to be discharged home with Toradol and cyclobenzaprine. Educated patient on diagnosis and treatment plan, answered all question, patient verbalizes understanding. At this time patient will be discharged home, advised to return with new or worsening symptoms. Educated on worrisome signs and symptoms and when to return. At this time I feel comfortable discharge home. <ELIZABET Johnson - Last Filed: 02/11/23 19:54> Medications Administered Discontinued Medications Generic Name Dose Route Start Last Admin Trade Name Freq PRN Reason Stop Dose Admin Ketorolac Tromethamine 30 mg 02/11/23 18:30 02/11/23 19:07 Ketorolac Tromethamine 15 Mg/Ml Vial IM 02/11/23 18:31 30 mg ONCE ONE Administration <ELIZABET Carrillo - Last Filed: 02/11/23 16:42> Medications Administered Discontinued Medications Generic Name Dose Route Start Last Admin Trade Name Freq PRN Reason Stop Dose Admin Ketorolac Tromethamine 30 mg 02/11/23 18:30 02/11/23 19:07 Ketorolac Tromethamine 15 Mg/Ml Vial IM 02/11/23 18:31 30 mg ONCE ONE Administration <ELIZABET Johnson - Last Filed: 02/11/23 19:54> Medical Decision Making Medical Decision Making [facility] Narrative: 1827 37-year-old male presents for evaluation of chest pain and intermittent shortness of breath past week. Chest pain is substernal in intermittently r adiates to right upper extremity. Physical exam w/ anterior chest wall pain on palpation. Negative Juancho bilaterally. Regular rate and rhythm. Lungs clear. Vital signs stable. Patient well appearing. Likely noncardiac related chest pain vs costochondritis or viral illness. I do not suspect ACS, PE, aortic dissection, AAA, pneumonia. Plan labs, imaging, cardiac workup in D-dimer due to the fact the patient reports shortness of breath. <ELIZABET Johnson - Last Filed: 02/11/23 19:54> Differential Diagnosis Differential Diagnoses: The differential diagnosis associated with the presentation includes <ELIZABET Johnson - Last Filed: 02/11/23 19:54> Likely noncardiac related chest pain versus costochondritis or viral il lness. I do not suspect ACS, PE, aortic dissection, AAA, pneumonia. <ELIZABET Johnson - Last Filed: 02/11/23 19:54> Admission/Observation Consideration of admission/observation: Escalation of care including admission/observation considered <ELIZABET Johnson - Last Filed: 02/11/23 19:54> Unlikely <ELIZABET Johnson - Last Filed: 02/11/23 19:54> Lab Data [facility] Lab Attestation statement: I reviewed the patient's lab results. <ELIZABET Johnson - Last Filed: 02/11/23 19:54> Result Diagrams: 02/11/23 16:56 02/11/23 16:56 <ELIZABET Carrillo - Last Filed: 02/11/23 16:42> Labs: Lab Results 02/11/23 02/11/23 02/11/23 Range/Units 16:56 16:56 16:56 WBC 9.9 (4.8-10.8) X10*3/uL RBC 4.52 L (4.60-5.80) X10*6/uL Hgb 13.5 L (14.0-18.0) g/dl Hct 39.2 L (42.0-52.0) % MCV 86.7 (80.0-98.0) fL MCH 29.9 (27.0-33.0) pg MCHC 34.4 (31.0-36.0) g/dl RDW 13.2 (11.0-16.0) % Plt Count 216 (160-400) X10*3/uL MPV 11.6 (9.4-12.4) fL Immature Gran % (Auto) 0.4 (0.0-0.4) % Neut % (Auto) 73.5 H (45-73) % Lymph % (Auto) 18.3 L (20-40) % Tyler % (Auto) 7.1 (2-11) % Eos % (Auto) 0.4 (0-4) % Baso % (Auto) 0.3 (0-2) % Lymph # (Auto) 1.8 (1.2-4.9) X10*3/uL Tyler # (Auto) 0.7 (0.1-1.2) X10*3/uL Eos # (Auto) 0.0 (0.0-0.4) X10*3/uL Baso # (Auto) 0.0 (0.0-0.2) X10*3/uL Abs Immat Gran (auto) 0.04 H (0.00-0.03) X10*3/uL Absolute Neuts (auto) 7.3 (2.0-8.3) x10*3/uL Absolute Nucleated RBC 0.000 (0.0-0.012) X10*3/uL Nucleated RBC % (auto) 0.0 (0.0-0.2) /100WBC D-Dimer High Sensitivty NG/ML Sodium 140 (135-145) mmol/L Potassium 3.8 (3.3-5.1) mmol/L Chloride 105 (96-108) mmol/L Carbon Dioxide 26 (22-29) mmol/L Anion Gap 13 (12-20) BUN 19 H (9-16) mg/dL Creatinine 0.91 (0.5-1.4) mg/dL Estim Creat Clear Calc 129.4 Estimated GFR > 60 Random Glucose 160 H (60-115) mg/dL Calcium 9.0 D (8.4-10.2) mg/dL Magnesium 2.1 (1.6-2.6) mg/dL Total Bilirubin 0.4 (0.0-1.0) mg/dL Direct Bilirubin < 0.2 (0.0-0.5) mg/dL AST 19 (5-37) U/L ALT 23 (0-40) U/L Alkaline Phosphatase 62 (39-117) U/L Troponin I High Sens 3.5 (<3.5-35.0) ng/L B-Natriuretic Peptide (<100) pg/mL Total Protein 6.6 (6.5-8.0) g/dL Albumin 4.3 (3.5-5.0) g/dL 02/11/23 02/11/23 Range/Units 16:56 19:30 WBC (4.8-10.8) X10*3/uL RBC (4.60-5.80) X10*6/uL Hgb (14.0-18.0) g/dl Hct (42.0-52.0) % MCV (80.0-98.0) fL MCH (27.0-33.0) pg MCHC (31.0-36.0) g/dl RDW (11.0-16.0) % Plt Count (160-400) X10*3/uL MPV (9.4-12.4) fL Immature Gran % (Auto) (0.0-0.4) % Neut % (Auto) (45-73) % Lymph % (Auto) (20-40) % Tyler % (Auto) (2-11) % Eos % (Auto) (0-4) % Baso % (Auto) (0-2) % Lymph # (Auto) (1.2-4.9) X10*3/uL Tyler # (Auto) (0.1-1.2) X10*3/uL Eos # (Auto) (0.0-0.4) X10*3/uL Baso # (Auto) (0.0-0.2) X10*3/uL Abs Immat Gran (auto) (0.00-0.03) X10*3/uL Absolute Neuts (auto) (2.0-8.3) x10*3/uL Absolute Nucleated RBC (0.0-0.012) X10*3/uL Nucleated RBC % (auto) (0.0-0.2) /100WBC D-Dimer High Sensitivty < 150 NG/ML Sodium (135-145) mmol/L Potassium (3.3-5.1) mmol/L Chloride (96-108) mmol/L Carbon Dioxide (22-29) mmol/L Anion Gap (12-20) BUN (9-16) mg/dL Creatinine (0.5-1.4) mg/dL Estim Creat Clear Calc Estimated GFR Random Glucose (60-115) mg/dL Calcium (8.4-10.2) mg/dL Magnesium (1.6-2.6) mg/dL Total Bilirubin (0.0-1.0) mg/dL Direct Bilirubin (0.0-0.5) mg/dL AST (5-37) U/L ALT (0-40) U/L Alkaline Phosphatase (39-117) U/L Troponin I High Sens (<3.5-35.0) ng/L B-Natriuretic Peptide < 10 (<100) pg/mL Total Protein (6.5-8.0) g/dL Albumin (3.5-5.0) g/dL <ELIZABET Carrillo - Last Filed: 02/11/23 16:42> Lab Results 02/11/23 02/11/23 02/11/23 Range/Units 16:56 16:56 16:56 WBC 9.9 (4.8-10.8) X10*3/uL RBC 4.52 L (4.60-5.80) X10*6/uL Hgb 13.5 L (14.0-18.0) g/dl Hct 39.2 L (42.0-52.0) % MCV 86.7 (80.0-98.0) fL MCH 29.9 (27.0-33.0) pg MCHC 34.4 (31.0-36.0) g/dl RDW 13.2 (11.0-16.0) % Plt Count 216 (160-400) X10*3/uL MPV 11.6 (9.4-12.4) fL Immature Gran % (Auto) 0.4 (0.0-0.4) % Neut % (Auto) 73.5 H (45-73) % Lymph % (Auto) 18.3 L (20-40) % Tyler % (Auto) 7.1 (2-11) % Eos % (Auto) 0.4 (0-4) % Baso % (Auto) 0.3 (0-2) % Lymph # (Auto) 1.8 (1.2-4.9) X10*3/uL Tyler # (Auto) 0.7 (0.1-1.2) X10*3/uL Eos # (Auto) 0.0 (0.0-0.4) X10*3/uL Baso # (Auto) 0.0 (0.0-0.2) X10*3/uL Abs Immat Gran (auto) 0.04 H (0.00-0.03) X10*3/uL Absolute Neuts (auto) 7.3 (2.0-8.3) x10*3/uL Absolute Nucleated RBC 0.000 (0.0-0.012) X10*3/uL Nucleated RBC % (auto) 0.0 (0.0-0.2) /100WBC D-Dimer High Sensitivty NG/ML Sodium 140 (135-145) mmol/L Potassium 3.8 (3.3-5.1) mmol/L Chloride 105 (96-108) mmol/L Carbon Dioxide 26 (22-29) mmol/L Anion Gap 13 (12-20) BUN 19 H (9-16) mg/dL Creatinine 0.91 (0.5-1.4) mg/dL Estim Creat Clear Calc 129.4 Estimated GFR > 60 Random Glucose 160 H (60-115) mg/dL Calcium 9.0 D (8.4-10.2) mg/dL Magnesium 2.1 (1.6-2.6) mg/dL Total Bilirubin 0.4 (0.0-1.0) mg/dL Direct Bilirubin < 0.2 (0.0-0.5) mg/dL AST 19 (5-37) U/L ALT 23 (0-40) U/L Alkaline Phosphatase 62 (39-117) U/L Troponin I High Sens 3.5 (<3.5-35.0) ng/L B-Natriuretic Peptide (<100) pg/mL Total Protein 6.6 (6.5-8.0) g/dL Albumin 4.3 (3.5-5.0) g/dL 02/11/23 02/11/23 Range/Units 16:56 19:30 WBC (4.8-10.8) X10*3/uL RBC (4.60-5.80) X10*6/uL Hgb (14.0-18.0) g/dl Hct (42.0-52.0) % MCV (80.0-98.0) fL MCH (27.0-33.0) pg MCHC (31.0-36.0) g/dl RDW (11.0-16.0) % Plt Count (160-400) X10*3/uL MPV (9.4-12.4) fL Immature Gran % (Auto) (0.0-0.4) % Neut % (Auto) (45-73) % Lymph % (Auto) (20-40) % Tyler % (Auto) (2-11) % Eos % (Auto) (0-4) % Baso % (Auto) (0-2) % Lymph # (Auto) (1.2-4.9) X10*3/uL Tyler # (Auto) (0.1-1.2) X10*3/uL Eos # (Auto) (0.0-0.4) X10*3/uL Baso # (Auto) (0.0-0.2) X10*3/uL Abs Immat Gran (auto) (0.00-0.03) X10*3/uL Absolute Neuts (auto) (2.0-8.3) x10*3/uL Absolute Nucleated RBC (0.0-0.012) X10*3/uL Nucleated RBC % (auto) (0.0-0.2) /100WBC D-Dimer High Sensitivty < 150 NG/ML Sodium (135-145) mmol/L Potassium (3.3-5.1) mmol/L Chloride (96-108) mmol/L Carbon Dioxide (22-29) mmol/L Anion Gap (12-20) BUN (9-16) mg/dL Creatinine (0.5-1.4) mg/dL Estim Creat Clear Calc Estimated GFR Random Glucose (60-115) mg/dL Calcium (8.4-10.2) mg/dL Magnesium (1.6-2.6) mg/dL Total Bilirubin (0.0-1.0) mg/dL Direct Bilirubin (0.0-0.5) mg/dL AST (5-37) U/L ALT (0-40) U/L Alkaline Phosphatase (39-117) U/L Troponin I High Sens (<3.5-35.0) ng/L B-Natriuretic Peptide < 10 (<100) pg/mL Total Protein (6.5-8.0) g/dL Albumin (3.5-5.0) g/dL <ELIZABET Johnson Last Filed: 02/11/23 19:54> Independent Interpretation I performed an independent interpretation of an: EKG (Ventricular rate of 71 CA normal QRS, QT and QTC normal. NSR no DAYNA or inversions concerning for ischemia. ) and Plain X-Ray (XR/XR chest 2V IMPRESSION: No acute cardiopulmonary process.) <ELIZABET Johnson Last Filed: 02/11/23 19:54> Radiology Impression Discussion of test interpretation with radiology: I have reviewed the radiologist's reading. <ELIZABET Johnson Last Filed: 02/11/23 19:54> Prescription Management I considered prescription management with: Pain Medication (todol) and Other (cyclobenzaprine ) <ELIZABET Johnson Last Filed: 02/11/23 19:54> Core Measures AMI core measures followed: Yes <ELIZABET Johnson Last Filed: 02/11/23 19:54> Measure exclusions: not indicated <ELIZABET Johnson Last Filed: 02/11/23 19:54> Critical Care Time Critical Care Time Critical Care Time: No <ELIZABET Johnson Last Filed: 02/11/23 19:54> Discharge Plan Discharge Clinical Impression: Chest pain, Shortness of breath <ELIZABET Carrillo Last Filed: 02/11/23 16:42> Patient Disposition: Home, Self-Care <ELIZABET Carrillo - Last Filed: 02/11/23 16:42> Instructions: Chest Pain (DC), Shortness of Breath (ED) <ELIZABET Carrillo - Last Filed: 02/11/23 16:42> Additional Instructions: Take your medications as prescribed. If you were prescribed antibiotics today, it is important that you take your medication to their entirety, do not skip any doses, do not finish them early. Follow-up with your primary care provider this week. Follow-up with cardiology information below Return to the emergency department with new or worsening symptoms. Such as fevers, chills, chest pain, shortness of breath, nausea, vomiting, dizziness, headache, vision changes, lethargy In case of emergency call 911 Toradol has been sent to your pharmacy, you tolerated this well in the department. Please take this as prescribed do not take this with ibuprofen, or other NSAIDs, do not mix this with alcohol. Side effects of this medication including increased risk for bleeding and possible kidney injury. Cyclobenzaprine as a muscle relaxer that has been sent to her pharmacy please take this as prescribed can cause sleepiness/drowsiness, do not take while driving or operating machinery, do not mix with alcohol or other sedatives. <ELIZABET Carrillo - Last Filed: 02/11/23 16:42> Prescriptions: New cyclobenzaprine 10 mg tablet 10 mg PO BEDTIME PRN (Reason: muscle spasm) Qty: 7 0RF prednisone 20 mg tablet 40 mg PO DAILY 5 Days Qty: 10 0RF ketorolac 10 mg tablet 10 mg PO TID PRN (Reason: pain) 5 Days Qty: 15 0RF No Action ibuprofen 600 mg tablet 600 mg PO Q6H PRN (Reason: pain) Qty: 30 0RF doxycycline monohydrate 100 mg capsule 100 mg PO BID Qty: 14 0RF fluticasone propionate [Flonase Allergy Relief] 50 mcg/actuation spray,suspension 1 spray intranasal Q12H Qty: 16 0RF Rx Instructions: administer into each nostril ibuprofen 600 mg tablet 600 mg PO Q6H PRN (Reason: pain) Qty: 20 0RF metoclopramide HCl [Reglan] 10 mg tablet 10 mg PO Q6H PRN (Reason: nausea and vomiting) Qty: 14 0RF sumatriptan succinate [Imitrex] 50 mg tablet See Rx Instructions .ROUTE .COMPLEX Qty: 7 0RF Rx Instructions: take 1 tab at onset of headache; if no relief may repeat 1 tab after at least 2 hrs; max = 2 tabs/24 hr squmdwxeeu-itonfwzmcljyk-iqos [Fioricet] 50-300-40 mg capsule 1 cap PO Q6H PRN (Reason: headache) Qty: 20 0RF jwnkryhiep-qoidphvpagifd-vujq [Fioricet] 50-300-40 mg capsule 1 cap PO Q8H PRN (Reason: pain) Qty: 14 0RF doxycycline monohydrate 100 mg capsule 100 mg PO BID 7 Days Qty: 14 0RF prednisone 20 mg tablet 40 mg PO DAILY 5 Days Qty: 10 0RF famotidine [Pepcid] 20 mg tablet 20 mg PO BID 7 Days Qty: 14 0RF hydroxyzine HCl 25 mg tablet 25 mg PO TID PRN (Reason: itching) Qty: 21 0RF <ELIZABET Carrillo - Last Filed: 02/11/23 16:42> Referrals: [facility] [Provider Group] - 1 week Uday Moseley MD [Primary Care Provider] - 2 days <ELIZABET Carrillo - Last Filed: 02/11/23 16:42> Stand Alone Forms: Work/School Release <ELIZABET Carrillo - Last Filed: 02/11/23 16:42>
[2023-02-11 17:00] LABS: MANUAL DIFF FLAG NO
[2023-02-11 17:21] LABS: Basophils Percent Auto 0.3 % (0-2); Eosinophils Percent Auto 0.4 % (0-4); Hematocrit 39.2 % (42.0-52.0); Hemoglobin 13.5 g/dl (14.0-18.0); Imm Gran Abs Auto 0.04 X10*3/uL (0.00-0.03); Imm Gran Pct Auto 0.4 % (0.0-0.4); Lymphocytes Absolute Auto 1.8 X10*3/uL (1.2-4.9); Lymphocytes Percent Auto 18.3 % (20-40); Mean Corpuscular HGB Conc 34.4 g/dl (31.0-36.0); Mean Corpuscular Hemoglobin 29.9 pg (27.0-33.0); Mean Corpuscular Volume 86.7 fL (80.0-98.0); Mean Platelet Volume 11.6 fL (9.4-12.4); Monocytes Absolute Auto 0.7 X10*3/uL (0.1-1.2); Monocytes Percent Auto 7.1 % (2-11); Neutrophils Absolute Auto 7.3 x10*3/uL (2.0-8.3); Neutrophils Percent Auto 73.5 % (45-73); Platelet Count 216 X10*3/uL (160-400); Red Blood Count 4.52 X10*6/uL (4.60-5.80); Red Cell Distribution Width 13.2 % (11.0-16.0); White Blood Count 9.9 X10*3/uL (4.8-10.8)
[2023-02-11 17:30] LABS: Alanine Aminotransferase 23 U/L (0-40); Albumin Level 4.3 g/dL (3.5-5.0); Alkaline Phosphatase 62 U/L (39-117); Anion Gap 13 (12-20); Aspartate Amino Transferase 19 U/L (5-37); Bilirubin Direct < 0.2 mg/dL (0.0-0.5); Bilirubin Total 0.4 mg/dL (0.0-1.0); Blood Urea Nitrogen 19 mg/dL (9-16); Carbon Dioxide 26 mmol/L (22-29); Chloride 105 mmol/L (96-108); Creatinine Clr Calc Pharmacy 129.4; Estimated Glomerular Filt Rate > 60; Glucose Random 160 mg/dL (60-115); Magnesium 2.1 mg/dL (1.6-2.6); Potassium 3.8 mmol/L (3.3-5.1); Sodium 140 mmol/L (135-145); Total Protein 6.6 g/dL (6.5-8.0)
[2023-02-11 17:38] LABS: Troponin-I High Sensitivity 3.5 ng/L (<3.5-35.0)
[2023-02-11] MEDS: Ketorolac Tromethamine 15 MG/ML VIAL 30 MG IM (19:07)
[2023-02-11 19:11] LABS: B Type Natriuretic Peptide < 10 pg/mL (<100)
[2023-02-11 19:14] VITALS: PULSE 75
[2023-02-11 19:32] VITALS: BP 134/89; PULSE 68; RESP 16; TEMP 36.7; O2SAT 97
[2023-02-11 19:46] LABS: D Dimer High Sensitivity < 150 NG/ML
[2023-02-11 19:58] LABS: COVID-19 Test Negative (Negative); IDNOW Serial# 9DB6401D; IDNOW Serial# BCCEAD1C; Influenza A Negative (Negative); Influenza B2 Negative (Negative)
== END 2023-02-11 20:00 | disposition home or self-care (01) ==
PROVIDERS: Physician Assistant; Emergency Provider Emergency Medicine; PCP Internal Medicine
DX: R07.9 Chest pain, unspecified (principal); R06.02 Shortness of breath; Z20.822 Contact with and (suspected) exposure to COVID-19; E78.5 Hyperlipidemia, unspecified; I10 Essential (primary) hypertension; Z79.899 Other long term (current) drug therapy
CPT/HCPCS: 36415; 71046; 80048; 80076; 83735; 83880; 84484; 85025; 85379; 87502; 87635; 93005; 96372; 99284; 99285; J1885

== ENCOUNTER → 2023-03-05 14:51 | Outpatient (BNVA) | payer SELFPAY | PROVIDERS: PCP Internal Medicine; Visit Provider Internal Medicine | DX: Z02.79 Encounter for issue of other medical certificate (principal) ==

== ENCOUNTER 2023-06-12 08:57 | Outpatient (REF) | payer MEDICAID, SELFPAY ==
--- NOTE | ~2023-06-12 | XR_ITS ---
EXAMINATION: XR KNEE, LEFT CLINICAL INFORMATION: Pain. COMPARISON: None available. TECHNIQUE: Two views of the left knee. FINDINGS: No acute fractures or subluxation. No significant degenerative changes. Small joint effusion. No abnormal soft tissue calcifications. XR/XR knee LT 2V IMPRESSION: 1. No acute fractures or subluxation. 2. Small joint effusion. If symptoms persist, correlation with an MRI or CT could be obtained as clinically indicated.
== END 2023-06-12 08:58 | disposition home or self-care (01) ==
LOC: HO.XRAY 08:57
PROVIDERS: PCP Internal Medicine; Visit Provider Internal Medicine
DX: M25.562 Pain in left knee (principal); G89.29 Other chronic pain
CPT/HCPCS: 73560

== ENCOUNTER 2023-06-12 10:27 | Outpatient (REF) | payer MEDICAID, SELFPAY ==
[2023-06-12 15:39] LABS: Alanine Aminotransferase 25 U/L (0-40); Albumin Level 4.3 g/dL (3.5-5.0); Alkaline Phosphatase 67 U/L (39-117); Anion Gap 14 (12-20); Aspartate Amino Transferase 19 U/L (5-37); Bilirubin Total 0.5 mg/dL (0.0-1.0); Blood Urea Nitrogen 14 mg/dL (9-16); Calcium 9.1 mg/dL (8.4-10.2); Carbon Dioxide 22 mmol/L (22-29); Chloride 108 mmol/L (96-108); Cholesterol 243 mg/dL; Estimated Glomerular Filt Rate > 60; Glucose Fasting 103 mg/dL (60-99); HDL Cholesterol 33 mg/dL; Sodium 140 mmol/L (135-145); Triglycerides 593 mg/dL
== END 2023-06-12 10:28 | disposition home or self-care (01) ==
LOC: HO.CHCLDS 10:27
PROVIDERS: Visit Provider Internal Medicine
DX: E78.1 Pure hyperglyceridemia (principal)
CPT/HCPCS: 36415; 80053; 80061

== ENCOUNTER 2023-09-15 08:01 | Emergency (ER) | payer MEDICAID, SELFPAY ==
--- NOTE | 2023-09-15 08:02 | ECG_ITS ---
Test Reason : cp Blood Pressure : / mmHG Vent. Rate : 067 BPM Atrial Rate : 067 BPM P-R Int : 160 ms QRS Dur : 090 ms QT Int : 376 ms P-R-T Axes : 055 027 025 degrees QTc Int : 397 ms Normal sinus rhythm Normal ECG When compared with ECG of 11-FEB-2023 16:43, No significant change was found Referred By: Generic ED Physician Electronically Signed By:ARLENE RUBY MD
[2023-09-15 08:09] VITALS: BP 125/66; PULSE 62; RESP 18; TEMP 36.7; O2SAT 98; BMI 30.7
[2023-09-15 08:22] LABS: MANUAL DIFF FLAG NO
[2023-09-15 08:24] LABS: Basophils Percent Auto 0.3 % (0-2); Eosinophils Absolute Auto 0.1 X10*3/uL (0.0-0.4); Eosinophils Percent Auto 0.9 % (0-4); Hematocrit 40.5 % (42.0-52.0); Hemoglobin 13.8 g/dl (14.0-18.0); Imm Gran Abs Auto 0.02 X10*3/uL (0.00-0.03); Imm Gran Pct Auto 0.3 % (0.0-0.4); Lymphocytes Absolute Auto 1.4 X10*3/uL (1.2-4.9); Lymphocytes Percent Auto 18.5 % (20-40); Mean Corpuscular HGB Conc 34.1 g/dl (31.0-36.0); Mean Corpuscular Hemoglobin 30.1 pg (27.0-33.0); Mean Corpuscular Volume 88.2 fL (80.0-98.0); Mean Platelet Volume 11.2 fL (9.4-12.4); Monocytes Absolute Auto 0.6 X10*3/uL (0.1-1.2); Monocytes Percent Auto 7.5 % (2-11); Neutrophils Absolute Auto 5.5 x10*3/uL (2.0-8.3); Neutrophils Percent Auto 72.5 % (45-73); Platelet Count 205 X10*3/uL (160-400); Red Blood Count 4.59 X10*6/uL (4.60-5.80); Red Cell Distribution Width 13.2 % (11.0-16.0); White Blood Count 7.6 X10*3/uL (4.8-10.8)
[2023-09-15 08:39] LABS: Anion Gap 12 (12-20); Blood Urea Nitrogen 18 mg/dL (9-16); Calcium 9.3 mg/dL (8.4-10.2); Carbon Dioxide 25 mmol/L (22-29); Chloride 108 mmol/L (96-108); Creatinine Clr Calc Pharmacy 130.5; Estimated Glomerular Filt Rate > 60; Glucose Random 195 mg/dL (60-115); Potassium 4.1 mmol/L (3.3-5.1); Sodium 141 mmol/L (135-145)
[2023-09-15 08:47] LABS: Troponin-I High Sensitivity 3.4 ng/L (<3.5-35.0)
[2023-09-15] MEDS: Lidocaine HCl Viscous 2 % 15 ML SOLUTION 10 ML MUCOUS MEM (10:46)
[2023-09-15] MEDS: Magnesium Hydrox/Alum Hydrox 30 ML ORAL.SUSP PO (10:46)
--- NOTE | 2023-09-15 11:16 | ED.CHESTPAIN ---
HPI - Chest Pain General Chief Complaint: Chest Pain Stated Complaint: chest pain Time Seen by Provider: 09/15/23 09:18 Source: patient Mode of arrival: ambulatory History of Present Illness HPI narrative: 38-year-old male without significant past medical history and reports mid chest discomfort since Thursday without dizziness but he reports headache and some nausea but otherwise denies any abdominal pain or diarrhea and denies any urinary symptoms. He also denies any new cough or sore throat. Related Data Previous Rx's Medication Instructions Recorded ibuprofen 600 mg tablet 600 mg PO Q6H PRN pain #30 tabs 09/03/20 doxycycline monohydrate 100 mg 100 mg PO BID #14 caps 12/27/20 capsule fluticasone propionate 50 1 spray intranasal Q12H #16 grams 12/27/20 mcg/actuation nasal spray,suspension (Flonase Allergy Relief) ibuprofen 600 mg tablet 600 mg PO Q6H PRN pain #20 tabs 12/27/20 drxykxcezi-fsfuegfquggcx-xvizcygw 1 cap PO Q6H PRN headache #20 caps 01/23/21 50 mg-300 mg-40 mg capsule (Fioricet) sumatriptan succinate 50 mg tablet See Rx Instructions PO .COMPLEX #7 01/23/21 (Imitrex) tabs scjojhvvdt-oqgajggpwmmce-ohemlynt 1 cap PO Q8H PRN pain #14 caps 01/31/21 50 mg-300 mg-40 mg capsule (Fioricet) doxycycline monohydrate 100 mg 100 mg PO BID 7 days #14 caps 01/31/21 capsule famotidine 20 mg tablet (Pepcid) 20 mg PO BID 7 days #14 tabs 05/31/21 hydroxyzine HCl 25 mg tablet 25 mg PO TID PRN itching #21 tabs 05/31/21 prednisone 20 mg tablet 40 mg (2 x 20 mg) PO DAILY 5 days 05/31/21 #10 tabs metoclopramide HCl 10 mg tablet 10 mg PO Q6H PRN nausea and 07/11/21 (Reglan) vomiting #14 tabs cyclobenzaprine 10 mg tablet 10 mg PO BEDTIME PRN muscle spasm 02/11/23 #7 tabs ketorolac 10 mg tablet 10 mg PO TID PRN pain 5 days #15 02/11/23 tabs prednisone 20 mg tablet 40 mg (2 x 20 mg) PO DAILY 5 days 02/11/23 #10 tabs Allergies Allergy/AdvReac Type Severity Reaction Status Date / Time penicillin V Allergy Unknown rash Verified 09/15/23 08:13 Penicillins [PENICILLINS] Allergy Unknown RASH Verified 09/15/23 08:13 pravastatin Allergy Unknown chest Verified 09/15/23 08:13 pain, constipation Review of Systems Review of Systems: Pertinent positives and negatives as stated in [facility] Past Medical History Source: nursing notes reviewed Medical History High cholesterol HTN (hypertension), benign Sinus congestion Migraines Asthma Costochondritis Surgical History No significant past surgical history Social History Social History Alcohol intake: never Advance Directives: No Advance Directives Information Provided: No Physical Exam Vital Signs: Vital Signs: Last Vital Signs Temp 98.0 F 09/15/23 08:09 Pulse 62 09/15/23 08:09 Resp 18 09/15/23 08:09 BP 125/66 09/15/23 08:09 Pulse Ox 98 09/15/23 08:09 O2 Del Method Room Air 09/15/23 08:09 BMI result Body Mass Index 30.7 VITAL SIGNS: Reviewed. GENERAL: Well developed, well nourished, in no acute distress. HEAD: Normocephalic/atraumatic EYES: PERRLA, EOMI EARS: Ext canals without abnormality, TMs non-bulging and non-erythematous NOSE: Nares patent bilateral OROPHARYNX: no oral lesions noted, posterior pharynx clear and non-erythematous without noted tonsillar enlargement/erythema/exudates NECK: Supple, no adenopathy LUNGS: Normal breath sounds. No adventitious sounds or accessory muscle use. SpO2<98> CARDIOVASCULAR: Regular rate and rhythm without noted murmurs, no JVD or lower extremity edema. ABDOMEN: Soft, non-tender, non-distended with bowel sounds. MUSCULOSKELETAL: No tenderness, deformities, or effusions noted on gross inspection. EXTREMITIES: No cyanosis, clubbing or edema. SKIN: Inspection of the skin reveals no rashes NEUROLOGIC: Alert and oriented x 4. Strength and sensation to light touch were grossly intact x 4. Medications Administered Discontinued Medications Generic Name Dose Route Start Last Admin Trade Name Christine PRN Reason Stop Dose Admin Al Hydroxide/Mg Hydroxide 30 ml 09/15/23 10:22 09/15/23 10:46 Magnesium Hydrox/Alum Hydrox 30 Ml Oral.Susp PO 09/15/23 10:23 30 ml ONCE ONE Administration Lidocaine HCl 10 ml 09/15/23 10:22 09/15/23 10:46 Lidocaine Hcl Viscous 2 % 15 Ml Solution MUCOUS MEM 09/15/23 10:23 10 ml ONCE ONE Administration Medical Decision Making Medical Decision Making [facility] Narrative: 38-year-old male with history and clinical presentation, DDX: Musculoskeletal, acid reflux, low clinical suspicion for any primary ACS/pneumonia/gastritis and PERC negative. I reviewed all investigations and hematologic indices are negative for leukocytosis or left shift, no thrombocytopenia and patient has a chronically stable normocytic anemia. Chemistry indices do not demonstrated JASON have there is no electrolyte or elevated high sensitivity troponin. I sensitivity troponin is detectable but same as previously when seen in February. There are no acute changes on EKG. Patient was given GI cocktail and on re-evaluation states that he feels much better. Viral testing negative for evidence of COVID-19 or influenza. My interpretation is patient has GERD and he is instructed to follow-up with his primary care doctor it is earliest convenience. Differential Diagnosis Differential Diagnoses: The differential diagnosis associated with the presentation includes Please see the discussion above Admission/Observation Consideration of admission/observation: Escalation of care including admission/observation considered Please see the discussion above Lab Data [facility] Lab Attestation statement: I reviewed the patient's lab results. Please see the discussion above 09/15/23 08:18 09/15/23 08:18 Labs: Lab Results 09/15/23 09/15/23 Range/Units 08:18 11:00 WBC 7.6 (4.8-10.8) X10*3/uL RBC 4.59 L (4.60-5.80) X10*6/uL Hgb 13.8 L (14.0-18.0) g/dl Hct 40.5 L (42.0-52.0) % MCV 88.2 (80.0-98.0) fL MCH 30.1 (27.0-33.0) pg MCHC 34.1 (31.0-36.0) g/dl RDW 13.2 (11.0-16.0) % Plt Count 205 (160-400) X10*3/uL MPV 11.2 (9.4-12.4) fL Immature Gran % (Auto) 0.3 (0.0-0.4) % Neut % (Auto) 72.5 (45-73) % Lymph % (Auto) 18.5 L (20-40) % [place] % (Auto) 7.5 (2-11) % Eos % (Auto) 0.9 (0-4) % Baso % (Auto) 0.3 (0-2) % Lymph # (Auto) 1.4 (1.2-4.9) X10*3/uL [place] # (Auto) 0.6 (0.1-1.2) X10*3/uL Eos # (Auto) 0.1 (0.0-0.4) X10*3/uL Baso # (Auto) 0.0 (0.0-0.2) X10*3/uL Abs Immat Gran (auto) 0.02 (0.00-0.03) X10*3/uL Absolute Neuts (auto) 5.5 (2.0-8.3) x10*3/uL Absolute Nucleated RBC 0.000 (0.0-0.012) X10*3/uL Nucleated RBC % (auto) 0.0 (0.0-0.2) /100WBC Sodium 141 (135-145) mmol/L Potassium 4.1 (3.3-5.1) mmol/L Chloride 108 (96-108) mmol/L Carbon Dioxide 25 (22-29) mmol/L Anion Gap 12 (12-20) BUN 18 H (9-16) mg/dL Creatinine 0.87 (0.5-1.4) mg/dL Estim Creat Clear Calc 130.5 Estimated GFR > 60 Random Glucose 195 H (60-115) mg/dL Calcium 9.3 (8.4-10.2) mg/dL Troponin I High Sens 3.4 (<3.5-35.0) ng/L COVID-19 (MAYA) Negative (Negative) COVID-19 Clin Com See Note Influenza Type A (JERICA) Negative (Negative) Influenza Type B (JERICA) Negative (Negative) Influenza A & B Note See Note Independent Interpretation I performed an independent interpretation of an: EKG Interpretation: Normal sinus rhythm, HR-67, no STEMI, OR/QRS/QTC is within normal limits. There are no acute changes when compared to 02/11/2023. External Record Review External record reviewed: Outpatient record, Prior outpatient labs and Prior outpatient radiology Critical Care Time Critical Care Time Critical Care Time: Yes Total Critical Care Time: 30 Attestation: I personally attest to this time spent taking care of the patient. Discharge Plan Discharge Clinical Impression: GERD (gastroesophageal reflux disease), Atypical chest pain Patient Disposition: Home, Self-Care Instructions: Diet for Stomach Ulcers and Gastritis (ED), Gastroesophageal Reflux Disease (ED), Indigestion (ED) Additional Instructions: 1. Hema un seguimiento con calhoun proveedor de atenci?n primaria. Regrese a la maureen de emergencias si tiene s?ntomas nuevos o que empeoran. 1. Follow-up with your primary care provider. Return to the ER if you have new or worsening symptoms. Prescriptions: No Action ibuprofen 600 mg tablet 600 mg PO Q6H PRN (Reason: pain) Qty: 30 0RF doxycycline monohydrate 100 mg capsule 100 mg PO BID Qty: 14 0RF fluticasone propionate [Flonase Allergy Relief] 50 mcg/actuation spray,suspension 1 spray intranasal Q12H Qty: 16 0RF Rx Instructions: administer into each nostril ibuprofen 600 mg tablet 600 mg PO Q6H PRN (Reason: pain) Qty: 20 0RF metoclopramide HCl [Reglan] 10 mg tablet 10 mg PO Q6H PRN (Reason: nausea and vomiting) Qty: 14 0RF sumatriptan succinate [Imitrex] 50 mg tablet See Rx Instructions .ROUTE .COMPLEX Qty: 7 0RF Rx Instructions: take 1 tab at onset of headache; if no relief may repeat 1 tab after at least 2 hrs; max = 2 tabs/24 hr ywkqspzgwv-fvheghcojkrpx-owry [Fioricet] 50-300-40 mg capsule 1 cap PO Q6H PRN (Reason: headache) Qty: 20 0RF duppexmjdk-vndimqxkqwsuz-shzo [Fioricet] 50-300-40 mg capsule 1 cap PO Q8H PRN (Reason: pain) Qty: 14 0RF doxycycline monohydrate 100 mg capsule 100 mg PO BID 7 Days Qty: 14 0RF prednisone 20 mg tablet 40 mg PO DAILY 5 Days Qty: 10 0RF famotidine [Pepcid] 20 mg tablet 20 mg PO BID 7 Days Qty: 14 0RF hydroxyzine HCl 25 mg tablet 25 mg PO TID PRN (Reason: itching) Qty: 21 0RF cyclobenzaprine 10 mg tablet 10 mg PO BEDTIME PRN (Reason: muscle spasm) Qty: 7 0RF prednisone 20 mg tablet 40 mg PO DAILY 5 Days Qty: 10 0RF ketorolac 10 mg tablet 10 mg PO TID PRN (Reason: pain) 5 Days Qty: 15 0RF Referrals: Uday Moseley MD [Primary Care Provider] - Print Language: Korean
[2023-09-15 11:24] LABS: IDNOW Serial# BCCEAD1C
[2023-09-15 11:25] LABS: COVID-19 Test Negative (Negative); IDNOW Serial# 9DB6401D; Influenza A Negative (Negative); Influenza B2 Negative (Negative)
== END 2023-09-15 12:38 | disposition home or self-care (01) ==
PROVIDERS: Emergency Provider Student in an Organized Health Care Education/Training Program; PCP Internal Medicine
DX: K21.9 Gastro-esophageal reflux disease without esophagitis (principal); R07.89 Other chest pain; Z11.52 Encounter for screening for COVID-19; R51.9 Headache, unspecified; I10 Essential (primary) hypertension; E78.00 Pure hypercholesterolemia, unspecified; Z79.899 Other long term (current) drug therapy
CPT/HCPCS: 36415; 80048; 84484; 85025; 87502; 87635; 93005; 99283; 99284

== ENCOUNTER 2024-03-02 13:24 | Outpatient (REF) | payer MEDICAID, SELFPAY ==
[2024-03-02 14:56] LABS: Appearance Urine Clear; Color Urine Yellow; Glucose Urine UA Negative (Negative); Leukocyte Esterase Urine Negative (Negative); Nitrite Urine Negative (Negative); PH 6.5 (5.0-9.0); Specific Gravity - Urine >= 1.030 (1.005-1.025); UMIC TRIGGER UACC YES; Urine Blood Trace (Negative); Urine Ketones Negative (Negative); Urine Protein Negative (Neg-Trace)
[2024-03-02 15:03] LABS: Bacteria Urine None Seen (None Seen); Hyaline Casts Urine 0-2 /LPF (0-2); Squamous Epithelial Cell Urine 0-2 /HPF (0-2); WBC Urine 0-5 /HPF (0-5)
[2024-03-02 15:46] LABS: Alanine Aminotransferase 24 U/L (0-40); Albumin Level 4.4 g/dL (3.5-5.0); Alkaline Phosphatase 56 U/L (39-117); Anion Gap 12 (12-20); Aspartate Amino Transferase 18 U/L (5-37); Bilirubin Total 0.4 mg/dL (0.0-1.0); Blood Urea Nitrogen 25 mg/dL (9-16); Calcium 9.1 mg/dL (8.4-10.2); Carbon Dioxide 23 mmol/L (22-29); Chloride 107 mmol/L (96-108); Estimated Glomerular Filt Rate > 60; Glucose Random 91 mg/dL (60-115); Sodium 138 mmol/L (135-145); Total Protein 7.6 g/dL (6.5-8.0)
[2024-03-02 15:54] LABS: TSH reflex Free T4 1.56 uIU/mL (0.32-4.0)
== END 2024-03-02 13:25 | disposition home or self-care (01) ==
LOC: HO.CHCLDS 13:24
PROVIDERS: Visit Provider Internal Medicine
DX: E16.2 Hypoglycemia, unspecified (principal); F41.9 Anxiety disorder, unspecified
CPT/HCPCS: 36415; 80053; 81001; 84443

== ENCOUNTER 2024-05-18 09:02 | Emergency (ER) | payer MEDICAID, SELFPAY ==
[2024-05-18 09:14] VITALS: BP 145/85; PULSE 70; RESP 16; TEMP 36.9; O2SAT 98; BMI 29.5
--- NOTE | 2024-05-18 09:29 | ED.GENADULT ---
HPI - General Adult General Chief complaint: Headache Stated complaint: sinus, headache Time Seen by Provider: 05/18/24 09:28 Source: patient and php developer (all interactions with this patient were facilitated via an [facility] neuropsychology division chief) Mode of arrival: ambulatory Limitations: language barrier (all interactions with this patient were facilitated via an [facility] neuropsychology division chief) History of Present Illness ED Provider: Cheryl Espinal PA-C HPI narrative: Patient is a 39 year old assigned male at with a history of depression presenting to the emergency department today with sinus pain, right ear pain, and a headache. Patient states that over the last 2 weeks he has had sinus pressure, right ear pain, and a headache. Patient denies any dizziness, lightheadedness, abdominal pain, nausea, vomiting, fever, chills, blurry vision, double vision, loss of vision, chest pain, difficulty breathing, shortness of breath, back pain, night sweats, pain with urination, increased urinary frequency, increased urinary urgency, blood in his urine or stool, syncope or a near syncopal episode, recent trauma or falls, bowel incontinence, bladder incontinence, or any other complaints at this time. Onset (ago): week(s) (2) Severity: mild Severity scale (1-10): 4 Quality: aching Pain Consistency: constant Relieving factors: none Exacerbating factors: none Associated symptoms: denies other symptoms Treatments prior to arrival: none Related Data Previous Rx's ?Medication ?Instructions ?Recorded ibuprofen 600 mg tablet 600 mg PO Q6H PRN pain #30 tabs 09/03/20 doxycycline monohydrate 100 mg 100 mg PO BID #14 caps 12/27/20 capsule fluticasone propionate 50 1 spray intranasal Q12H #16 grams 12/27/20 mcg/actuation nasal spray,suspension (Flonase Allergy Relief) ibuprofen 600 mg tablet 600 mg PO Q6H PRN pain #20 tabs 12/27/20 ujqvuwopki-moqlkksmsvcjk-hrcsvtkx 1 cap PO Q6H PRN headache #20 caps 01/23/21 50 mg-300 mg-40 mg capsule (Fioricet) sumatriptan succinate 50 mg tablet See Rx Instructions PO .COMPLEX #7 01/23/21 (Imitrex) tabs veaeezulzb-xqepnxyfufpis-avdfvmmd 1 cap PO Q8H PRN pain #14 caps 01/31/21 50 mg-300 mg-40 mg capsule (Fioricet) doxycycline monohydrate 100 mg 100 mg PO BID 7 days #14 caps 01/31/21 capsule famotidine 20 mg tablet (Pepcid) 20 mg PO BID 7 days #14 tabs 05/31/21 hydroxyzine HCl 25 mg tablet 25 mg PO TID PRN itching #21 tabs 05/31/21 prednisone 20 mg tablet 40 mg (2 x 20 mg) PO DAILY 5 days 05/31/21 #10 tabs metoclopramide HCl 10 mg tablet 10 mg PO Q6H PRN nausea and 07/11/21 (Reglan) vomiting #14 tabs cyclobenzaprine 10 mg tablet 10 mg PO BEDTIME PRN muscle spasm 02/11/23 #7 tabs ketorolac 10 mg tablet 10 mg PO TID PRN pain 5 days #15 02/11/23 tabs prednisone 20 mg tablet 40 mg (2 x 20 mg) PO DAILY 5 days 02/11/23 #10 tabs doxycycline hyclate 100 mg tablet 100 mg PO BID 7 days #14 tabs 05/18/24 Allergies Allergy/AdvReac Type Severity Reaction Status Date / Time penicillin V Allergy Unknown rash Verified 05/18/24 09:16 Penicillins [PENICILLINS] Allergy Unknown RASH Verified 05/18/24 09:16 pravastatin Allergy Unknown chest Verified 05/18/24 09:16 pain, constipation Review of Systems Constitutional: Constitutional: Reports no additional constitutional complaints, Denies chills, Denies fever(s), Reports headache(s) and Denies night sweats Eyes: Eyes: Reports no additional eye complaints, Denies blurry vision, Denies change in vision, Denies diplopia, Denies eye discharge, Denies loss of vision and Denies eye pain ENT: Denies dizziness, Reports headache(s) and Reports sinus pain Comments: right ear pain Cardiovascular: Cardiovascular: Reports no additional cardiovascular complaints, Denies chest pain, Denies lightheadedness, Denies Loss of Consciousness and Denies dyspnea Respiratory: Respiratory: Reports no additional respiratory complaints and Denies dyspnea Gastrointestinal: Gastrointestinal: Reports no additional gastrointestinal complaints, Denies abdominal pain, Denies melena, Denies hematochezia, Denies change in bowel habits and Denies change in stool character Genitourinary: Genitourinary: Reports no additional male genitourinary complaints, Denies hematuria, Denies oliguria, Denies difficulty urinating, Denies dysuria, Denies urinary frequency, Denies urinary hesitancy, Denies urinary incontinence and Denies urinary urgency Musculoskeletal: Musculoskeletal: Reports no additional musculoskeletal complaints, Denies numbness and Denies tingling Neurologic: Denies dizziness, Reports headache(s), Denies loss of vision, Denies numbness and Denies tingling Psychiatric: Psychiatric: Reports no additional psychiatric complaints Endocrine: Endocrine: Reports no additional endocrine complaints Hematologic/Lymphatic: Hematologic/Lymphatic: Reports no additional hematologic/lymphatic complaints Allergic/Immunologic: Allergic/Immunologic: Reports no additional allergic/immunologic complaints [facility] Past Medical History Attestation statement: The following information was validated with the patient. Source: old records reviewed and nursing notes reviewed Medical History High cholesterol HTN (hypertension), benign Sinus congestion Migraines Asthma Costochondritis Surgical History No significant past surgical history Social History Social History Alcohol intake: never Advance Directives: No Advance Directives Information Provided: No Physical Exam ED Vital Signs: Vital Signs - 24 hr 05/18/24 09:14 05/18/24 11:00 05/18/24 11:15 Temperature 98.5 F 98.3 F Pulse Rate 70 62 62 Respiratory Rate 16 16 14 Blood Pressure 145/85 H 136/83 136/83 Pulse Oximetry 98 99 99 Oxygen Delivery Method Room Air Room Air BMI result Body Mass Index 29.5 Const General: cooperative, no acute distress, alert and awake Nutritional Appearance: well nourished Orientation/consciousness: patient oriented x3 Limitations: no limitations HENMT Head: Yes normal to inspection and Yes atraumatic Ears: hearing grossly normal bilaterally and external ears normal General nose exam: Normal external nose present, no nasal discharge noted and no epistaxis Face and sinus: Yes normal facial exam, No abrasion and No laceration Mouth: Normal oral and palatal mucosa present, no drooling and no muffled voice Eyes General: appearance normal, both eyes and all related structures Periorbital: periorbital findings normal Eyelids: Yes eyelids normal Conjunctivae: conjunctivae normal Pupils: Equal, round and reactive pupils present EOM: EOMs intact bilaterally Neck Neck: Yes normal visual inspection, Yes full ROM and Yes no lymphadenopathy Chest Chest palpation & inspection: normal inspection of the chest Resp Effort & Inspection: normal respiratory effort and able to speak in complete sentences GI Inspection: Yes normal to inspection Neuro General: patient oriented x3 and moves all extremities Cranial nerves: Yes Equal, round and reactive pupils present Cognition (Neuro): normal cognition Extrem General: Yes normal to inspection, Yes full ROM and Yes capillary refill normal Psych Appearance: grossly normal Mental Status: mental status grossly normal Affect: normal affect Attitude: cooperative Thought process: Normal thought process present Thought content: Normal thought content present Insight: Good insight present (Psych) Medical Decision Making Medical Decision Making [facility] Narrative: Patient is a 39 year old assigned male at with a history of depression presenting to the emergency department today with a headache, nasal congestion, and right ear pain. Patient's physical exam was unremarkable. Patient's influenza, RSV, and strep tests were negative. Patient's COVID-19 test was positive. I explained my physical exam findings as well as all test results to the patient. I answered all questions asked by the patient. I stressed the importance of the patient taking his medication as directed (either prescribed or as the over the counter packaging recommends). I stressed the importance of the patient following up with his primary care provider. I stressed the importance of the patient returning to the emergency department immediately if his symptoms were to worsen or if he were to develop any dizziness, shortness of breath, difficulty breathing, chest pain, blurry vision, loss of vision, nausea, vomiting, abdominal pain, fever, chills, back pain, or any other complaints. Patient verbalized agreement and understanding with this treatment plan and discharge. Differential Diagnosis Differential Diagnoses: The differential diagnosis associated with the presentation includes Sinusitis COVID-19 Influenza RSV Admission/Observation Consideration of admission/observation: Escalation of care including admission/observation considered Patient would have been admitted to the hospital had his work up had any findings where hospital admission was appropriate and his clinical presentation warranted hospital admission. Lab Data [facility] Lab Attestation statement: I reviewed the patient's lab results. My interpretation of these results are in the [facility] Rationale portion of this note. Labs: Lab Results 05/18/24 Range/Units 09:46 Influenza Type A (PCR) NEGATIVE (Negative) Influenza Type B (PCR) NEGATIVE (Negative) RSV RNA Qual (PCR) NEGATIVE (Negative) SARS-CoV-2 RNA (RT-PCR) POSITIVE A (Negative) S. pyogenes GrpA JERICA Negative (Negative) Prescription Management I considered prescription management with: Antibiotic (patient prescribed an antibiotic for sinusitis) Discharge Plan Discharge Clinical Impression: Sinusitis, COVID-19 Patient Disposition: Home, Self-Care Instructions: Sinusitis (ED), COVID-19 (Coronavirus Disease 2019) (ED) Additional Instructions: Follow up with your primary care provider. Return to the emergency department immediately if your symptoms worsen or if you develop any dizziness, shortness of breath, difficulty breathing, chest pain, blurry vision, loss of vision, nausea, vomiting, abdominal pain, fever, chills, back pain, or any other complaints. Hema?seguimiento?con calhoun m?dico de atenci?n primaria. Acuda inmediatamente al servicio de urgencias si mago s?ntomas empeoran o si presenta falta de aliento, dificultad para respirar, dolor tor?cico, mareos, aturdimiento, dolor de espalda, dolor abdominal, fiebre, escalofr?os o cualquier otro s?ntoma. Prescriptions: New doxycycline hyclate 100 mg tablet 100 mg PO BID 7 Days Qty: 14 0RF No Action ibuprofen 600 mg tablet 600 mg PO Q6H PRN (Reason: pain) Qty: 30 0RF doxycycline monohydrate 100 mg capsule 100 mg PO BID Qty: 14 0RF fluticasone propionate [Flonase Allergy Relief] 50 mcg/actuation spray,suspension 1 spray intranasal Q12H Qty: 16 0RF Rx Instructions: administer into each nostril ibuprofen 600 mg tablet 600 mg PO Q6H PRN (Reason: pain) Qty: 20 0RF metoclopramide HCl [Reglan] 10 mg tablet 10 mg PO Q6H PRN (Reason: nausea and vomiting) Qty: 14 0RF sumatriptan succinate [Imitrex] 50 mg tablet See Rx Instructions .ROUTE .COMPLEX Qty: 7 0RF Rx Instructions: take 1 tab at onset of headache; if no relief may repeat 1 tab after at least 2 hrs; max = 2 tabs/24 hr joimynjbnm-upluvwctwtvtz-qald [Fioricet] 50-300-40 mg capsule 1 cap PO Q6H PRN (Reason: headache) Qty: 20 0RF zewgxszkur-soyftdydayunk-yqig [Fioricet] 50-300-40 mg capsule 1 cap PO Q8H PRN (Reason: pain) Qty: 14 0RF doxycycline monohydrate 100 mg capsule 100 mg PO BID 7 Days Qty: 14 0RF prednisone 20 mg tablet 40 mg PO DAILY 5 Days Qty: 10 0RF famotidine [Pepcid] 20 mg tablet 20 mg PO BID 7 Days Qty: 14 0RF hydroxyzine HCl 25 mg tablet 25 mg PO TID PRN (Reason: itching) Qty: 21 0RF cyclobenzaprine 10 mg tablet 10 mg PO BEDTIME PRN (Reason: muscle spasm) Qty: 7 0RF prednisone 20 mg tablet 40 mg PO DAILY 5 Days Qty: 10 0RF ketorolac 10 mg tablet 10 mg PO TID PRN (Reason: pain) 5 Days Qty: 15 0RF Referrals: Uday Moseley MD [Primary Care Provider] - Interventions: ED Discharge Assessment Last Done: 05/18/24 11:15 Discharge Date/Time: 05/18/24 11:16 Print Language: Thai
[2024-05-18 10:05] LABS: IDNOW Serial# 08D9AD1C; Strep A Nucleic Acid Negative (Negative)
[2024-05-18 10:35] LABS: Influenza A PCR NEGATIVE (Negative); Influenza B PCR NEGATIVE (Negative); Resp Syncy Virus RNA Qual PCR NEGATIVE (Negative); SARS COV2 PCR INHOUSE POSITIVE (Negative)
[2024-05-18 11:00] VITALS: BP 136/83; PULSE 62; RESP 16; O2SAT 99
[2024-05-18 11:15] VITALS: BP 136/83; PULSE 62; RESP 14; TEMP 36.8; O2SAT 99
== END 2024-05-18 11:16 | disposition home or self-care (01) ==
PROVIDERS: Physician Assistant Medical; Emergency Provider Emergency Medicine; PCP Internal Medicine
DX: U07.1 COVID-19 (principal); J32.9 Chronic sinusitis, unspecified; R51.9 Headache, unspecified
CPT/HCPCS: 0241U; 87651; 99282; 99283

== ENCOUNTER 2025-01-11 14:53 | Outpatient (REF) | payer MEDICAID, SELFPAY ==
[2025-01-11 17:55] LABS: MANUAL DIFF FLAG NO
--- OUTSIDE RECORDS SUMMARY | 2025-01-11 18:01 | XMS_ITS | Encounter Summary ---
Author Organization [employer] Address [address] [facility] 7[address] [place] [address] Care Team Providers Care Second Cook And Baker Name Role Phone Uday Moseley MD Primary Care Prov ider Encounter Details Date Type Department Care Team (Latest Contact Info) Description 01/11/2025 Travel Social History Tobacco Use Types Packs/Day Years Used Date Smoking Tobacco: Former Cigarettes 2 11 Smokeless Tobacco: Never Comments:Still smokes 2-3 ci g a week. Depression Answer Date Recorded Patient Health Questionnaire-9 Score 9 03/11/2024 Patient Health Questionnaire-9 Score 9 03/11/2024 Last PHQ-9: Questionnaire Data Not on file 0 03/11/2024 Housing Stability Answer Date Recorded What is your housing situation today? I am not s ure 09/14/[address] you li ve. Do you have problems with any of the following? None of the above 09/14/2023 Food Insecurity Answer Date Recorded Within the past 12 months, y ou worried that your food would run out before you got money to buy more: Never True 09/14/2023 Within the past 12 months,th e food you bought just didn't last and you didn't have enough money to get more: Never True 04/2023 Transportation Answer Date Recorded In the past 12 months, has l ack of transportation kept you from medical appts, meetings, work or from getting things needed for daily living? No 09/14/2023 Utilities Answer Date Recorded In the past 12 months, has t he electric, gas, oil or water company threatened to shut off services in your home? No 09/14/2023 Depression Answer Date Recorded Patient Health Questionnaire-2 Score 3 03/11/2024 Sex and Gender Information Value Date Recorded Sex Assigned at Male 09/08/2022 10:19 AM EDT Legal Sex Male 10:19 AM EDT Gender Identity Male 09/08/2022 10:19 AM EDT Sexual Orientation Straight 09/08/2022 10 :19 AM EDT documented as of this encounter Plan of Treatment Upcoming Encounters Date Type Department Care Team ([facility] st Contact Info) Description 03/27/2025 9:00 AM EDT Office Visit [facility] MED & PEDS [address] [place] [address] Uday Moseley MD [address] [place] [address] documented as of this encounter Visit Diagnoses Not on filedocumented in this encounter Additional Health Concerns Assessment Noted Time PHQ-9 Depression Total Score: 9 03/11/20 24 8:29 AM EDT documented as of this encounter Care Teams Second Cook And Baker Relationship Specialty Start Date End Date Uday Moseley MD [address] [place] [address] PCP - General Internal Medicine 12/20/19 documented as of this encounter
--- OUTSIDE RECORDS SUMMARY | 2025-01-11 18:02 | XMS_ITS | Clinical Summary ---
Author Organization [employer] Address [address] [facility] 7t [place] [address] Care Team Providers Care Actuarial Science Professor Name Role Phone Uday Moseley MD Primary Care Prov ider Allergies Active Allergy Reactions Criticality Noted Date Comments Penicillins Unknown Pravastatin 05/18/2024 Other Reaction(s): chest pain, constipation Medications * This document contains information received from the source organization and may not represent a complete record from that organization. amitriptyline (Elavil) 25 MG tablet Take 1 tablet (25 mg) by mouth at bedtime. 30 tablet 2 12/31/19 24 Active SUMAtriptan (Imitrex) 50 MG tablet Take 1 tablet (50 mg) by mouth 1 (one) time if needed for migraine for up to 30 doses. May repeat dose once in 2 hours if no relief. Do not exceed 2 doses in 24 hours. 30 tablet 01/15/20 24 Active naproxen (Naprosyn) 500 MG tablet TAKE 1 TABLET BY MOUTH TWICE A DAY 60 tablet 02/01/20 24 Active atorvastatin (Lipitor) 20 MG tablet TOME ERIN TABLETA TODOS LOS D Active cetirizine (ZyrTEC) 10 MG tablet Take 1 tablet (10 mg) by mouth Once per day. 30 tablet 11 03/21/20 24 025 Active azelastine (Astelin) 0.1 % nasal spray Administer 1 spray into each nostril 2 times daily. Use in each nostril as directed 30 mL 12 03/21/20 24 025 Active doxycycline (Vibra-Tabs) 100 MG tablet TOME ERIN TABLETA POR V A ORAL DOS VECES AL D A FOR 7 DAYS 05/18/20 24 Active salicylic acid-lactic acid (Compound W) 17 % external solutionIndica tions:Plantar wart of left foot Apply topically 2 times daily. 15 mL 3 07/04/20 24 Active omeprazole (PriLOSEC) [address] capsuleIndicat ions:Gastroeso phageal reflux disease without esophagitis Take 1 capsule (20 mg) by mouth before breakfast. Do not crush or chew. 90 capsule 01/12/20 25 Active simethicone (Mylicon) 80 MG tabletIndicati ons:Gastroesop hageal reflux disease without esophagitis Take 1 tablet (80 mg) by mouth every 6 (six) hours if needed (bloating). 120 tablet 01/12/20 25 Active omeprazole (PriLOSEC) [address] capsule Take 1 capsule (20 mg) by mouth before breakfast. Do not crush or chew. 90 capsule 02/16/20 24 025 Discontinued(Re order (will not trigger notification to Pharmacy)) Active Problems Problem Noted Date Diagnosed Date Atypical chest pain 07/04/2024 Chest wall pain 07/04/2024 Bilateral hand pain 07/04/2024 GERD (gastroesophageal reflux disease) HTN (hypertension), benign 07/04/2024 Impacted ear wax 07/04/2024 Laceration of scalp 07/04/2024 Acute costochondritis 07/04/2024 Poison jared dermatitis 07/04/2024 Mild depression 03/11/2024 Severe anxiety 03/11/2024 Assessment & Plan (03/11/2024 8:55 AM EDT): PROGRESS NOTE: ID: Antione is a 38 y.o. straight-identified cis-male with No previous hx of MH dx or sx No previous hx of MH services who presents for Anxiety and Depression. Lives with , children, father, sister in law and niece. During IBH Consult Antione presenting with depressed mood, loss of interests/pleasure , changes in sleep difficulty falling asleep and difficulty staying asleep , psychomotor agitation, worthlessness , passive suicidal ideation w/o plan and excessive worry/anxiety, difficulty controlling worry, restless/keyed up/On edge, easily fatigued, difficulty concentrating/Mind going blank , irritability, muscle tension, and sleep disturbance difficulty falling asleep and difficulty staying asleep ; for a period of 0-6 mo, for all symptoms in the context of was laid off on 11/05/23, financial struggle and stress relationship with oldest son . PLAN: New/Additional Services needed Off-site services for Behavioral Health Integration Plan External OP therapy referral Patient Self Plan Patient to utilize skills provided in intervention , [facility], Patient to engage in OP therapy , and Patient to reach out to [facility] as needed Intractable chronic migraine without aura and without status migrainosus 12/31/2023 Assessment & Plan (01/15/2024 10:09 AM EST): Much better with daily amitriptyline, continue current treatment, follow up in 3-4 months Assessment & Plan (12/31/2023 9:04 AM EST): Will prescribe amitryptiline as daily therapy and will send naproxen/sumatriptan as abortive therapy, will follow up in 2 weeks, he refers having more anxiety lately Chronic pain of left knee 06/09/2023 Assessment & Plan (06/09/2023 12:22 PM EDT): Denied recent trauma, refers knee getting swollen, no erythema, mild tenderness, will order a left knee xray Hypertriglyceridemia 04/01/2023 Assessment & Plan (06/09/2023 12:09 PM EDT): Patient has not been taking atorvastatin, refers eating healthier, more fish/vegetables, will place new labs orders for further assesment Assessment & Plan (04/01/2023 9:58 AM EDT): Patient with severe hypertriglyceridemia, refers taking statin therapy, nut not every day, will order new labs, depending on results may be started on vascepa. Denied abdominal pain or nausea/vomiting. Mixed hyperlipidemia 12/18/2022 Assessment & Plan (12/18/2022 1:27 PM EST): On atorvastatin 40mg, patient has been trying diet and exercise, will place order for new labs for guidance of therapy Palpitation 12/18/2022 Assessment & Plan (12/18/2022 1:28 PM EST): Patient complains of palpitations and episode of chest pain at night, he was followed by cardiolgy, will place new referal Dietary counseling 12/18/2022 Allergic rhinitis 09/09/2012 Chronic back pain 09/09/2012 Dyslipidemia 09/09/2012 Lumbar radiculopathy 09/09/2012 Migraine 09/09/2012 Pre-hypertension 09/09/2012 Tobacco dependence syndrome 09/09/2012 Encounters Date Type Department Care Team Description 01/11/2025 2:15 PM EST Office Visit [facility] MED & PEDS [address] [place] [address] Jackelin Kuo MD Gastroesophageal reflux disease without esophagitis (Primary Dx); Prediabetes 01/11/2025 Travel 01/10/2025 Telephone [facility] MED [facility] [address] [place] [address] Uday Moseley MD Nurse Triage 10/25/2024 Telephone [facility] [address] [place] [address] Uday Moseley MD 10/25/2024 Telephone [facility] [address] [place] [address] Uday Moseley MD 10/25/2024 Travel from Last 3 Months Immunizations Name Administration Dates Next Due Influenza Injectable Quadriv alant Preservative Free IIV4 MDCK 09/12/2019,11/22/2018 Influenza injectable quadrivalent preservative f ree 07/26/2021,10/22/2020 Influenza, IIV3, injectable 11/13/2011, 8 Influenza, Split (incl. purified surface antigen ) 07/22/2012 Pfizer Covid-19 Vaccine 12+ 07/26/2021 Tdap 12/11/2021,11/13/2011 Family History Medical History Relation Name Comments Hypertension Father Stomach cancer Father's Brother Diabetes Mother Hypertension Mother Relation Name Status Comments Father Father's Brother Mother Social History Tobacco Use Types Packs/Day Years Used Date Smoking Tobacco: Former Cigarettes 2 11 Smokeless Tobacco: Never Tobacco Cessation:Counseling Given: Not Answered Comments:Still smokes 2-3 cig a week. Depression Answer Date Recorded Patient [...] Orientation Straight 09/08/2022 10 :19 AM EDT Last Filed Vital Signs Vital Sign Reading Time Taken Comments Blood Pressure 146/87 01/11/2025 2:22 PM EST Pulse 84 01/11/2025 2:22 PM EST Temperature 36.7 ??C (98 ??F) 01/11/2025 2:22 PM EST Respiratory Rate 20 01/11/2025 2:22 PM EST Oxygen Saturation 97% 01/11/2025 2:22 PM EST Inhaled Oxygen Concentration - - Weight 99.3 kg (219 lb) 01/11/2025 2:22 PM EST Height 172 cm (5' 7.72 ) 01/11/2025 2:22 PM EST Body Mass Index 33.57 01/11/2025 2:22 PM EST Plan of Treatment Upcoming Encounters Date Type Department Care Team ([facility] st Contact Info) Description 03/27/2025 9:00 AM EDT Office Visit [facility] MED & PEDS [address] [place] [address] Uday Moseley MD [address] [place] [address] Health Maintenance Due Date Last Done Comments Alcohol/Substance Use Screening 1997 Family Planning (PISQ) 2000 Hepatitis A Vaccines (1 of 2 - Risk 2-dose series) 2004 Hepatitis B Vaccines (1 of 3 - 19+ 3-dose series) 2004 SDOH Screening 04/01/2024 04/01/2023 COVID-19 Vaccine ( - season) 2024 07/26/2021 Influenza Vaccine (#1) 2024 , 10/22/2020, 09/12/2019, Additional history exists Depression Monitoring (PHQ-9) 09/11/2024 03/11/2024, 03/11/2024 Depression Screening 03/11/2025 03/11/2024, 03/11/20 Diabetes: Hemoglobin A1C 01/11/2026 025, 03/02/2024, 09/16/2022, Additional history exists Tobacco Screening 01/11/2026 01/11/2025 Lipid Panel 06/12/2028 06/12/2023, 01/2023, 09/16/2022, Additional history exists DTaP/Tdap/Td Vaccines (3 - Td or Tdap) 12/11/2031 12/11/2021, 11/13/2011 Zoster Vaccines (1 of 2) 2035 RSV Patients and Patients Aged 60 years or older (1 - 1-dose 75+ series) 2060 HIV Screening Completed 02/09/2023, 06/2022, 12/20/2019 Hepatitis C Screening Completed 02/09/2023, 022 HIB Vaccines Aged Out No longer eligi ble based on patient's age to complete this topic HPV Vaccines Aged Out No longer eligi ble based on patient's age to complete this topic IPV Vaccines Aged Out No longer eligi ble based on patient's age to complete this topic Meningococcal Vaccine Aged Out No davina que eligible based on patient's age to complete this topic Pneumococcal Vaccine: Pediatrics (0 to 5 Years) and At-Risk Patients (6 to 49) Years) Aged Out No longer eligible based on patient's age to complete this topic RSV under 20 months Aged Out No longe r eligible based on patient's age to complete this topic Rotavirus Vaccines Aged Out No longer eligible based on patient's age to complete this topic Procedures Procedure Name Priority Date/Time Associated Diagnosis Comments POCT GLUCOSE Routine 01/11/2025 3:02 PM EST Prediabetes POCT GLYCATED HEMOGLOBIN, TOTAL Routine 01/11/2025 3:01 PM EST Prediabetes LIPID PANEL, STANDARD Routine 06/12/2023 10:30 AM EDT Hypertriglyceridemia HEPATITIS C AB W/REFL TO HCV RNA, QN, PCR Routine 02/09/2023 8:19 AM EDT Mixed hyperlipidemia HIV 1 RNA, QN PCR W/RFL RAY (RTI,PI,INTEGRASE) Routine 02/09/2023 8:19 AM EDT Mixed hyperlipidemia from Last 3 Months or Most Recently Relevant to Health Maintenance Results * POCT Glucose (01/11/2025 3:02 PM EST) Glucose Blood, POC 89 60 - 200 mg/dL QC Media Lot # [id number] Lot# Expiration Date [id number] Comment:random Blood Capillary blood specimen / Unknown 01/11/2025 3:02 PM EST Jackelin Kuo MD POINT OF CARE TEST ENTER/ED IT ORDERABLES Final Result * (ABNORMAL) POCT HGB A1C (01/11/2025 3:01 PM EST) Pathologist [facility] Hemoglobin A1C 6.1(A) 4.0 - 6.0 % QC Media Lot # [id number] Lot# Expiration Date Blood 01/11/2025 3:01 PM EST us Jackelin Kuo MD POINT OF CARE TEST ENTER/ED IT ORDERABLES Final Result * Lipid Panel, Standard (06/12/2023 10:30 AM EDT) [facility] Triglycerides 593 mg/dL [facility] Comment:Desirable Triglyceri de: less than 150 mg/dLBorderline High Triglyceride 150-199 mg/dLHigh Triglyceride: 200-499 mg/dLVery High Triglyceride: greater than or equal to 5OO mg/dL Cholesterol 243 mg/dL [facility] Comment:Desirable Cholestero l: less than 200 mg/dLBorderline High Cholesterol: 200-239 mg/dLHigh Cholesterol: greater than 239 mg/dL LDL Cholesterol Calculated TNP mg/dl [facility] Comment:Unable to calculate the LDL. The formula of Friedwald,Serna, and Miracle is only valid if the triglycerides areless than 400 mg/dl. HDL Cholesterol 33 mg/dL [facility] Comment:Desirable HDL: great er than 40 mg/dL Note: This HDL assay may give artificially low results in patients with liver disease. Blood Venous blood specimen / Unknown 06/12/2023 10:30 AM EDT 06/12/2023 2:26 PM EDT us Uday Schreiber MD LAB BLOOD ORDERABL ES Final Result [facility] [address] [place] [phone] * HIV-1 RNA, Quantitative, Real-Time PCR with Reflex to Genotype (RTI, PI, Integrase) (02/09/2023 8:19 AM EDT) HIV 1 RNA, QN PCR NOT DETECTED copies/mL [facility], HIV 1 RNA, QN PCR NOT DETECTED Log copies/mL [facility], Comment: REFERENCE RANGE: NOT DETECTED copies/mL ?NOT DETECTED ??Log copies/mL This test was performed using Real-Time Polymerase Chain Reaction. Reportable range is 20 to 10,000,000 copies/mL (1.30-7.00 Log copies/mL). 02/09/2023 8:19 AM EDT 02/09/2023 8:20 AM EDT Narrative [place] - 02/12/2023 12:55 AM EDT FASTING:YES FASTING: YES Uday Schreiber MD LAB BLOOD ORDERABL ES Final Result [facility] [address], [place] [address] [facility] [address] [place] [address] * Hepatitis C Antibody with Reflex to HCV, RNA, Quantitative, Real-Time PCR (02/09/2023 8:19 AM EDT) Pathologist [facility] Hepatitis C Antibody NON-REACT PANKAJ NON-REACT PANKAJ [facility] Index 0.02 <1.00 [facility] Comment: HCV antibody was non-reactive. There is no laboratory evidence of HCV infection. In most cases, no further action is required. However, if recent HCV exposure is suspected, a test for HCV RNA (test code 58273) is suggested. For additional information please refer to http://education.[employer]/faq/VAS21i8 (This link is being provided for informational/ educational purposes only.) Blood Venous blood specimen / Unknown 02/09/2023 8:19 AM EDT 02/09/2023 8:20 AM EDT Narrative [facility] - 02/12/2023 12:55 AM EDT FASTING:YES FASTING: YES us Uday Schreiber MD LAB BLOOD ORDERABL ES Final Result [facility] [address], [place] [address] [facility] [address] [place] [address] from Last 3 Months or Most Recently Relevant to Health Maintenance Insurance [employer] [place] Care Teams Actuarial Science Professor Relationship Specialty Start Date End Date Uday Moseley MD [address] [place] [phone] PCP - General Internal Medicine 12/20/19
--- OUTSIDE RECORDS SUMMARY | 2025-01-11 18:02 | XMS_ITS | Encounter Summary ---
Author Organization [employer] Address [address] [facility] 7t [place] [address] Care Team Providers Care Office Mail Clerk Name Role Phone Uday Moseley MD Primary Care Prov ider Reason for Visit * Reason Onset Date Comments Call Back Request 03/17/2024 Encounter Details Date Type Department Care Team ([facility] st Contact Info) Description 03/17/2024 Telephone [facility] MEDICINE [address] [place] [address] Uday Moseley MD [address] [place] [address] Call Back Request Social History Tobacco Use Types Packs/Day Years [...] AM EDT documented as of this encounter Miscellaneous Notes * Telephone Encounter - Chris Mendez - 03/17/2024 8:44 AM EDT Tc from patient calling to request a call back to get clarification on why the provider did not call for the Televisit appt on 03/16 documented in this encounter Plan of Treatment Upcoming Encounters Date Type Department Care Team (Late st Contact Info) Description 03/27/2025 9:00 AM EDT Office Visit [facility] MED & PEDS [address] [place] [address] Uday Moseley MD [address] [place] [address] documented as of this encounter Visit Diagnoses Not on filedocumented in this encounter Additional Health Concerns Assessment Noted Time PHQ-9 Depression Total Score: 9 03/11/20 24 8:29 AM EDT documented as of this encounter Care Teams Office Mail Clerk Relationship Specialty Start Date End Date Uday Moseley MD [address] [place] [address] PCP - General Internal Medicine 12/20/19 documented as of this encounter
--- OUTSIDE RECORDS SUMMARY | 2025-01-11 18:02 | XMS_ITS | Encounter Summary ---
Author Organization [employer] Address [address] [facility] 7t [place] [address] Care Team Providers Care Painter Barrel Name Role Phone Uday Moseley MD Primary Care Prov ider Reason for Visit * Reason Onset Date Comments Call Back Request 01/12/2024 Encounter Details Date Type Department Care Team ([facility] st Contact Info) Description 01/12/2024 Telephone [facility] MEDICINE [address] [place] [address] Uday Moseley MD [address] [place] [address] Call Back Request Social History Tobacco Use Types Packs/Day Years Used Date Smoking Tobacco: Former Cigarettes 2 11 Smokeless Tobacco: Never Comments:Still smokes 2-3 ci g a week. Depression Answer Date Recorded Patient Health Questionnaire-9 Score 0 04/01/2023 Housing Stability Answer Date Recorded What is [...] Answer Date Recorded Patient Health Questionnaire-2 Score 0 04/01/2023 Sex and Gender Information Value Date Recorded Sex Assigned at Male 09/08/2022 10:19 AM EDT Legal Sex Male 10:19 AM EDT Gender Identity Male 09/08/2022 10:19 AM EDT Sexual Orientation Straight 09/08/2022 10 :19 AM EDT documented as of this encounter Miscellaneous Notes * Telephone Encounter - Chris Mendez - 01/12/2024 10:44 AM EST Tc from patient requesting a call back patient did not disclose any further information on why would like a call back documented in this encounter Plan of Treatment Upcoming Encounters Date Type Department Care Team (Late st Contact Info) Description 03/27/2025 9:00 AM EDT Office Visit [facility] MED & PEDS [address] [place] [address] Uday Moseley MD [address] [place] [address] documented as of this encounter Visit Diagnoses Not on filedocumented in this encounter Additional Health Concerns Assessment Noted Time PHQ-9 Depression Total Score: 0 04/01/20 23 9:08 AM EDT documented as of this encounter Care Teams Painter Barrel Relationship Specialty Start Date End Date Uday Moseley MD [address] [place] [address] PCP - General Internal Medicine 12/20/19 documented as of this encounter
--- OUTSIDE RECORDS SUMMARY | 2025-01-11 18:02 | XMS_ITS | Encounter Summary ---
Author Organization [employer] Address [address] [facility] [address] [place] [address] Care Team Providers Care Manager In Home Name Role Phone Uday Moseley MD Primary Care Prov ider Encounter Details Date Type Department Care Team (Latest Contact Info) Description 01/11/2025 2:15 PM EST Office Visit [facility] MED & PEDS [address], [place] [phone] Jackelin Kuo MD [address] [place] [address] Gastroesophageal reflux disease without esophagitis (Primary Dx); Prediabetes Social History Tobacco Use Types Packs/Day Years [...] AM EDT documented as of this encounter Last Filed Vital Signs Vital Sign Reading [...] Mass Index 33.57 01/11/2025 2:22 PM EST documented in this encounter Progress Notes * Jackelin Kuo MD - 01/11/2025 2:15 PM EST Subjective Patient ID: Antione Lawrence is a 39 y.o. male who presents for No chief complaint on file.. HPI H/o abdominal pain x several days. Intermittent. Located at the lower abdomen. No known trigger. Ptgot concerned because of family h/o stomach cancer in uncle. No reported fever or other constitutional symptoms Currently off all meds. Patient Active Problem List Diagnosis Mixed hyperlipidemia Palpitation Dietary counseling Hypertriglyceridemia Chronic pain of left knee Intractable chronic migraine without aura and without status migrainosus Mild depression Severe anxiety Allergic rhinitis Atypical chest pain Chest wall pain Bilateral hand pain Chronic back pain Dyslipidemia GERD (gastroesophageal reflux disease) HTN (hypertension), benign Impacted ear wax Laceration of scalp Acute costochondritis Lumbar radiculopathy Migraine Poison jared dermatitis Pre-hypertension Tobacco dependence syndrome Current Outpatient Medications on File Prior to Visit Medication Sig Dispense Refill amitriptyline (Elavil) 25 MG tablet Take 1 tablet (25 mg) by mouth at bedtime. 30 tablet 2 atorvastatin (Lipitor) 20 MG tablet TOME ERIN TABLETA TODOS LOS D azelastine (Astelin) 0.1 % nasal spray Administer 1 spray into each nostril 2 times daily. Use in each nostril as directed 30 mL 12 cetirizine (ZyrTEC) 10 MG tablet Take 1 tablet (10 mg) by mouth Once per day. 30 tablet 11 doxycycline (Vibra-Tabs) 100 MG tablet TOME ERIN TABLETA POR V A ORAL DOS VECES AL D A FOR 7 DAYS naproxen (Naprosyn) 500 MG tablet TAKE 1 TABLET BY MOUTH TWICE A DAY 60 tablet 0 omeprazole (PriLOSEC) [address] capsule Take 1 capsule (20 mg) by mouth before breakfast. Do not crush or chew. 90 capsule 0 salicylic acid-lactic acid (Compound W) 17 % external solution Apply topically 2 times daily. 15 mL3 SUMAtriptan (Imitrex) 50 MG tablet Take 1 tablet (50 mg) by mouth 1 (one) time if needed for migraine for up to 30 doses. May repeat dose once in 2 hours if no relief. Do not exceed 2 doses in 24 hours. 30 tablet 0 No current facility-administered medications on file prior to visit. Review of Systems Constitutional: Negative for appetite change, chills and diaphoresis. Respiratory: Negative for cough, choking and shortness of breath. Cardiovascular: Negative for leg swelling. Gastrointestinal: Positive for abdominal pain. Negative for abdominal distention and blood in stool. Objective BP (!) 146/87 (BP Location: Left arm, Patient Position: Sitting, BP Cuff Size: Adult long) Pulse 84 Temp 98 ??F (36.7 ??C) (Oral) Resp 20 Ht 5' 7.72 (1.72 m) Wt 219 lb (99.3 kg) SpO2 97% BMI 33.57 kg/m?? Physical Exam Constitutional: General: He is not in acute distress. Appearance: Normal appearance. He is not ill-appearing, toxic-appearing or diaphoretic. Cardiovascular: Rate and Rhythm: Normal rate. Pulmonary: Effort: Pulmonary effort is normal. Abdominal: General: There is no distension. Palpations: Abdomen is soft. There is no mass. Tenderness: There is abdominal tenderness. Neurological: General: No focal deficit present. Assessment/Plan Diagnoses and all orders for this visit: Gastroesophageal reflux disease without esophagitis Comments: avoid dietary irritants Head of bed elevation Avoid eating 3 hours prior to bedtime Orders: - Hepatic Function Panel; Future - CBC auto differential; Future - Helicobacter pylori Antigen, EIA, Stool; Future - omeprazole (PriLOSEC) [address] capsule; Take 1 capsule (20 mg) by mouth before breakfast. Do not crush or chew. - simethicone (Mylicon) 80 MG tablet; Take 1 tablet (80 mg) by mouth every 6 (six) hours if needed (bloating). Prediabetes Comments: Low carb diet Orders: - POCT Glucose - POCT HGB A1C documented in this encounter Plan of Treatment Upcoming Encounters Date Type Department Care Team (Late st Contact Info) Description 03/27/2025 9:00 AM EDT Office Visit [facility] MED & PED[facility] [address] [place] [address] Uday Moseley MD [address] [place] [address] Scheduled Orders Name Type Priority Associated Diagnoses Orde r Schedule Hepatic Function Panel Lab Routine Gastroesophageal reflux disease without esophagitis Expected: 01/11/2025 (Approximate), Expires: 01/11/2026 CBC auto differential Lab Routine Gastroesophageal reflux disease without esophagitis Expected: 01/11/2025 (Approximate), Expires: 01/11/2026 Helicobacter pylori??Antigen, EIA, Stool Lab Routine Gastroesophageal reflux disease without esophagitis Expected: 01/11/2025, Expires: 01/11/2026 Lipase Lab Routine Gastroesophageal reflux disease without esophagitis Expected: 01/11/2025, Expires: 01/11/2026 Amylase Lab Routine Gastroesophageal reflux disease without esophagitis Expected: 01/11/2025 (Approximate), Expires: 01/11/2026 documented as of this encounter Procedures Procedure Name Priority Date/Time Associated Diagnosis Comments POCT GLUCOSE Routine 01/11/2025 3:02 PM EST Prediabetes POCT GLYCATED HEMOGLOBIN, TOTAL Routine 01/11/2025 3:01 PM EST Prediabetes documented in this encounter Results * POCT Glucose (01/11/2025 3:02 PM EST) Glucose Blood, POC 89 60 - 200 mg/dL QC Media Lot # [id number] Lot# Expiration Date 732,025 Comment:random Blood Capillary blood specimen / Unknown 01/11/2025 3:02 PM EST Jackelin Kuo MD POINT OF CARE TEST ENTER/ED IT ORDERABLES Final Result * (ABNORMAL) POCT HGB A1C (01/11/2025 3:01 PM EST) Hemoglobin A1C 6.1(A) 4.0 - 6.0 % QC Media Lot # [id number] Lot# Expiration Date ,320 Blood 01/11/2025 3:01 PM EST Jackelin Kuo MD POINT OF CARE TEST ENTER/ED IT ORDERABLES Final Result documented in this encounter Visit Diagnoses Diagnosis Gastroesophageal reflux disease without esophagitis- Primary Esophageal reflux Prediabetes Other abnormal glucose documented in this encounter Additional Health Concerns Assessment Noted Time PHQ-9 Depression Total Score: 9 03/11/20 24 8:29 AM EDT documented as of this encounter Care Teams Manager In Home Relationship Specialty Start Date End Date Uday Moseley MD [address] [place] [id number] PCP - General Internal Medicine 12/20/19 documented as of this encounter
--- OUTSIDE RECORDS SUMMARY | 2025-01-11 18:02 | XMS_ITS | Encounter Summary ---
Author Organization [employer] Address [address] [facility] 7[address] [place] [address] Care Team Providers Care Complaint Specialist Name Role Phone Uday Moseley MD Primary Care Prov ider Reason for Visit * Reason Onset Date Comments Nurse Triage 01/10/2025 Encounter Details Date Type Department Care Team ([facility] st Contact Info) Description 01/10/2025 Telephone [facility]S [address] [place] [address] Uday Moseley MD [address] [place] [address] Nurse Triage Social History Tobacco Use Types Packs/Day Years [...] encounter Miscellaneous Notes * Telephone Encounter - Sherron Burr RN - 01/10/2025 2:17 PM EST Called pt. Via [employer] planner wait time too long. Called pt. Back using [employer]. Pt. States that he has been having stomach issues x 1 week. Pt. States he was DX with GERD in past. Pt feels like his stomach is bursting and something is squeezing his stomach inside. Last time pt. Had BM was this am and has regular BM's daily. Pt. States that in the past he was told to lose weight as he was told that he could end up with stomach cancer in past. No blood noted in stool or dark black stools. No fever. No vomiting. Protocol Used: Abdominal Pain - Male (Adult) Protocol-Based Disposition: See in Office or Video Visit Today or Tomorrow-appt 215pm tomorrow in [facility] Positive Triage Questions: * Mild pain (e.g., does not interfere with normal activities) and pain comes and goes (cramps) lasts > 48 hours (Exception: This same abdominal pain is a chronic symptom recurrent or ongoing AND present > 4 weeks.) * Abdominal pain is a chronic symptom (recurrent or ongoing AND lasting > 4 weeks) * All higher-acuity triage questions were negative Care Advice Discussed: * Reassurance and Education - Stomach Pain * Rest * Drink Clear Fluids * Avoid Aspirin and NSAIDs * Telephone Encounter - Erma Ray - 01/10/2025 2:14 PM EST Symptom: Abdominal Pain - Male Outcome: Schedule an appointment to be seen within 24 hours Reason: Caller denied all higher acuity questions The caller accepted this outcome. documented in this encounter Plan of Treatment Upcoming Encounters Date Type Department Care Team (Late st Contact Info) Description 03/27/2025 9:00 AM EDT Office Visit [facility] MED & PEDS [address] [place] [address] Uday Moseley MD [address] [place] [address] documented as of this encounter Visit Diagnoses Not on filedocumented in this encounter Additional Health Concerns Assessment Noted Time PHQ-9 Depression Total Score: 9 03/11/20 24 8:29 AM EDT documented as of this encounter Care Teams Complaint Specialist Relationship Specialty Start Date End Date Uday Moseley MD [address] [place] [address] PCP - General Internal Medicine 12/20/19 documented as of this encounter
--- OUTSIDE RECORDS SUMMARY | 2025-01-11 18:02 | XMS_ITS | Encounter Summary ---
Author Organization [employer] Address [address] [facility] [address] [place] [address] Care Team Providers Care Watch Electrician Name Role Phone Uday Moseley MD Primary Care Prov ider Encounter Details Date Type Department Care Team ([facility] st Contact Info) Description 03/21/2024 Orders Only [facility] [address] [place], [place] [phone] Uday Moseley MD [address] [place] [address] Social History Tobacco Use Types Packs/Day Years [...] Description 03/27/2025 9:00 AM EDT Office Visit [facility] MED & PEDS [address] [place] [address] Uday Moseley MD [address] [place] [address] documented as of this encounter Visit Diagnoses Not on filedocumented in this encounter Additional Health Concerns Assessment Noted Time PHQ-9 Depression Total Score: 9 03/11/20 24 8:29 AM EDT documented as of this encounter Care Teams Watch Electrician Relationship Specialty Start Date End Date Uday Moseley MD [address] [place] [address] PCP - General Internal Medicine 12/20/19 documented as of this encounter
--- OUTSIDE RECORDS SUMMARY | 2025-01-11 18:02 | XMS_ITS | Clinical Summary ---
Author Organization [facility] Address [address] [place] [address] Care Team Providers Care Photographic Technician Name Role Phone Unavailable Primary Care Provider Unavailabl e Social History Tobacco Use Types Packs/Day Years Used Date Smoking Tobacco: Never Assessed Sex and Gender Information Value Date Recorded Sex Assigned at Not on file Legal Sex Male 12:51 PM EST Gender Identity Not on file Sexual Orientation Not on file Plan of Treatment Health Maintenance Due Date Last Done Comments DTaP,Tdap,and Td Vaccines (1 - Tdap) 2004 Hepatitis B Vaccines (1 of 3 - 19+ 3-dose series) 2004 Cholesterol Screening (Lipid Panel) 12/08/2023 Depression Screening 12/08/2023 HIV Screening 12/08/2023 Hepatitis C Screening 12/08/2023 Social Influencers of Health Screening 12/08/2023 COVID-19 Vaccine (2023-2 5 season) 2024 Influenza Vaccine (#1) 2024 HIB Vaccines Aged Out No longer eligi ble based on patient's age to complete this topic HPV Vaccines Aged Out No longer eligi ble based on patient's age to complete this topic Hepatitis A Vaccines Aged Out No long er eligible based on patient's age to complete this topic IPV Vaccines Aged Out No longer eligi ble based on patient's age to complete this topic MMR Vaccines Aged Out No longer eligi ble based on patient's age to complete this topic Meningococcal ACWY Vaccine Aged Out N o longer eligible based on patient's age to complete this topic Meningococcal B Vacine Aged Out No lo nger eligible based on patient's age to complete this topic Pneumococcal Vaccine: Pediat rics (0 to 5 Years) and At-Risk Patients (6 to 64 Years) Aged Out No longer eligible b ased on patient's age to complete this topic RSV Immunization Patients Un hoang 20 months Aged Out No longer eligible b ased on patient's age to complete this topic Varicella Vaccines Aged Out No longer eligible based on patient's age to complete this topic
[2025-01-11 18:18] LABS: Alanine Aminotransferase 40 U/L (0-40); Albumin Level 4.6 g/dL (3.5-5.0); Aspartate Amino Transferase 27 U/L (5-37); Bilirubin Direct 0.1 mg/dL (0.0-0.5); Bilirubin Total 0.5 mg/dL (0.0-1.0); Total Protein 7.8 g/dL (6.5-8.0)
[2025-01-11 18:30] LABS: Basophils Percent Auto 0.4 % (0-2); Eosinophils Percent Auto 0.4 % (0-4); Hematocrit 41.9 % (42.0-52.0); Hemoglobin 14.3 g/dl (14.0-18.0); Imm Gran Abs Auto 0.03 X10*3/uL (0.00-0.03); Imm Gran Pct Auto 0.3 % (0.0-0.4); Lymphocytes Absolute Auto 2.1 X10*3/uL (1.2-4.9); Lymphocytes Percent Auto 22.5 % (20-40); Mean Corpuscular HGB Conc 34.1 g/dl (31.0-36.0); Mean Corpuscular Hemoglobin 29.9 pg (27.0-33.0); Mean Corpuscular Volume 87.7 fL (80.0-98.0); Mean Platelet Volume 11.6 fL (9.4-12.4); Monocytes Absolute Auto 0.7 X10*3/uL (0.1-1.2); Neutrophils Absolute Auto 6.3 x10*3/uL (2.0-8.3); Neutrophils Percent Auto 68.4 % (45-73); Platelet Count 227 X10*3/uL (160-400); Red Blood Count 4.78 X10*6/uL (4.60-5.80); Red Cell Distribution Width 13.2 % (11.0-16.0); White Blood Count 9.2 X10*3/uL (4.8-10.8)
[2025-01-11 18:42] LABS: Alkaline Phosphatase 65 U/L (39-117)
== END 2025-01-11 14:54 | disposition home or self-care (01) ==
LOC: HO.CHCLDS 14:53
PROVIDERS: Visit Provider Internal Medicine
DX: K21.9 Gastro-esophageal reflux disease without esophagitis (principal)
CPT/HCPCS: 36415; 80076; 85025

== ENCOUNTER 2025-04-11 08:14 | Emergency (ER) | payer OTHER, SELFPAY ==
--- NOTE | 2025-04-11 | ECG_ITS ---
Test Reason : chest pain Blood Pressure : */* mmHG Vent. Rate : 66 BPM Atrial Rate : 66 BPM P-R Int : 160 ms QRS Dur : 98 ms QT Int : 380 ms P-R-T Axes : 62 19 11 degrees QTcB Int : 398 ms Normal sinus rhythm Normal ECG When compared with ECG of 15-Sep-2023 08:03, No significant change was found Referred By: Generic ED Physician Electronically Signed By: MAREN MARTE
--- NOTE | ~2025-04-11 | XR_ITS ---
EXAMINATION: XR CHEST 2 VIEWS HISTORY: CP COMPARISON: Patent is made with the prior examination dated 02/11/2023. FINDINGS: PA and lateral views of the chest are submitted. The lungs are expanded and clear. There is no pleural effusion, pneumothorax, or pulmonary vascular congestion. The heart is normal in size. The bones are intact. XR/XR chest 2V IMPRESSION: No acute cardiopulmonary abnormality. Electronically signed by: Yaya Fall MD 04/11/2025 10:01 AM EDT
[2025-04-11 08:21] VITALS: BP 143/79; PULSE 92; RESP 18; TEMP 36.6; O2SAT 97; BMI 31.7
[2025-04-11 08:36] LABS: MANUAL DIFF FLAG NO
[2025-04-11 08:41] LABS: Basophils Percent Auto 0.3 % (0-2); Eosinophils Absolute Auto 0.1 X10*3/uL (0.0-0.4); Eosinophils Percent Auto 0.9 % (0-4); Hematocrit 41.3 % (42.0-52.0); Hemoglobin 14.6 g/dl (14.0-18.0); Imm Gran Abs Auto 0.03 X10*3/uL (0.00-0.03); Imm Gran Pct Auto 0.4 % (0.0-0.4); Lymphocytes Absolute Auto 1.5 X10*3/uL (1.2-4.9); Lymphocytes Percent Auto 19.3 % (20-40); Mean Corpuscular HGB Conc 35.4 g/dl (31.0-36.0); Mean Corpuscular Hemoglobin 30.6 pg (27.0-33.0); Mean Corpuscular Volume 86.6 fL (80.0-98.0); Monocytes Absolute Auto 0.6 X10*3/uL (0.1-1.2); Monocytes Percent Auto 7.4 % (2-11); Neutrophils Absolute Auto 5.7 x10*3/uL (2.0-8.3); Neutrophils Percent Auto 71.7 % (45-73); Platelet Count 201 X10*3/uL (160-400); Red Blood Count 4.77 X10*6/uL (4.60-5.80); Red Cell Distribution Width 13.1 % (11.0-16.0)
[2025-04-11 08:48] VITALS: BP 136/86; PULSE 70; RESP 19; TEMP 36.7; O2SAT 98
--- NOTE | 2025-04-11 08:52 | PC.NURSE ---
PAtient A&O x 3, Patient presents to ED c/o chest pain rated 7/10 sometimes radiating to right extremity. Pain started 2 weeks ago and symptoms havent subsided. PAtient c/o SOB O2 96% RA RR 18. Patient reports using ASA to help alleviate the chest pain. PAtient on hospital monitor NSR. VSS and up to date. SARS collected/sent. Plan of care on going
[2025-04-11 09:00] LABS: Anion Gap 12 (12-20)
[2025-04-11 09:01] LABS: Alanine Aminotransferase 43 U/L (0-40); Albumin Level 4.4 g/dL (3.5-5.0); Alkaline Phosphatase 65 U/L (39-117); Aspartate Amino Transferase 30 U/L (5-37); Bilirubin Total 0.4 mg/dL (0.0-1.0); Blood Urea Nitrogen 20 mg/dL (9-16); Calcium 8.8 mg/dL (8.4-10.2); Carbon Dioxide 24 mmol/L (22-29); Chloride 107 mmol/L (96-108); Creatinine Clr Calc Pharmacy 120.3; Estimated Glomerular Filt Rate > 60; Glucose Random 236 mg/dL (60-115); Magnesium 2.1 mg/dL (1.6-2.6); Potassium 3.8 mmol/L (3.3-5.1); Sodium 139 mmol/L (135-145)
[2025-04-11 09:06] LABS: Troponin-I High Sensitivity < 2.7 ng/L (<3.5-35.0)
--- NOTE | 2025-04-11 09:09 | ED_ITS ---
HPI - Chest Pain General Chief Complaint: Chest Pain Stated Complaint: Chest pain, nausea Time Seen by Provider: 04/11/25 09:07 Source: patient and RN notes reviewed Mode of arrival: ambulatory Limitations: no limitations History of Present Illness ED Provider: Kiki Aguilar PA-C HPI narrative: This is a 40-year-old male, with a past medical hyperlipidemia, hypertension, and asthma, who presents emergency department with concerns for intermittent chest pain for the last 2 weeks. Patient reports that over the last 2 weeks he has been working in his basement, hanging up ceiling tiles. He states that he has had chest pain since then. He states that the chest pain is intermittent however states that over the last 3 days it has been constant in his throughout his entire chest wall, pain worsens with palpation. Denies any provoking factors that worsens his chest pain. He does report some associated shortness of breath. Denies any recent illness. No fevers or chills. No vomiting or diarrhea. No history of similar symptoms in the past. MD complaint: chest pain Pain location: substernal Pain radiation: none Risk Factors Coronary artery disease risk factors: hyperlipidemia and hypertension Thoracic aortic dissection risk factors: none Related Data Previous Rx's ?Medication ?Instructions ?Recorded ibuprofen 600 mg tablet 600 mg PO Q6H PRN pain #30 tabs 09/03/20 doxycycline monohydrate 100 mg 100 mg PO BID #14 caps 12/27/20 capsule fluticasone propionate 50 1 spray intranasal Q12H #16 grams 12/27/20 mcg/actuation nasal spray,suspension (Flonase Allergy Relief) ibuprofen 600 mg tablet 600 mg PO Q6H PRN pain #20 tabs 12/27/20 ztshdsrzui-doovfsxssbaby-urtttvbq 1 cap PO Q6H PRN headache #20 caps 01/23/21 50 mg-300 mg-40 mg capsule (Fioricet) sumatriptan succinate 50 mg tablet See Rx Instructions PO .COMPLEX #7 01/23/21 (Imitrex) tabs eumvrszthn-jpvnyvzutcjvs-ghnmjfuc 1 cap PO Q8H PRN pain #14 caps 01/31/21 50 mg-300 mg-40 mg capsule (Fioricet) doxycycline monohydrate 100 mg 100 mg PO BID 7 days #14 caps 01/31/21 capsule famotidine 20 mg tablet (Pepcid) 20 mg PO BID 7 days #14 tabs 05/31/21 hydroxyzine HCl 25 mg tablet 25 mg PO TID PRN itching #21 tabs 05/31/21 prednisone 20 mg tablet 40 mg (2 x 20 mg) PO DAILY 5 days 05/31/21 #10 tabs metoclopramide HCl 10 mg tablet 10 mg PO Q6H PRN nausea and 07/11/21 (Reglan) vomiting #14 tabs cyclobenzaprine 10 mg tablet 10 mg PO BEDTIME PRN muscle spasm 02/11/23 #7 tabs ketorolac 10 mg tablet 10 mg PO TID PRN pain 5 days #15 02/11/23 tabs prednisone 20 mg tablet 40 mg (2 x 20 mg) PO DAILY 5 days 02/11/23 #10 tabs doxycycline hyclate 100 mg tablet 100 mg PO BID 7 days #14 tabs 05/18/24 Allergies Allergy/AdvReac Type Severity Reaction Status Date / Time penicillin V Allergy Unknown rash Verified 04/11/25 08:23 Penicillins [PENICILLINS] Allergy Unknown RASH Verified 04/11/25 08:23 pravastatin Allergy Unknown chest Verified 04/11/25 08:23 pain, constipation Review of Systems 2 Review of Systems: Yes all other systems are reviewed and are negative Constitutional: Constitutional: Reports as per [facility] Past Medical History Medical History High cholesterol HTN (hypertension), benign Sinus congestion Migraines Asthma Costochondritis Surgical History No significant past surgical history Social History Social History Alcohol intake: never Smoked in Last 30 Days: No Use of substances other than those prescribed or required for medical reasons: Yes Substance Use Type: Marijuana Substance Use Frequency: Daily Advance Directives: No Advance Directives Information Provided: Yes Do you have a plan to hurt others: No Plan Physical Exam 2 Vital Signs: Vital Signs: Last Vital Signs Temp 98.1 F 04/11/25 08:48 Pulse 70 04/11/25 08:48 Resp 19 04/11/25 08:48 BP 136/86 04/11/25 08:48 Pulse Ox 98 04/11/25 08:48 O2 Del Method Room Air 04/11/25 08:48 BMI result Body Mass Index 31.7 Const: General: cooperative, comfortable and no acute distress O rientation/consciousness: patient oriented x3 Limitations: no limitations HEENT: Head: Yes normal to inspection, Yes normocephalic and Yes atraumatic Ears: hearing grossly normal bilaterally General nose exam: Normal external nose present Face and sinus: Yes normal facial exam Mouth: Normal oral and palatal mucosa present, oropharynx normal and moist mucous membranes Throat: Yes posterior oropharynx normal Eyes: General: appearance normal, both eyes and all related structures E yelids: Yes eyelids normal Conjunctivae: conjunctivae normal Sclerae: s clerae normal Pupils: Equal, round and reactive pupils present EOM: EOMs intact bilaterally Neck: Neck: Yes normal visual inspection, Yes full ROM and Yes no lymphadenopathy Lymphatic: no lymphadenopathy noted Chest: Other: Patient with anterior chest wall tenderness palpation. Chest palpation & inspection: normal inspection of the chest Resp: Effort & Inspection: normal respiratory effort and able to speak in complete sentences Auscultation: clear to auscultation bilaterally, no crackles, no rales, no rhonchi and no wheezes Cardio: Rate: regular rate Rhythm: regular rhythm Heart sounds: S1 normal heart sound present and S2 normal heart sound present GI: Other: Abdomen is soft and nontender Inspection: Yes normal to inspection Skin: General skin exam: no rashes or lesions noted Trauma: no lacerations or abrasions Wounds: no wounds Neuro: General: patient oriented x3 and moves all extremities Cranial nerves: Yes Equal, round and reactive pupils present Extrem: General: Yes normal to inspection Right upper extremity: normal to inspection Left upper extremity: normal to inspection Right lower extremity: normal to inspection Left lower extremity: normal to inspection Medications Administered Discontinued Medications Generic Name Dose Route Start Last Admin Trade Name Freq PRN Reason Stop Dose Admin Acetaminophen 975 mg 04/11/25 09:21 04/11/25 09:27 Acetaminophen 325 Mg Tablet PO 04/11/25 09:22 975 mg ONCE ONE Administration Medical Decision Making Medical Decision Making [facility] Narrative: This is a 40-year-old male, with a past medical history of hypertension and hyperlipidemia, who presents emergency department with complaints of chest pain for the last 2 weeks. On arrival, patient is well-appearing, appears to be under no acute distress. Slightly hypertensive at 143/79, all other vital signs within normal limits. Chest pain has been constant, waxes and wanes in severity. He has been working on his basement, states that he has been hanging up ceiling tiles. He does have tenderness to palpation along the anterior chest wall. Did have a recent flight to [place] and back. Differential diagnoses include ACS, chest wall strain, PE-unlikely, pneumothorax, reactive airway disease. Will obtain labs, EKG. Added D-dimer due to recent travel to [place] although this is unlikely. We will continue to closely monitor pending workup. 1200 - 2nd troponin negative, D-dimer negative, chest x-ray unremarkable. Patient's overall workup today is reassuring. Patient has a heart score of 1. This does not seem cardiac in nature. Discussed with patient that his random glucose is elevated and he needs to follow-up with his primary care physician. Patient reports that he is feeling better after receiving Tylenol. Given strict return precautions. He understands and agrees with plan. Patient stable for discharge. Differential Diagnosis Differential Diagnoses: The differential diagnosis associated with the presentation includes See above Lab Data [facility] Lab Attestation statement: I reviewed the patient's lab results. See MDM and course 04/11/25 08:32 04/11/25 08:32 Labs: Lab Results 04/11/25 04/11/25 04/11/25 Range/Units 08:32 08:57 09:31 WBC 8.0 (4.8-10.8) X10*3/uL RBC 4.77 (4.60-5.80) X10*6/uL Hgb 14.6 (14.0-18.0) g/dl Hct 41.3 L (42.0-52.0) % MCV 86.6 (80.0-98.0) fL MCH 30.6 (27.0-33.0) pg MCHC 35.4 (31.0-36.0) g/dl RDW 13.1 (11.0-16.0) % Plt Count 201 (160-400) X10*3/uL MPV 11.0 (9.4-12.4) fL Immature Gran % (Auto) 0.4 (0.0-0.4) % Neut % (Auto) 71.7 (45-73) % Lymph % (Auto) 19.3 L (20-40) % [place] % (Auto) 7.4 (2-11) % Eos % (Auto) 0.9 (0-4) % Baso % (Auto) 0.3 (0-2) % Lymph # (Auto) 1.5 (1.2-4.9) X10*3/uL [place] # (Auto) 0.6 (0.1-1.2) X10*3/uL Eos # (Auto) 0.1 (0.0-0.4) X10*3/uL Baso # (Auto) 0.0 (0.0-0.2) X10*3/uL Abs Immat Gran (auto) 0.03 (0.00-0.03) X10*3/uL Absolute Neuts (auto) 5.7 (2.0-8.3) x10*3/uL Absolute Nucleated RBC 0.000 (0.0-0.012) X10*3/uL Nucleated RBC % (auto) 0.0 (0.0-0.2) /100WBC D-Dimer High Sensitivty < 150 NG/ML Sodium 139 (135-145) mmol/L Potassium 3.8 (3.3-5.1) mmol/L Chloride 107 (96-108) mmol/L Carbon Dioxide 24 (22-29) mmol/L Anion Gap 12 (12-20) BUN 20 H (9-16) mg/dL Creatinine 0.94 (0.5-1.4) mg/dL Estim Creat Clear Calc 120.3 Estimated GFR > 60 Random Glucose 236 H (60-115) mg/dL Calcium 8.8 (8.4-10.2) mg/dL Magnesium 2.1 (1.6-2.6) mg/dL Total Bilirubin 0.4 (0.0-1.0) mg/dL AST 30 (5-37) U/L ALT 43 H (0-40) U/L Alkaline Phosphatase 65 (39-117) U/L Troponin I High Sens < 2.7 (<3.5-35.0) ng/L Total Protein 7.0 (6.5-8.0) g/dL Albumin 4.4 (3.5-5.0) g/dL Influenza Type A (PCR) NEGATIVE (Negative) Influenza Type B (PCR) NEGATIVE (Negative) RSV RNA Qual (PCR) NEGATIVE (Negative) SARS-CoV-2 RNA (RT-PCR) NEGATIVE (Negative) 04/11/25 Range/Units 10:24 WBC (4.8-10.8) X10*3/uL RBC (4.60-5.80) X10*6/uL Hgb (14.0-18.0) g/dl Hct (42.0-52.0) % MCV (80.0-98.0) fL MCH (27.0-33.0) pg MCHC (31.0-36.0) g/dl RDW (11.0-16.0) % Plt Count (160-400) X10*3/uL MPV (9.4-12.4) fL Immature Gran % (Auto) (0.0-0.4) % Neut % (Auto) (45-73) % Lymph % (Auto) (20-40) % [place] % (Auto) (2-11) % Eos % (Auto) (0-4) % Baso % (Auto) (0-2) % Lymph # (Auto) (1.2-4.9) X10*3/uL [place] # (Auto) (0.1-1.2) X10*3/uL Eos # (Auto) (0.0-0.4) X10*3/uL Baso # (Auto) (0.0-0.2) X10*3/uL Abs Immat Gran (auto) (0.00-0.03) X10*3/uL Absolute Neuts (auto) (2.0-8.3) x10*3/uL Absolute Nucleated RBC (0.0-0.012) X10*3/uL Nucleated RBC % (auto) (0.0-0.2) /100WBC D-Dimer High Sensitivty NG/ML Sodium (135-145) mmol/L Potassium (3.3-5.1) mmol/L Chloride (96-108) mmol/L Carbon Dioxide (22-29) mmol/L Anion Gap (12-20) BUN (9-16) mg/dL Creatinine (0.5-1.4) mg/dL Estim Creat Clear Calc Estimated GFR Random Glucose (60-115) mg/dL Calcium (8.4-10.2) mg/dL Magnesium (1.6-2.6) mg/dL Total Bilirubin (0.0-1.0) mg/dL AST (5-37) U/L ALT (0-40) U/L Alkaline Phosphatase (39-117) U/L Troponin I High Sens 2.8 (<3.5-35.0) ng/L Total Protein (6.5-8.0) g/dL Albumin (3.5-5.0) g/dL Influenza Type A (PCR) (Negative) Influenza Type B (PCR) (Negative) RSV RNA Qual (PCR) (Negative) SARS-CoV-2 RNA (RT-PCR) (Negative) Independent Interpretation I performed an independent interpretation of an: EKG Interpretation: EKG normal sinus rhythm at a ventricular rate of 66 beats per minute, NV interval 160, QT QTC 380/389, no STEMI. Radiology Impression Discussion of test interpretation with radiology: I have reviewed the radiologist's reading. Radiologist Impression: XR/XR chest 2V IMPRESSION: No acute cardiopulmonary abnormality. Electronically signed by: Yaya Fall MD 04/11/2025 10:01 AM EDT RP Dictated By: Yaya Fall MD Scores Heart Score History: -0- slightly suspicious ECG: -0- normal Age: -0- < or = 45 Risk factory: -1- 1 or 2 risk factors Troponin: -0- < or = normal limit Score: 1 Risk: 1.7% Discharge Plan Discharge Clinical Impression: Chest pain Patient Disposition: Home, Self-Care Instructions: Chest Pain (ED), Noncardiac Chest Pain (ED) Additional Instructions: You were seen in the emergency department due to chest pain. Your workup today was reassuring. You need to follow-up with your primary care physician as your blood glucose level was elevated at 236. You need to have further testing as you may have diabetes. Please drink plenty of fluids get plenty of rest. If any new or worsening symptoms occur including but not limited to worsening chest pain, shortness of breath, please seek emergent care. Prescriptions: No Action ibuprofen 600 mg tablet 600 mg PO Q6H PRN (Reason: pain) Qty: 30 0RF doxycycline monohydrate 100 mg capsule 100 mg PO BID Qty: 14 0RF fluticasone propionate [Flonase Allergy Relief] 50 mcg/actuation spray,suspension 1 spray intranasal Q12H Qty: 16 0RF Rx Instructions: administer into each nostril ibuprofen 600 mg tablet 600 mg PO Q6H PRN (Reason: pain) Qty: 20 0RF metoclopramide HCl [Reglan] 10 mg tablet 10 mg PO Q6H PRN (Reason: nausea and vomiting) Qty: 14 0RF sumatriptan succinate [Imitrex] 50 mg tablet See Rx Instructions .ROUTE .COMPLEX Qty: 7 0RF Rx Instructions: take 1 tab at onset of headache; if no relief may repeat 1 tab after at least 2 hrs; max = 2 tabs/24 hr buywyraujn-ckcmadmsjqczx-yyjn [Fioricet] 50-300-40 mg capsule 1 cap PO Q6H PRN (Reason: headache) Qty: 20 0RF sskhjgwtwp-nsvkdwyataozy-mpxy [Fioricet] 50-300-40 mg capsule 1 cap PO Q8H PRN (Reason: pain) Qty: 14 0RF doxycycline monohydrate 100 mg capsule 100 mg PO BID 7 Days Qty: 14 0RF prednisone 20 mg tablet 40 mg PO DAILY 5 Days Qty: 10 0RF famotidine [Pepcid] 20 mg tablet 20 mg PO BID 7 Days Qty: 14 0RF hydroxyzine HCl 25 mg tablet 25 mg PO TID PRN (Reason: itching) Qty: 21 0RF cyclobenzaprine 10 mg tablet 10 mg PO BEDTIME PRN (Reason: muscle spasm) Qty: 7 0RF prednisone 20 mg tablet 40 mg PO DAILY 5 Days Qty: 10 0RF ketorolac 10 mg tablet 10 mg PO TID PRN (Reason: pain) 5 Days Qty: 15 0RF doxycycline hyclate 100 mg tablet 100 mg PO BID 7 Days Qty: 14 0RF Stand Alone Forms: Work/School Release Print Language: German
[2025-04-11] MEDS: Acetaminophen 325 MG TABLET 975 MG PO (09:27)
[2025-04-11 09:46] LABS: Influenza A PCR NEGATIVE (Negative); Influenza B PCR NEGATIVE (Negative); Resp Syncy Virus RNA Qual PCR NEGATIVE (Negative); SARS COV2 PCR INHOUSE NEGATIVE (Negative)
[2025-04-11 09:46] LABS: D Dimer High Sensitivity < 150 NG/ML
--- NOTE | 2025-04-11 09:56 | PC.NURSE ---
Patient heading to xray at this time. Patient able to ambulate independently w/o assistive device
--- NOTE | 2025-04-11 10:13 | PC.NURSE ---
Patient returned from xray, results are unremarkable
[2025-04-11 10:52] LABS: Troponin-I High Sensitivity 2.8 ng/L (<3.5-35.0)
[2025-04-11 12:21] VITALS: BP 145/95; PULSE 71; RESP 18; TEMP 36.7; O2SAT 98
[2025-04-11 12:22] VITALS: BP 145/95; PULSE 71; RESP 18; TEMP 36.7; O2SAT 98
== END 2025-04-11 12:22 | disposition home or self-care (01) ==
PROVIDERS: Physician Assistant Medical; Emergency Provider Emergency Medicine Emergency Medical Services; PCP Internal Medicine
DX: R07.9 Chest pain, unspecified (principal); I10 Essential (primary) hypertension; E78.5 Hyperlipidemia, unspecified; J45.909 Unspecified asthma, uncomplicated; Z03.818 Encounter for observation for suspected exposure to other biological agents ruled out
CPT/HCPCS: 0241U; 36415; 71046; 80053; 83735; 84484; 85025; 85379; 93005; 99283; 99285

== ENCOUNTER → 2025-04-11 08:15 | Outpatient (BNV) | payer OTHER, SELFPAY | PROVIDERS: Emergency Provider Emergency Medicine Emergency Medical Services; PCP Internal Medicine; Visit Provider Internal Medicine | DX: R07.9 Chest pain, unspecified (principal) | CPT/HCPCS: 93010 ==

== ENCOUNTER → 2025-04-11 09:48 | Outpatient (BNV) | payer OTHER, SELFPAY | PROVIDERS: Emergency Provider Emergency Medicine Emergency Medical Services; PCP Internal Medicine; Visit Provider Radiology Diagnostic Radiology | DX: R07.9 Chest pain, unspecified (principal) | CPT/HCPCS: 71046 ==

== ENCOUNTER 2025-09-27 13:52 | Emergency (ER) | payer OTHER, SELFPAY ==
--- NOTE | ~2025-09-27 | XR_ITS ---
EXAMINATION: XR FOOT 3 OR MORE VIEWS RIGHT HISTORY: stepped on nail COMPARISON: There are no prior studies available for comparison. FINDINGS: Three views of the right foot are submitted. An overlying shoe limits evaluation. No obvious fracture is identified although evaluation is limited. The joint spaces are difficult to evaluate. A metallic nail is seen extending through the sole of the tissue and into the soft tissues. XR/XR foot RT min 3V IMPRESSION: Metallic nail extending into the soft tissues of the sole of the foot. No definite osseous abnormality is seen. Evaluation is limited by the overlying shoe. Electronically signed by: Yaya Fall MD 09/27/2025 02:52 PM [facility]
--- NOTE | 2025-09-27 14:09 | ED_ITS ---
HPI - Extremity Injury (Lower) General Chief Complaint: Skin/Abscess/Foreign Body Stated Complaint: stepped on nail, stuck in boot. From Time Seen by Provider: 09/27/25 17:50 Source: patient, RN notes reviewed and old records reviewed Mode of arrival: ambulatory Limitations: no limitations History of Present Illness ED Provider: Alfonzo HPI Narrative: 40-year-old male presents for evaluation of a nail in the bottom of his right foot. Patient was at work when he stepped on a piece of wood and a nail became embedded in the sole of his foot. He tried to remove the nail himself but could not. His most recent tetanus was in 2021 He has no other complaints or injuries at the time Related Data Previous Rx's ?Medication ?Instructions ?Recorded ibuprofen 600 mg tablet 600 mg PO Q6H PRN pain #30 t abs 09/03/20 doxycycline monohydrate 100 mg 100 mg PO BID #14 caps 12/27/20 capsule fluticasone propionate 50 1 spray intranasal Q12H #16 grams 12/27/20 mcg/actuation nasal spray,suspension (Flonase Allergy Relief) ibuprofen 600 mg tablet 600 mg PO Q6H PRN pain #20 t abs 12/27/20 cvejvwwhzf-sriyvvdlylmyk-czcxehfr 1 cap PO Q6H PRN hea dache #20 caps 01/23/21 50 mg-300 mg-40 mg capsule (Fioricet) sumatriptan succinate 50 mg tablet See Rx Instructions PO .COMPLEX #7 01/23/21 (Imitrex) tabs gyljziivim-xigtvsmadfilg-ukskxtlv 1 cap PO Q8H PRN julia n #14 caps 01/31/21 50 mg-300 mg-40 mg capsule (Fioricet) doxycycline monohydrate 100 mg 100 mg PO BID 7 days #1 4 caps 01/31/21 capsule famotidine 20 mg tablet (Pepcid) 20 mg PO BID 7 days # 14 tabs 05/31/21 hydroxyzine HCl 25 mg tablet 25 mg PO TID PRN itching #21 tabs 05/31/21 prednisone 20 mg tablet 40 mg (2 x 20 mg) PO DAILY 5 days 05/31/21 #10 tabs metoclopramide HCl 10 mg tablet 10 mg PO Q6H PRN nause a and 07/11/21 (Reglan) vomiting #14 tabs cyclobenzaprine 10 mg tablet 10 mg PO BEDTIME PRN musc le spasm 02/11/23 #7 tabs ketorolac 10 mg tablet 10 mg PO TID PRN pain 5 days #15 02/11/23 tabs prednisone 20 mg tablet 40 mg (2 x 20 mg) PO DAILY 5 days 02/11/23 #10 tabs doxycycline hyclate 100 mg tablet 100 mg PO BID 7 days #14 tabs 05/18/24 levofloxacin 750 mg tablet 750 mg PO Q24H #2 tabs 09/09 08/03 Allergies Allergy/AdvReac Type Severity Reaction Status Date / Time penicillin V Allergy Unknown rash Verified 09/27/25 14:11 Penicillins (PENICILLINS) Allergy Unknown RASH Verified 09/27/25 14:11 pravastatin Allergy Unknown chest Verified 09/27/25 14:11 pain, constipation Review of Systems 2 Integumentary/Breasts: Skin/Breast: Reports wounds PMFSH Past Medical History Medical History High cholesterol HTN (hypertension), benign Sinus congestion Migraines Asthma Costochondritis Surgical History No significant past surgical history Social History Social History Alcohol intake: never Substance Use Type: Marijuana Advance Directives: No Advance Directives Information Provided: Yes Do you have a plan to hurt others: No Plan Physical Exam 2 Vital Signs: Vital Signs: Last Vital Signs Temp 97.7 F 09/27/25 17:43 Pulse 61 09/27/25 17:43 Resp 18 09/27/25 18:05 BP 151/91 H 09/27/25 17:43 Pulse Ox 98 09/27/25 17:43 O2 Del Method Room Air 09/27/25 17:43 BMI result Body Mass Index 31.2 Const: General: healthy appearing, comfortable, no acute distress, alert and awake Nutritional Appearance: well nourished Orientation/consciousness: p atient oriented x3 HEENT: Head: Yes normocephalic and Yes atraumatic Eyes: Eyelids: Yes eyelids normal Conjunctivae: conjunctivae normal S clerae: sclerae normal Corneas: corneas normal Pupils: Equal, round and reactive pupils present EOM: EOMs intact bilaterally Neck: Neck: Yes full ROM Resp: Effort & Inspection: normal respiratory effort, able to speak in complete sentences and not labored Skin: Other: There is a nail embedded in the sole of the right foot. This is attached to a piece of wood. The patient's sock in boot are both in place. No active bleeding Neuro: General: patient oriented x3 Cranial nerves: Yes Equal, round and reactive pupils present and Yes Bilaterally intact EOM present Cognition (Neuro): normal cognition Course Course Course Narrative: This is a Rapid Medical Exam performed in triage by Vivian Blackwell PA-C. Full HPI, ROS and PE to be performed by primary ED provider. 40 yo M presenting to the ED c/o stepped on nail at work [employer]. Tetanus UTD. Admits tried to remove shoe but could not. Also reports CP this AM & at present. Took ASA this AM. denies AC use PE: R foot with boot on & wood/nail stuck in foot, talk in in complete sentences Plan: XR Reevaluation(s) Reevaluation #1: see procedure note, foreign body was successfully removed intact. I cleaned the wound, I had him soak the foot in povidone with saline. I also gave him a dose of levofloxacin given that this was a through that she wound worse Pseudomonas prophylaxis. Time: 19:25 Medications Administered Discontinued Medications Generic Name Dose Route Start Last Admin Trade Name Christine PRN Reason Stop Dose Admin Levofloxacin 750 mg 09/27/25 19:02 09/27/25 19:20 Levofloxacin 750 Mg Tablet PO 09/27/25 19:03 750 mg ONCE ONE Administration Lidocaine/Epinephrine 10 ml 09/27/25 18:18 09/27/25 18:31 Lidocaine Hcl 1%/Epi 1:100,000 20 Ml Vial INFILTRATI 09/27/25 18:19 10 ml ONCE ONE Administration Morphine Sulfate 6 mg 09/27/25 17:58 09/27/25 18:05 Morphine Sulfate 10 Mg/Ml Cartridge IM 09/27/25 17:59 6 mg ONCE ONE Administration Protocol Ondansetron HCl 4 mg 09/27/25 17:58 09/27/25 18:05 Ondansetron Odt 4 Mg Tab.Rapdis TRANSLINGU 09/27/25 17:59 4 mg ONCE ONE Administration Medical Decision Making Medical Decision Making [facility] Narrative: 40-year-old male presents for evaluation of a nail through the bottom of his foot. X-ray was performed which does not show any osseous injury. I used ilsa to cut through the patient's boot. He was given a dose of IM morphine and Zofran. Plan for nerve block and removal of the foreign body Differential Diagnosis Differential Diagnoses: The differential diagnosis associated with the presentation includes Puncture wound Foreign body Laceration Lab Data [facility] Lab Attestation statement: I reviewed the patient's lab results. No leukocytosis or anemia. Normal platelet count. No electrolyte abnormalities warranting dimension. 09/27/25 14:33 09/27/25 14:33 Labs: Lab Results 09/27/25 Range/Units 14:33 WBC 9.7 (4.8-10.8) X10*3/uL RBC 4.76 (4.60-5.80) X10*6/uL Hgb 14.4 (14.0-18.0) g/dl Hct 42.0 (42.0-52.0) % MCV 88.2 (80.0-98.0) fL MCH 30.3 (27.0-33.0) pg MCHC 34.3 (31.0-36.0) g/dl RDW 12.9 (11.0-16.0) % Plt Count 224 (160-400) X10*3/uL MPV 10.9 (9.4-12.4) fL Immature Gran % (Auto) 0.4 (0.0-0.4) % Neut % (Auto) 74.7 H (45-73) % Lymph % (Auto) 16.4 L (20-40) % [place] % (Auto) 7.8 (2-11) % Eos % (Auto) 0.4 (0-4) % Baso % (Auto) 0.3 (0-2) % Lymph # (Auto) 1.6 (1.2-4.9) X10*3/uL [place] # (Auto) 0.8 (0.1-1.2) X10*3/uL Eos # (Auto) 0.0 (0.0-0.4) X10*3/uL Baso # (Auto) 0.0 (0.0-0.2) X10*3/uL Abs Immat Gran (auto) 0.04 H (0.00-0.03) X10*3/uL Absolute Neuts (auto) 7.2 (2.0-8.3) x10*3/uL Absolute Nucleated RBC 0.000 (0.0-0.012) X10*3/uL Nucleated RBC % (auto) 0.0 (0.0-0.2) /100WBC Sodium 138 (135-145) mmol/L Potassium 4.1 (3.3-5.1) mmol/L Chloride 105 (96-108) mmol/L Carbon Dioxide 26 (22-29) mmol/L Anion Gap 11 L (12-20) BUN 17 H (9-16) mg/dL Creatinine 0.88 (0.5-1.4) mg/dL Estim Creat Clear Calc 123.4 Estimated GFR > 60 Random Glucose 96 (60-115) mg/dL Calcium 9.4 D (8.4-10.2) mg/dL Troponin I High Sens 4.3 D (<3.5-35.0) ng/L Independent Interpretation I performed an independent interpretation of an: Plain X-Ray Interpretation: Metallic foreign body embedded in the sole of the foot Radiology Impression Discussion of test interpretation with radiology: I have reviewed the radiologist's reading. Radiologist Impression: FINDINGS: Three views of the right foot are submitted. An overlying shoe limits evaluation. No obvious fracture is identified although evaluation is limited. The joint spaces are difficult to evaluate. A metallic nail is seen extending through the sole of the tissue and into the soft tissues. XR/XR foot RT min 3V IMPRESSION: Metallic nail extending into the soft tissues of the sole of the foot. No definite osseous abnormality is seen. Evaluation is limited by the overlying shoe. Electronically signed by: Yaya Fall MD 09/27/2025 02:52 PM [facility] Procedures Procedure Narrative Procedure Narrative: Nerve Block Procedure: Indication: Anesthesia/Analgesia for the affected area. Performed by: Thien Freire MD Approximate Time: 10 A right posterior tibial nerve block was performed. After explanation of the risks, benefits, and alternatives verbal consent was obtained A neurologic exam was conducted including motor and/or sensory testing of the posterior tibial, There were no deficits. Extremity compartments were soft. The area of injection was prepped with chlorhexidine. A [20 gauge, 1.5 in] in length needle was used. Ultrasound guidance with real-time visualization of the needle tip was utilized throughout the procedure. In-plane approach was used to visualize needle tip. Images were saved. Approximately 5 mL of 1% lidocaine with epinephrine was injected near the nerve structure or plane. Local anesthetic gradually injected ?in small aliquots of 3- 5ml following negative aspiration. There was no complication ?during the procedure. There were no signs of local anesthetic toxicity. There were no other complications. Patient tolerated the procedure. ??Following the procedure, the blocked extremity was protected or positioned to prevent injury. CPT: ?(DEA MA/DOCUMENT US; US GUIDANCE IS BUNDLED) Lower Ext Branch: 57590; 72480 Discharge Plan Discharge Clinical Impression: Puncture wound of foot with foreign body Patient Disposition: Home, Self-Care Instructions: Puncture Wound in the Foot (ED) Additional Instructions: The x-ray showed no evidence of injury to the bone. You are at a high risk for infection, therefore I recommend taking Levaquin once daily for 3 days, your 1st dose was given in the ER this medication can increase your risk of tendon injury, so you should not be active while taking it you can clean the area with soap and water and apply topical antibiotic return for new or worsening symptoms, especially if you develop worsening pain, fevers, redness or drainage from the wound Prescriptions: New levofloxacin 750 mg tablet 750 mg PO Q24H Qty: 2 0RF No Action ibuprofen 600 mg tablet 600 mg PO Q6H PRN (Reason: pain) Qty: 30 0RF doxycycline monohydrate 100 mg capsule 100 mg PO BID Qty: 14 0RF fluticasone propionate [Flonase Allergy Relief] 50 mcg/actuation spray,suspension 1 spray intranasal Q12H Qty: 16 0RF Rx Instructions: administer into each nostril ibuprofen 600 mg tablet 600 mg PO Q6H PRN (Reason: pain) Qty: 20 0RF metoclopramide HCl [Reglan] 10 mg tablet 10 mg PO Q6H PRN (Reason: nausea and vomiting) Qty: 14 0RF sumatriptan succinate [Imitrex] 50 mg tablet See Rx Instructions .ROUTE .COMPLEX Qty: 7 0RF Rx Instructions: take 1 tab at onset of headache; if no relief may repeat 1 tab after at least 2 hrs; max = 2 tabs/24 hr wflargdsqt-pdxujjfyxyehi-lnby [Fioricet] 50-300-40 mg capsule 1 cap PO Q6H PRN (Reason: headache) Qty: 20 0RF pabdxebvic-oljgbmusghqod-ipnk [Fioricet] 50-300-40 mg capsule 1 cap PO Q8H PRN (Reason: pain) Qty: 14 0RF doxycycline monohydrate 100 mg capsule 100 mg PO BID 7 Days Qty: 14 0RF prednisone 20 mg tablet 40 mg PO DAILY 5 Days Qty: 10 0RF famotidine [Pepcid] 20 mg tablet 20 mg PO BID 7 Days Qty: 14 0RF hydroxyzine HCl 25 mg tablet 25 mg PO TID PRN (Reason: itching) Qty: 21 0RF cyclobenzaprine 10 mg tablet 10 mg PO BEDTIME PRN (Reason: muscle spasm) Qty: 7 0RF prednisone 20 mg tablet 40 mg PO DAILY 5 Days Qty: 10 0RF ketorolac 10 mg tablet 10 mg PO TID PRN (Reason: pain) 5 Days Qty: 15 0RF doxycycline hyclate 100 mg tablet 100 mg PO BID 7 Days Qty: 14 0RF Stand Alone Forms: Work/School Release Print Language: Nigerian
[2025-09-27 14:10] VITALS: BP 148/83; PULSE 68; RESP 16; TEMP 36.6; O2SAT 96; BMI 31.2
--- NOTE | 2025-09-27 14:12 | ECG_ITS ---
Test Reason : CP Blood Pressure : */* mmHG Vent. Rate : 70 BPM Atrial Rate : 70 BPM P-R Int : 152 ms QRS Dur : 92 ms QT Int : 362 ms P-R-T Axes : 58 27 25 degrees QTcB Int : 390 ms Normal sinus rhythm Normal ECG When compared with ECG of 11-Apr-2025 08:15, No significant change was found Referred By: Vivian Blackwell Electronically Signed By: MAREN MARTE
[2025-09-27 14:38] LABS: MANUAL DIFF FLAG NO
[2025-09-27 14:41] LABS: Hematocrit 42.0 % (42.0-52.0); Hemoglobin 14.4 g/dl (14.0-18.0); Imm Gran Abs Auto 0.04 X10*3/uL (0.00-0.03); Imm Gran Pct Auto 0.4 % (0.0-0.4); Lymphocytes Absolute Auto 1.6 X10*3/uL (1.2-4.9); Mean Corpuscular HGB Conc 34.3 g/dl (31.0-36.0); Mean Corpuscular Hemoglobin 30.3 pg (27.0-33.0); Mean Corpuscular Volume 88.2 fL (80.0-98.0); NRBC Abs Auto 0.000 X10*3/uL (0.0-0.012); NRBC Pct Auto 0.0 /100WBC (0.0-0.2); Platelet Count 224 X10*3/uL (160-400); Red Blood Count 4.76 X10*6/uL (4.60-5.80); White Blood Count 9.7 X10*3/uL (4.8-10.8)
[2025-09-27 14:59] LABS: Anion Gap 11 (12-20); Blood Urea Nitrogen 17 mg/dL (9-16); Calcium 9.4 mg/dL (8.4-10.2); Carbon Dioxide 26 mmol/L (22-29); Chloride 105 mmol/L (96-108); Creatinine Clr Calc Pharmacy 123.4; Estimated Glomerular Filt Rate > 60; Potassium 4.1 mmol/L (3.3-5.1); Sodium 138 mmol/L (135-145)
[2025-09-27 15:05] LABS: Troponin-I High Sensitivity 4.3 ng/L (<3.5-35.0)
[2025-09-27 17:43] VITALS: BP 151/91; PULSE 61; RESP 18; TEMP 36.5; O2SAT 98
[2025-09-27 18:05] VITALS: RESP 18
[2025-09-27] MEDS: Lidocaine HCl 1%/Epi 1:100,000 20 ML VIAL 10 ML INFILTRATI (18:31)
--- NOTE | 2025-09-27 18:34 | PC.NURSE ---
Patient presented to ED from work with nail in right foot through sneaker. VSS. Patient states tetanus shot is up to date. Patient medicated IM morphine for nail extraction by provider.
[2025-09-27 19:38] VITALS: BP 138/86; PULSE 72; RESP 16; TEMP 36.7; O2SAT 96
--- OUTSIDE RECORDS SUMMARY | 2025-09-28 05:00 | XMS_ITS | Clinical Summary ---
Author Organization [employer] Address [address] [facility] 7t [place] [address] Care Team Providers Care Belt Lacer Name Role Phone Uday Moseley MD Primary [...] by mouth at bedtime. 30 tablet 2 4 Active SUMAtriptan (Imitrex) 50 MG tablet Take 1 tablet (50 mg) by mouth 1 (one) time if needed for migraine for up to 30 doses. May repeat dose once in 2 hours if no relief. Do not exceed 2 doses in 24 hours. 30 tablet 4 Active naproxen (Naprosyn) 500 MG tablet TAKE 1 TABLET BY MOUTH TWICE A DAY 60 tablet 4 Active atorvastatin (Lipitor) 20 MG tablet TOME ERIN TABLETA TODOS LOS D Active cetirizine (ZyrTEC) 10 MG tablet Take 1 tablet (10 mg) by mouth Once per day. 30 tablet 11 4 Active azelastine (Astelin) 0.1 % nasal spray Administer 1 spray into each nostril 2 times daily. Use in each nostril as directed 30 mL 12 4 Active doxycycline (Vibra-Tabs) 100 MG tablet TOME ERIN TABLETA POR V A ORAL DOS VECES AL D A FOR 7 DAYS 4 Active salicylic acid-lactic acid (Compound W) 17 % external solutionIndicati ons:Plantar wart of left foot Apply topically 2 times daily. 15 mL 3 4 Active omeprazole (PriLOSEC) [address] capsuleIndicatio ns:Gastroesophag eal reflux disease without esophagitis Take 1 capsule (20 mg) by mouth before breakfast. Do not crush or chew. 90 capsule 5 Active simethicone (Mylicon) 80 MG tabletIndication s:Gastroesophage al reflux disease without esophagitis Take 1 tablet (80 mg) by mouth every 6 (six) hours if needed (bloating). 120 tablet 5 Active Active Problems Problem Noted Date Diagnosed Date [...] intervention , [facility], Patient to engage in OP therapy , and Patient to reach out to [facility] as needed Intractable chronic migraine without aura [...] Encounters Date Type Department Care Team Description 09/27/2025 Orders Only [facility] External Provider, [facility] from Last 3 Months Immunizations Immunization Administration Dates Next Due Influenza Injectable Quadriv [...] What is your housing situation today? I have delfino quinones 03/20/[address] you li ve. Do you have problems with any of the following? None of the above 03/20/2025 Food Insecurity Answer Date Recorded Within the past 12 months, y ou worried that your food would run out before you got money to buy more: Never True 03/20/2025 Within the past 12 months,th e food you bought just didn't last and you didn't have enough money to get more: Never True 10/2025 Transportation Answer Date Recorded In the past 12 months, has l ack of transportation kept you from medical appts, meetings, work or from getting things needed for daily living? No 03/20/2025 Utilities Answer Date Recorded In the past 12 months, has t he electric, gas, oil or water company threatened to shut off services in your home? No 03/20/2025 Depression Answer Date Recorded Patient Health Questionnaire-2 Score 3 03/11/2024 Internet Access Answer Date Recorded Internet Access Q1 Yes 03/20/2025 Internet Access Q2 Not on file 03/20/2025 Sex and Gender Information Value Date Recorded Sex Assigned at Male 09/08/2022 10:19 AM EDT Legal Sex Male 10:19 AM EDT Gender Identity Male 09/08/2022 10:19 AM EDT Sexual Orientation Straight 09/08/2022 10 :19 AM EDT Last Filed Vital Signs Vital Sign Reading Time Taken Comments Blood Pressure 146/87 01/11/2025 2:22 PM EST Pulse 84 01/11/2025 2:22 PM EST Temperature 36.7 C (98 F) 01/11/2025 2:22 PM EST Respiratory Rate 20 01/11/2025 2:22 PM EST Oxygen Saturation 97% 01/11/2025 2:22 PM EST Inhaled Oxygen Concentration - - Weight 99.3 kg (219 lb) 01/11/2025 2:22 PM EST Height 172 cm (5' 7.72 ) 01/11/2025 2:22 PM EST Body Mass Index 33.57 01/11/2025 2:22 PM EST Plan of Treatment Health Maintenance Due Date Last Done Comments Disability Screening 1985 Alcohol/Substance Use Screening 1997 Family Planning (PISQ) 2000 HPV Vaccines (1 - Male 3-dose series) 2000 Hepatitis B Vaccines (1 of 3 - 19+ 3-dose series) 2004 Depression Monitoring 09/11/2024 03/11/2024, 024 COVID-19 Vaccine (2 - season) 2025 07/26/2021 Influenza Vaccine (#1) 2025 , 10/22/2020, 09/12/2019, Additional history exists Diabetes: Hemoglobin A1C 01/11/2026 025, 03/02/2024, 09/16/2022, Additional history exists Tobacco Screening 01/11/2026 01/11/2025 SDOH Screening 03/20/2026 03/20/2025 Lipid Panel 06/12/2028 06/12/2023, 01/2023, 09/16/2022, Additional [...] age to complete this topic Meningococcal B Vaccine Aged Out No l onger eligible based on patient's age to complete this topic Meningococcal Vaccine Aged Out No davina que eligible based on patient's age to complete this topic Pneumococcal Vaccine: Pediatrics (0 to 5 Years) and At-Risk Patients (6 to 49) Years Aged Out No longer eligible based on patient's age to complete this topic RSV under 20 months Aged Out No longe r eligible based on patient's age to complete this topic Rotavirus Vaccines Aged Out No longer eligible based on patient's age to complete this topic Procedures Procedure Name Priority Date/Time Associated Diagnosis Comments XR FOOT 3+ VIEWS RIGHT Routine 09/27/2025 2:39 PM EST HIGH SENSITIVITY TROPONIN I Routine 09/27/2025 2:33 PM EST BASIC METABOLIC PANEL Routine 09/27/2025 2:33 PM EST CBC WITH AUTO DIFFERENTIAL Routine 09/27/2025 2:33 PM EST POCT GLYCATED HEMOGLOBIN, TOTAL Routine 01/11/2025 3:01 PM EST Prediabetes LIPID PANEL, STANDARD Routine 06/12/2023 10:30 AM EDT Hypertriglyceridemia HEPATITIS C AB W/REFL TO HCV RNA, QN, PCR Routine 02/09/2023 8:19 AM EDT Mixed hyperlipidemia HIV 1 RNA, QN PCR W/RFL RAY (RTI,PI,INTEGRASE) Routine 02/09/2023 8:19 AM EDT Mixed hyperlipidemia from Last 3 Months or Most Recently Relevant to Health Maintenance Results * XR Foot 3+ Views Right (09/27/2025 2:39 PM EST) Anatomical Region Laterality Modality Lower Extremities, Foot Right Radiogra phic Imaging 09/27/2025 2:39 PM EST Narrative 09/27/2025 2:56 PM EST [place] [address] XRay Report Signed Patient: Antione Quintana MR #: [id number] : 1985 Acct:[id number] Age/Sex: 40 / M ADM Date: 09/27/25 Loc: HO.ED Attending Dr: Ordering Physician: Vivian Blackwell Date of Service: 09/27/25 Procedure(s): XR foot RT min 3V Accession Number(s): [id number] cc: [facility]; Vivian Blackwell Reason for Exam: stepped on nail EXAMINATION: XR FOOT 3 OR MORE VIEWS RIGHT HISTORY: stepped on nail COMPARISON: There are no prior studies available for comparison. FINDINGS: Three views of the right foot are submitted. An overlying shoe limits evaluation. No obvious fracture is identified although evaluation is limited. The joint spaces are difficult to evaluate. A metallic nail is seen extending through the sole of the tissue and into the soft tissues. XR/XR foot RT min 3V IMPRESSION: Metallic nail extending into the soft tissues of the sole of the foot. No definite osseous abnormality is seen. Evaluation is limited by the overlying shoe. Electronically signed by: Yaya Fall MD 09/27/2025 02:52 PM EST RP Dictated By: Yaya Fall MD Signed By: <Electronically signed by Yaya Fall MD in OV> 09/27/25 1452 DD/ 1439 TD/TT: 09/27/25 1446 Reed Dipper: Procedure Note Donotchelyinterpreter, Image - 09/27/[address] [address] XRay Report Signed Patient: Antione Quintana LMR #: [id number] : 1985Acct:[id number] Age/Sex: 40 / MADM Date: 09/27/25 Loc: HO.ED Attending Dr: Ordering Physician: Vivian Blackwell Date of Service: 09/27/25 Procedure(s): XR foot RT min 3V Accession Number(s): [id number] cc: [facility]; Vivian Blackwell Reason for Exam: stepped on nail EXAMINATION: XR FOOT 3 OR MORE VIEWS RIGHT HISTORY: stepped on nail COMPARISON: There are no prior studies available for comparison. FINDINGS: Three views of the right foot are submitted. An overlying shoe limits evaluation. No obvious fracture is identified although evaluation is limited. The joint spaces are difficult to evaluate. A metallic nail is seen extending through the sole of the tissue and into the soft tissues. XR/XR foot RT min 3V IMPRESSION: Metallic nail extending into the soft tissues of the sole of the foot. No definite osseous abnormality is seen. Evaluation is limited by the overlying shoe. Electronically signed by: Yaya Fall MD 09/27/2025 02:52 PM EST RP Dictated By: Yaya Fall MD Signed By: <Electronically signed by Yaya Fall MD in OV> 09/27/25 1452 DD/ 1439 TD/TT: 09/27/25 1446 Reed Dipper: [facility] [employer] [facility] External Provider IMG XR PROCEDURES Final Result * High Sensitivity Troponin I (09/27/2025 2:33 PM EST) TROPONIN I HIGH SENSITIVITY 4.3 <3.5 - 35.0 ng/L [facility] Comment:The Ramirez high sens itivity Troponin-I results should beused in conjunction with other diagnostic information suchas ECG, clinical observations and information, and patientsymptoms to aid in the diagnosis of [place]. 09/27/2025 2:33 PM EST 09/27/2025 2:36 PM EST us Generic External Data Provider LAB BLOOD ORDERAB LES Final Result [facility] [address] [place] [address] [phone] * (ABNORMAL) CBC auto differential (09/27/2025 2:33 PM EST) [facility] White Blood Count 9.7 4.8 - 10.8 X10*3/uL [facility] Red Blood Count 4.76 4.60 - 5.80 X10*6/uL [facility] Hemoglobin 14.4 14.0 - 18.0 g/dl [facility] Hematocrit 42.0 42.0 - 52.0 % [facility] Mean Corpuscular Volume 88.2 80.0 - 98.0 fL [facility] Mean Corpuscular Hemoglobin 30.3 27.0 - 33.0 pg [facility] Mean Corpuscular HGB Conc 34.3 31.0 - 36.0 g/dl [facility] Red Cell Distribution Width 12.9 11.0 - 16.0 % [facility] Platelet Count 224 160 - 400 X10*3/uL [facility] Mean Platelet Volume 10.9 9.4 - 12.4 fL [facility] Neutrophils Percent Auto 74.7(H) 45 - 73 % [facility] Imm Gran Pct Auto 0.4 0.0 - 0.4 % [facility] Lymphocytes Percent Auto 16.4(L) 20 - 40 % [facility] Monocytes Percent Auto 7.8 2 - 11 % [facility] Eosinophils Percent Auto 0.4 0 - 4 % [facility] Basophils Percent Auto 0.3 0 - 2 % [facility] NRBC Pct Auto 0.0 0.0 - 0.2 /100WBC [facility] Neutrophils Absolute Auto 7.2 2.0 - 8.3 x10*3/uL [facility] Imm Gran Abs Auto 0.04(H) 0.00 - 0.03 X10*3/uL [facility] Lymphocytes Absolute Auto 1.6 1.2 - 4.9 X10*3/uL [facility] Monocytes Absolute Auto 0.8 0.1 - 1.2 X10*3/uL [facility] Eosinophils Absolute Auto 0.0 0.0 - 0.4 X10*3/uL [facility] Basophils Absolute Auto 0.0 0.0 - 0.2 X10*3/uL [facility] NRBC Abs Auto 0.000 0.0 - 0.012 X10*3/uL [facility] 09/27/2025 2:33 PM EST 09/27/2025 2:36 PM EST us Generic External Data Provider LAB BLOOD ORDERAB LES Final Result Performing Organization Address City/State/[facility] Co de Phone Number [facility] [address] [place] [phone] * (ABNORMAL) Basic Metabolic Panel (09/27/2025 2:33 PM EST) Sodium 138 135 - 145 mmol/L [facility] Potassium 4.1 3.3 - 5.1 mmol/L [facility] Chloride 105 96 - 108 mmol/L [facility] Carbon Dioxide 26 22 - 29 mmol/L [facility] Anion Gap 11(L) 12 - 20 [facility] Urea Nitrogen (BUN) 17(H) 9 - 16 mg/dL [facility] Creatinine, Serum 0.88 0.5 - 1.4 mg/dL [facility] Creatinine Clr Calc Pharmacy 123.4 [facility] Comment:eGFR (calculated fro m the MDRD study equation) and eCrCl(calculated from the Cockcroft-Gault equation) are based ondifferent parameters and may not yield comparable results.If eCrCl result is absurd, please check patient'sheight/weight. Estimated Glomerular Filt Rate >60 [facility] Comment:Chronic Kidney Disea se: Estimated GFR < 60 mL/min/1.29g7Bfqlrx Kidney Disease: Estimated GFR < 15 mL/min/1.73m2 Glucose 96 60 - 115 mg/dL [facility] Calcium 9.4 8.4 - 10.2 mg/dL [facility] 09/27/2025 2:33 PM EST 09/27/2025 2:36 PM EST us Generic External Data Provider LAB BLOOD ORDERAB LES Final Result [facility] [address] [place] [phone] * (ABNORMAL) POCT HGB A1C (01/11/2025 3:01 PM EST) Hemoglobin A1C 6.1(A) 4.0 - 6.0 % QC Media Lot # [id number] Lot# Expiration Date Blood 01/11/2025 3:01 PM EST us Jackelin Kuo MD POINT OF CARE TEST ENTER/ED IT ORDERABLES Final Result * Lipid Panel, Standard (06/12/2023 10:30 AM EDT) Triglycerides 593 mg/dL [facility] Comment:Desirable Triglyceri de: less than 150 mg/dLBorderline High Triglyceride 150-199 mg/dLHigh Triglyceride: 200-499 mg/dLVery High Triglyceride: greater than or equal to 5OO mg/dL Cholesterol 243 mg/dL [facility] Comment:Desirable Cholestero l: less than 200 mg/dLBorderline High Cholesterol: 200-239 mg/dLHigh Cholesterol: greater than 239 mg/dL LDL Cholesterol Calculated TNP mg/dl [facility] Comment:Unable to calculate the LDL. The formula of Friedwald,Serna, and Miracle is only valid if the triglycerides areless than 400 mg/dl. HDL Cholesterol 33 mg/dL [facility] Comment:Desirable HDL: great er than 40 mg/dL Note: This HDL assay may give artificially low results in patients with liver disease. Blood Venous blood specimen / Unknown 06/12/2023 10:30 AM EDT 06/12/2023 2:26 PM EDT Uday Schreiber MD LAB BLOOD ORDERABL ES Final Result Performing Organization Address [facility]/ZIP Co de Phone Number [facility] [address] [place] [phone] * HIV-1 RNA, Quantitative, Real-Time PCR with Reflex to Genotype (RTI, PI, Integrase) (02/09/2023 8:19 AM EDT) Pathologist [facility] HIV 1 RNA, QN PCR NOT DETECTED copies/mL [facility] [employer] [facility], HIV 1 RNA, QN PCR NOT DETECTED Log copies/mL [facility] [employer] [facility], Comment: REFERENCE RANGE: NOT DETECTED copies/mL NOT DETECTED Log copies/mL This test was performed using Real-Time Polymerase Chain Reaction. Reportable range is 20 to 10,000,000 copies/mL (1.30-7.00 Log copies/mL). 02/09/2023 8:19 AM EDT 02/09/2023 8:20 AM EDT Narrative [facility] - 02/12/2023 12:55 AM EDT FASTING:YES FASTING: YES Uday Schreiber MD LAB BLOOD ORDERABL ES Final Result [facility] [address], [place] [phone] [facility], [address] [place] [phone] * Hepatitis C Antibody with Reflex to HCV, RNA, Quantitative, Real-Time PCR (02/09/2023 8:19 AM EDT) Hepatitis C Antibody NON-REACT PANKAJ NON-REACT PANAKJ [address] [facility] Index 0.02 <1.00 [facility] Comment: HCV antibody was non-reactive. There is no laboratory evidence of HCV infection. In most cases, no further action is required. However, if recent HCV exposure is suspected, a test for HCV RNA (test code 33543) is suggested. For additional information please refer to http://education.Teliris/faq/HLH79u1 (This link is being provided for informational/ educational purposes only.) Blood Venous blood specimen / Unknown 02/09/2023 8:19 AM EDT 02/09/2023 8:20 AM EDT Narrative [facility] - 02/12/2023 12:55 AM EDT FASTING:YES FASTING: YES Uday Schreiber MD LAB BLOOD ORDERABL ES Final Result [facility] [address], [place] [address] [employer] [place] [employer] [address] [place] [phone] from Last 3 Months or Most Recently Relevant to Health Maintenance Insurance [employer] Care Teams Belt Lacer Relationship Specialty Start Date End Date Uday Moseley MD [address] [place] [phone] PCP - General Internal Medicine 12/20/19
--- OUTSIDE RECORDS SUMMARY | 2025-09-28 05:00 | XMS_ITS | Encounter Summary ---
Author Organization [employer] Address [address] [facility] 7t [place] [address] Care Team Providers Care Patient Clerical Assistant Name Role Phone Uday Moseley MD Primary Care Prov ider Encounter Details Date Type Department Care Team ([facility] st Contact Info) Description 03/21/2024 Orders Only [facility] CHC MED & PEDS [address] [place], [place] [phone] Uday Moseley MD [address] [place] [phone] Social History Tobacco Use Types Packs/Day Years [...] as of this encounter Plan of Treatment Not on file documented as of this encounter Visit Diagnoses Not on filedocumented in this encounter Additional Health Concerns Assessment Noted Time PHQ-9 Depression Total Score: 9 03/11/20 24 8:29 AM EDT documented as of this encounter Care Teams Patient Clerical Assistant Relationship Specialty Start Date End Date Uday Moseley MD [address] [place] [phone] PCP - General Internal Medicine 12/20/19 documented as of this encounter
--- OUTSIDE RECORDS SUMMARY | 2025-09-28 05:00 | XMS_ITS | Encounter Summary ---
Author Organization [employer] Address [address] [facility] 7t [place] [address] Care Team Providers Care Plating Technician Name Role Phone Uday Moseley MD Primary Care Prov ider Reason for Visit * Reason Onset Date Comments Call Back Request 03/17/2024 Encounter Details Date Type Department Care Team ([facility] st Contact Info) Description 03/17/2024 Telephone [facility] MEDICINE [address] [place] [address] Uday Moseley MD [address] [place] [address] Call Back Request Social History Tobacco Use [...] documented in this encounter Plan of Treatment Not on file documented as of this encounter Visit Diagnoses Not on filedocumented in this encounter Additional Health Concerns Assessment Noted Time PHQ-9 Depression Total Score: 9 03/11/20 24 8:29 AM EDT documented as of this encounter Care Teams Plating Technician Relationship Specialty Start Date End Date Uday Moseley MD [address] [place] [phone] PCP - General Internal Medicine 12/20/19 documented as of this encounter
--- OUTSIDE RECORDS SUMMARY | 2025-09-28 05:00 | XMS_ITS | Encounter Summary ---
Author Organization [employer] Address [address] [facility] 7t [place] [address] Care Team Providers Care Oracle Hyperion Consultant Name Role Phone Uday Moseley MD Primary Care Prov ider Reason for Visit * Reason Onset Date Comments Call Back Request 01/12/2024 Encounter Details Date Type Department Care Team ([facility] st Contact Info) Description 01/12/2024 Telephone [facility] MEDICINE [address] [place] [address] Uday Moseley MD [address] [place] [address] Call Back Request Social History Tobacco Use [...] documented as of this encounter Care Teams [employer] Hyperion Consultant Relationship Specialty Start Date End Date Uday Moseley MD [address] [place] [phone] PCP - General Internal Medicine 12/20/19 documented as of this encounter
--- OUTSIDE RECORDS SUMMARY | 2025-09-28 05:00 | XMS_ITS | Encounter Summary ---
Author Organization [employer] Address [address] [facility] 7t [place] [address] Care Team Providers Care Regenerator Operator Name Role Phone Uday Moseley MD Primary Care Prov ider Encounter Details Date Type Department Care Team ([facility] Contact Info) Description 09/27/2025 Orders Only [facility] External Provider, [facility] Social History Tobacco Use Types Packs/Day Years [...] your housing situation today? I have delfino quinoens 03/20/[address] you li [...] on file documented as of this encounter Procedures Procedure Name Priority Date/Time Associated Diagnosis Comments XR FOOT 3+ VIEWS RIGHT Routine 09/27/2025 2:39 PM EST HIGH SENSITIVITY TROPONIN I Routine 09/27/2025 2:33 PM EST BASIC METABOLIC PANEL Routine 09/27/2025 2:33 PM EST documented in this encounter Results * XR Foot 3+ Views Right (09/27/2025 2:39 PM EST) Anatomical Region Laterality Modality Lower Extremities, Foot Right [facility] 09/27/2025 2:39 PM EST Narrative 09/27/2025 2:56 PM EST [place] [address] XRay Report Signed Patient: Antione Lorenzana MR #: [id number] : 1985 Acct:[id number] Age/Sex: 40 / M ADM Date: 09/27/25 Loc: HO.ED Attending Dr: Ordering Physician: Vivian Blackwell Date of Service: 09/27/25 Procedure(s): XR foot RT min 3V Accession Number(s): [id number] cc: [facility]; Vivian Blackwell Reason for Exam: stepped on [...] 09/27/25 1452 DD/ 1439 TD/TT: 09/27/25 1446 Jogger Operator: Procedure Note Donotuseinterpreter, Image - 09/27/[address] [address] XRay Report Signed Patient: Antione Lorenzana LMR #: [id number] : 1985Acct:[id number] Age/Sex: 40 / MADM Date: 09/27/25 Loc: .ED Attending Dr: Ordering Physician: Vivian Blackwell Date of Service: 09/27/25 Procedure(s): XR foot RT min 3V Accession Number(s): [id number] cc: [facility]; Vivian Blackwell Reason for Exam: stepped on [...] 09/27/2025 02:52 PM EST RP Dictated By: Yaay Fall MD Signed By: <Electronically signed by Yaya Fall MD in OV> 09/27/25 1452 DD/ 1439 TD/TT: 09/27/25 1446 Jogger Operator: [facility] External Provider IMG XR PROCEDURES Final Result * High Sensitivity Troponin I (09/27/2025 2:33 PM EST) Pathologist [facility] TROPONIN I HIGH SENSITIVITY 4.3 <3.5 - 35.0 ng/L [facility] Comment:The Ramirez high sens itivity Troponin-I results should beused in conjunction with other diagnostic information suchas ECG, clinical observations and information, and patientsymptoms to aid in the diagnosis of [place]. 09/27/2025 2:33 PM EST 09/27/2025 2:36 PM EST Generic External Data Provider LAB BLOOD ORDERAB LES Final Result Performing Organization Address City/State/[facility] Co de Phone Number [facility] [address] [place] [phone] * (ABNORMAL) Basic Metabolic Panel (09/27/2025 2:33 PM EST) Pathologist [facility] Sodium 138 135 - 145 mmol/L [facility] Potassium 4.1 3.3 - 5.1 mmol/L [facility] Chloride 105 96 - 108 mmol/L [facility] Carbon Dioxide 26 22 - 29 mmol/L [facility] Anion Gap 11(L) 12 - 20 [facility] Urea Nitrogen (BUN) 17(H) 9 - 16 mg/dL [facility] Creatinine, Serum 0.88 0.5 - 1.4 mg/dL [facility] Creatinine Clr Calc Pharmacy 123.4 [facility] Comment:eGFR (calculated fro m the MDRD study equation) and eCrCl(calculated from the Cockcroft-Gault equation) are based ondifferent parameters and may not yield comparable results.If eCrCl result is absurd, please check patient'sheight/weight. Estimated Glomerular Filt Rate >60 [facility] Comment:Chronic Kidney Disea se: Estimated GFR < 60 mL/min/1.60b8Zskndp Kidney Disease: Estimated GFR < 15 mL/min/1.73m2 Glucose 96 60 - 115 mg/dL [facility] Calcium 9.4 8.4 - 10.2 mg/dL [facility] 09/27/2025 2:33 PM EST 09/27/2025 2:36 PM EST us Generic External Data Provider LAB BLOOD ORDERAB LES Final Result [facility] [address] [place] [phone] documented in this encounter Visit Diagnoses Not on filedocumented in this encounter Additional Health Concerns Assessment Noted Time PHQ-9 Depression Total Score: 9 03/11/20 24 8:29 AM EDT documented as of this encounter Care Teams Regenerator Operator Relationship Specialty Start Date End Date Uday Moseley MD [address] [place] [phone] PCP - General Internal Medicine 12/20/19 documented as of this encounter
== END 2025-09-27 19:39 | disposition home or self-care (01) ==
PROVIDERS: Physician Assistant; Emergency Provider Emergency Medicine; PCP Internal Medicine
DX: S91.341A Puncture wound with foreign body, right foot, initial encounter (principal); W22.8XXA Striking against or struck by other objects, initial encounter; Y93.9 Activity, unspecified; Y92.9 Unspecified place or not applicable; Y99.0 Civilian activity done for income or pay
CPT/HCPCS: 36415; 64450; 73630; 76942; 80048; 84484; 85025; 93005; 96374; 99284; J2004; J2270

== ENCOUNTER → 2025-09-27 14:10 | Outpatient (BNV) | payer OTHER, SELFPAY | PROVIDERS: Visit Provider Radiology Diagnostic Radiology | DX: S91.341A Puncture wound with foreign body, right foot, initial encounter (principal) | CPT/HCPCS: 73630 ==

== ENCOUNTER → 2025-09-27 14:12 | Outpatient (BNV) | payer OTHER, SELFPAY | PROVIDERS: Emergency Provider Emergency Medicine; PCP Internal Medicine; Visit Provider Internal Medicine | DX: R07.9 Chest pain, unspecified (principal) | CPT/HCPCS: 93010 ==